=== PATIENT | female | born 1955 | race Caucasian/White ===

== ENCOUNTER 2019-11-09 20:22 | Inpatient (IN) ==
[2019-11-09] MEDS ORDERED: MoRPHine SULFATE 2 MG/ML CARP IV PRN (20:49)
[2019-11-09] MEDS ORDERED: ONDANSETRON INJ 2 MG/ML 2 ML VIAL IV STA (20:49)
[2019-11-09] MEDS ORDERED: ACETAMINOPHEN 1,000 MG/100 ML VIAL IV STA (20:49)
[2019-11-09] MEDS: SODIUM CHLORIDE 0.9% 500 ML IV SCH (21:05)
[2019-11-09] MEDS: MoRPHine SULFATE 4 MG/ML 1 ML CARP\\VIAL IV PRN ×3 (21:05→23:01)
[2019-11-09 21:23] LABS: Basophils # (auto) 0.04 K/uL (0-0.2); Basophils % (auto) 0.3 %; Eosinophils # (auto) 0.25 K/uL (0-0.5); Hematocrit (blood only) 38.5 % (37-47); Hemoglobin 12.4 g/dL (12.0-16.0); Immature Granulocytes # (auto) 0.04 K/uL (0.00-0.02); Immature Granulocytes % (auto) 0.3 %; Lymphocytes # (auto) 2.06 K/uL (1.2-3.4); Lymphocytes % (auto) 16.7 %; Mean Corpuscular Hemoglobin 30.8 pg (25-34); Mean Corpuscular Hgb Conc 32.2 g/dL (32-36); Mean Corpuscular Volume 95.8 fL (80-100); Mean Platelet Volume 10.2 fL (7.4-10.4); Monocytes # (auto) 0.88 K/uL (0.11-0.59); Monocytes % (auto) 7.1 %; Neutrophils # (auto) 9.09 K/uL (1.4-6.5); Neutrophils % (auto) 73.6 %; Platelet Count 205 K/uL (130-400); RDW Coefficient of Variation 13.2 % (11.5-14.5); RDW Standard Deviation 46.1 fL (36.4-46.3); Red Blood Count 4.02 M/uL (4.2-5.4); White Blood Count 12.36 K/uL (4.8-10.8)
[2019-11-09 21:37] LABS: Alanine Aminotransferase 49 U/L (12-78); Albumin Level 3.5 gm/dl (3.4-5.0); Aspartate Aminotransferase 55 U/L (15-37); BUN Creatinine Ratio 28.3 (10-20); Blood Urea Nitrogen 14 mg/dl (7-18); Calcium 9.1 mg/dl (8.5-10.1); Carbon Dioxide 24 mmol/L (21-32); Chloride 105 mmol/L (98-107); Creatinine Clr Calc Pharmacy 131.9 ml/min; Est GFR (African American) 118.5; Est GFR (Non-African American) 102.3; Glucose 87 mg/dl (70-99); Lipase 119 U/L (73-393); Magnesium 1.6 mg/dl (1.8-2.4); Potassium 3.6 mmol/L (3.5-5.1); Sodium 139 mmol/L (136-145)
[2019-11-09 21:41] LABS: Albumin Globulin Ratio 1.2 (0.9-2); Alkaline Phosphatase 73 U/L (45-117); Bilirubin,Total 0.4 mg/dl (0.2-1); Globulin 2.9 gm/dl (2.5-4.0); Phosphorus 3.6 mg/dl (2.5-4.9); Total Protein 6.4 gm/dl (6.4-8.2); Troponin I < 0.015 ng/ml (0-0.045)
--- NOTE | 2019-11-09 21:56 | XRay Report ---
XR chest 1V portable CLINICAL HISTORY: 64 years-old Female presenting with Chest Pain. TECHNIQUE: Portable upright AP view of the chest was obtained. COMPARISON: 10/22/2019. FINDINGS: Cardiomediastinal silhouette normal. No focal opacity. No large effusion or pneumothorax. Osseous str uctures normal. Cholecystectomy clips noted. IMPRESSION: 1. No acute cardiopulmonary disease. Electronically signed by: Delio Mesa M.D. 11/09/2019 9:55 PM
--- NOTE | 2019-11-09 21:58 | XRay Report ---
XR shoulder LT min 2V routine CLINICAL HISTORY: 64 years-old Female presenting with pain fall. TECHNIQUE: Frontal and transscapular Y views of the left shoulder were obtained. COMPARISON: None. FINDINGS: Mildly comminuted fracture of the proximal humeral metadiaphysis with one shaft width lateral displac ement of the distal fracture fragment and one shaft width posterior displacement. Prominent butterfly fracture fragment anteromedially. No convincing evidence of an underlying lesion. The glenohumeral joint remains congruent with the proximal humeral fracture fragment. Acromioclavicul ar joint congruent. Scapular grossly intact. Mild regional soft tissue swelling. No soft tissue gas. IMPRESSION: Significantly displaced and mildly comminuted proximal metadiaphyseal fracture of the left humerus. Electronically signed by: Delio Mesa M.D. 11/09/2019 9:56 PM
--- NOTE | 2019-11-09 21:59 | XRay Report ---
XR humerus LT 2V CLINICAL HISTORY: 64 years-old Female presenting with pain fall. TECHNIQUE: Frontal and lateral views of the left humerus were obtained. COMPARISON: None. FINDINGS: Mildly comminuted fracture of the proximal metadiaphysis of the left humerus with one shaft width lat eral displacement. The presence of posterior displacement better visualized on shoulder radiographs. Anteromedial butterfly fracture fragment noted. No convincing evidence of an underlying lesion to sug gest a pathologic fracture. The elbow joint remains congruent. No additional humeral fracture. IMPRESSION: Mildly comminuted and significantly displaced proximal metadiaphyseal left humerus fracture. Electronically signed by: Delio Mesa M.D. 11/09/2019 9:57 PM
--- NOTE | 2019-11-09 22:01 | XRay Report ---
XR forearm LT 2V CLINICAL HISTORY: 64 years-old Female presenting with pain fall. TECHNIQUE: Frontal and lateral views of the left forearm were obtained. COMPARISON: None. FINDINGS: Comminuted intra-articular distal radial metaphyseal fracture with at least one half shaft width dors al displacement of the articular surface of the radius as well as the carpus. There is impaction sravan g the volar aspect of the fracture plane. There is also dorsal angulation of the articular surface of the distal radius. IMPRESSION: Significantly displaced, impacted, angulated distal radial metaphyseal fracture, which is likely intr a-articular (Colles' fracture). Electronically signed by: Delio Mesa M.D. 11/09/2019 9:59 PM
--- NOTE | 2019-11-09 22:03 | XRay Report ---
XR wrist LT 2V CLINICAL HISTORY: 64 years-old Female presenting with pain fall. TECHNIQUE: Oblique and lateral views of the left wrist were obtained. COMPARISON: None. FINDINGS: Fracture of the distal radial metaphysis, which is intra-articular along the dorsal aspect of the art icular surface. There is nearly 3 mm of articular surface step-off. There is moderate apex volar angu lation of the articular surface (139 degrees). Significant impaction of the dorsal aspect of the prox imal fracture fragment and volar aspect of the distal fracture fragment. There is mild comminution of the distal radial fracture fragment. There may also be an ulnar styloid fracture. Suboptimal evaluat ion of the carpus given limited views. Regional soft tissue swelling, which is exuberant. IMPRESSION: Significantly displaced, angulated, and impacted intra-articular distal radial metaphyseal fracture ( Colles' fracture). Electronically signed by: Delio Mesa M.D. 11/09/2019 10:02 PM
[2019-11-09] MEDS ORDERED: MAGNESIUM SULFATE / D5W 1 GM/100 ML BAG IV STA (22:17)
[2019-11-09] MEDS ORDERED: XYLOCAINE 1%/SOD BICARB 20 ML VIAL INFIL ONE (22:50)
[2019-11-09] MEDS ORDERED: MoRPHine SULFATE 4 MG/ML 1 ML CARP\\VIAL IV STA (23:47)
[2019-11-10] MEDS ORDERED: HYDROmorphone INJ 1 MG/ML SYRINGE IV STA (00:51)
--- NOTE | 2019-11-10 01:11 | Consultation Report ---
DATE OF CONSULTATION: 11/09/2019 CHIEF COMPLAINT: Left shoulder and wrist pain. HISTORY OF PRESENT ILLNESS: Ms. Hale is a 64-year-old right hand dominant female who around 7:30 this evening tripped while at home and fell down to the stairs sustaining mostly impact through her left upper extremity. She was brought from her home to the Emergency Room. X-rays were obtained that demonstrated a proximal humerus fracture as well as a displaced intra-articular distal radius fracture. She has a total hip replacement scheduled on the right side with Dr. Vineet Vieira at the end of this month. She is not using assistive devices, however. She does use medical marijuana to treat her chronic hip pain. She has never had any previous problems with her left shoulder or her left wrist. PAST MEDICAL HISTORY: Obstructive sleep apnea with CPAP at 4 liters per minute of oxygen. Type 2 diabetes, well controlled. She reports her last hemoglobin A1c was 5.5. Gastroparesis, vocal cord paralysis, neuropathy, hip osteoarthritis, GERD, hyperlipidemia, hypertension, and neuropathy. PAST SURGICAL HISTORY: Reviewed in the chart. FAMILY HISTORY AND SOCIAL HISTORY: Also reviewed in the chart. She lives with her significant other in [place]. She does not use tobacco. She does use medical marijuana. MEDICATIONS: Reviewed in the chart as well. PHYSICAL EXAMINATION: GENERAL: She is a pleasant female, alert and oriented x3, in no apparent distress. Pain appears well controlled at present. Mood and affect are appropriate. SKIN: Shows some bruising just anterior to the axilla on the left arm. There are no skin breaks, abrasions or cuts. She does have some swelling noted in the proximal humerus as well as in the left wrist. MUSCULOSKELETAL: The patient is tender to palpation over the proximal humerus. Range of motion exam is deferred in the left upper extremity secondary to the fractures. She has no tenderness over the clavicle or the scapula. No tenderness around the elbow including the radial head, olecranon, medial and lateral epicondyles. She has tenderness over the distal radius with a deformity consistent with a Colles fracture, dorsal displacement of the carpus relative to the forearm. She is neurovascularly intact including sensation to median, ulnar, radial and axillary nerve distributions to light touch, although she does report some paresthesias in her hand diffusely. Fingers are warm and well perfused. She fires EPL, FPL and interossei. LABORATORY DATA: Results reviewed, H and H done today on admission shows her to be 12 and 38.5. White count is elevated at 12.3. Platelets are normal 205. Her BMP is largely unremarkable. X-rays that were done earlier this evening are reviewed. These demonstrate a 100% displaced fracture of the humeral shaft just below the surgical neck with a small area of comminution. Her wrist films show a displaced and dorsally angulated Colles fracture. IMPRESSION: A 64-year-old female with a left displaced intra-articular distal radius fracture and left displaced proximal humerus shaft fracture. PLAN: I reviewed the diagnosis with the patient. Treatment options were discussed. These include surgical and nonsurgical treatment. My recommendations for surgical management is I think she is going to have a hard time rehabbing with nonsurgical treatment of these ipsilateral upper extremity fractures. Furthermore, she is at risk for nonunion or malunion of both fractures with nonsurgical treatment. Risks and benefits of surgery were discussed in detail. The patient elects to proceed. I spoke to the operating room and they have opening to do this first thing tomorrow morning. Since she is neurovascularly intact, I recommend that she does not undergo any closed reduction at present as the potential risks outweigh the potential benefits. She will be seen and admitted by internal medicine for management of her multiple medical comorbidities. She will be n.p.o. after midnight tonight. She will be readmitted to the hospital after surgery. She does have reported medical history of a PE and we will therefore need to use Lovenox for DVT prophylaxis after surgery.
[2019-11-10] MEDS ORDERED: FLUTICASONE PROPIONATE NA SPR 16 GM BTL PRN (01:37)
[2019-11-10] MEDS ORDERED: LORazepam 1 MG/2 ML VIAL IV PRN (01:37)
[2019-11-10] MEDS ORDERED: ACETAMINOPHEN 325 MG TAB PO PRN ×2 (01:37→13:40)
[2019-11-10] MEDS ORDERED: HydrALAZINE HCL 20 MG/ML VIAL IV PRN (01:37)
[2019-11-10] MEDS ORDERED: THIAMINE HCL 100 MG in SYRINGE 9 ML IV STA (01:37)
[2019-11-10] MEDS ORDERED: NITROGLYCERIN SL 0.4 MG/TAB TAB SL PRN (01:37)
[2019-11-10] MEDS ORDERED: ONDANSETRON INJ 2 MG/ML 2 ML VIAL IV PRN ×2 (01:37→08:15)
[2019-11-10] MEDS ORDERED: diazePAM 2 MG TABLET PO PRN (01:37)
[2019-11-10] MEDS ORDERED: CLOBETASOL PROPIONATE 0.05% OINT 15 GM TUBE EXT PRN (01:47)
[2019-11-10] MEDS ORDERED: GLUCOSE 40% GEL 15 GM TUBE PO PRN (02:00)
[2019-11-10] MEDS ORDERED: GLUCAGON FOR INJ 1 MG VIAL SQ PRN (02:00)
[2019-11-10] MEDS ORDERED: DEXTROSE 50% 50 ML SYRINGE IV PRN (02:00)
[2019-11-10] MEDS ORDERED: CARBOHYDRATES FOR HYPOGLYCEMIA PO PRN (02:00)
[2019-11-10] MEDS ORDERED: GLUCOSE 10 TABS/TUBE PO PRN (02:00)
[2019-11-10] MEDS: SODIUM CHLORIDE 0.9% 1000ML 1,000 ML IV SCH (02:15)
[2019-11-10] MEDS: MAGNESIUM SULFATE / D5W 1 GM/100 ML BAG IV SCH ×2 (02:20→03:25)
--- NOTE | 2019-11-10 02:43 | History and Physical Report ---
DATE OF ADMISSION: 11/10/2019 CHIEF COMPLAINT: Status post fall. HISTORY OF PRESENT ILLNESS: This is a 64-year-old female with past medical history significant for type 2 diabetes, MTHFR mutation, history of pulmonary embolism in 2002, hyperlipidemia, sleep apnea on BiPAP with 4 liters oxygen, hypertension, gastroparesis, displacement of lumbar intervertebral disc without myelopathy, history of actinic keratosis, migraine, depression. The patient presents with mechanical fall. The patient says she took her trash can and she put on the lift at the basement stair, thinking about to dispose in the garbage can tomorrow, but the trash started to roll down the stairs and she tried to catch it and in the process she fell down the stairs of the basement and she laid down and she had significant pain in the left shoulder and left upper extremity. No loss of consciousness. Did not hit her head. EMS was called and she was brought in here. Imaging studies show mildly comminuted and significantly displaced proximal metadiaphyseal left humerus fracture and also significantly displaced, impacted angulated distal radial metaphyseal fracture, likely Colles fracture. Ortho was consulted by the ER and they tried to reduce the fracture in the ER, but apparently decided to go to OR in the morning and we are called for admission. The patient has complains of significant pain in the injury site and requesting pain medications. Otherwise, hemodynamics are stable. Denies any chest pain, no shortness of breath, no cough, no nausea, no vomiting, no fever or chills, no headache, no dizziness, no blurred visions, no earache, no runny nose, no sore throat. Appetite is okay. Sleeps okay. No recent weight gain or weight loss. She says she always sweats in the night. No abdominal pain. Normal bowel and bladder movements. No blood in the stools, no black stools, no hematuria, no burning micturition, no swelling in the legs, no rash. She lives with her partner. She has right rotator cuff problem and also right hip problem, and because of that she ambulates with a cane, but she says she ambulates fine with cane and she can climb steps without any problem. She was supposed to get surgery of her right hip at the end of this month. Sys she drinks four glasses of wine every day and takes medical marijuana for her pains but not every day. Denies any withdrawal symptoms if does not take wine. ALLERGIES: ERYTHROMYCIN, MORPHINE, PENICILLIN, PERCOCET, AND VICODIN. PAST MEDICAL HISTORY: As mentioned above. PAST SURGICAL HISTORY: Excision of breast lesion, colonoscopy, and laparoscopic cholecystectomy. MEDICATIONS: The patient is on Valium 2 mg every 6 hours p.r.n., metformin 750 mg p.o. daily, Voltaren 75 mg p.o. b.i.d., Lasix 20 mg p.o. daily, labetalol 100 mg p.o. b.i.d., lisinopril 20 mg b.i.d., Cymbalta 90 mg p.o. daily, atorvastatin 20 mg p.o. daily, gabapentin 200 mg p.o. t.i.d., clobetasol 0.05% cream apply to affected area b.i.d. p.r.n., Flonase 2 sprays into each nostril daily, aspirin 81 mg p.o. daily, oxygen 4 liters through BiPAP during all periods of sleep, vitamin B complex 1 tablet daily, vitamin D 1000 units p.o. daily, Prilosec 20 mg p.o. daily. FAMILY HISTORY: Significant for: Mother had a pacemaker. Father had pulmonary embolism. SOCIAL HISTORY: No smoking history. Alcohol, she drinks 4 glasses of wine every day. No smoking. Drugs, she takes medical marijuana for her heart pains. REVIEW OF SYSTEMS: As per HPI. Rest of review of systems is negative. PHYSICAL EXAMINATION: GENERAL: The patient is alert and awake, not in acute distress. VITAL SIGNS: Temperature 37, pulse 85, respirations 16, blood pressure 148/79, oxygen 95% on 6 liters. HEENT: No pallor, no icterus. Pupils equal, round, reactive to light. Extraocular muscles intact. NECK: No JVD, no neck masses, no carotid bruits. CARDIOVASCULAR: S1, S2 heard, regular rate and rhythm. No murmur, no gallop. RESPIRATORY SYSTEM: Normal AP diameter. No accessory muscle use. No wheezing, no crackles. ABDOMEN: Soft, bowel sounds present, nontender. No distention. CENTRAL NERVOUS SYSTEM: Alert and oriented. Nonfocal. EXTREMITIES: Left upper extremity with ice packs, can able to move other extremities. No edema, no erythema seen. LABORATORIES DATA: WBC 12.3, hemoglobin 12.4, hematocrit 38.5, platelets 205. Sodium 139, potassium 3.6, chloride 105, bicarbonate 24, BUN 14, creatinine 0.5, serum glucose 87, calcium 9.1, phosphorus 3.6, magnesium 1.6, total bilirubin 0.4, AST 55, ALT 49, alkaline phosphatase 73. Troponin I less than 0.015. Lipase 119. IMAGING: Chest x-ray: No acute cardiopulmonary disease. Forearm x-ray significantly displaced, impacted, angulated distal radial metaphyseal fracture which is likely intra-articular Colles fracture. Humerus x-ray, mildly comminuted and significantly displaced proximal metadiaphyseal left humerus fracture. Left shoulder x-ray, significantly displaced, mildly comminuted, proximal metadiaphyseal fracture of the left humerus. Wrist x-ray, left wrist x-ray significantly displaced, angulated impacted intraarticular distal radial metaphyseal fracture. EKG: Normal sinus rhythm, rate of 86, decreased amplitude in anterolateral leads. ASSESSMENT AND PLAN: This is a 64-year-old female who presents with mechanical fall and left humerus fracture and left distal radius fracture. 1. Fall, mechanical fall, left humerus fracture, mildly comminuted, displaced proximal left humerus fracture and also significantly displaced, impacted angulated distal radial fracture. Ortho was notified by the ER and there is plan for take her to the OR in the morning. The patient's labs are okay except for low magnesium, which we will replace. Chest x-ray: No acute findings. Initial troponin negative. EKGs, decreased amplitude in the anterolateral leads, otherwise unremarkable. The patient says she walks with a cane because of the right hip pain, but she can ambulate fine and climb steps okay. Because of some minor EKG changes, we will monitor in med/surg tele with serial cardiac enzymes. If cardiac enzymes are negative, the patient should be at acceptable risk to proceed with surgery. We will keep her n.p.o. and consult ortho. Pain control with IV Dilaudid p.r.n. We will place on IV normal saline 125 mL per hour. 2. Hypomagnesemia. We will replace. 3. Diabetes. We will hold metformin, place her on insulin sliding scale. Follow HbA1c levels, currently n.p.o. 4. History of pulmonary embolism, history of MTHFR mutation. The patient had bilateral pulmonary emboli in 2002. She was on Coumadin until 2009 and 2010. She was advised to stop after 1 year, pulmonary embolism thought to be from MTHFR mutation, and at that time she was also on Hormone pills, but finally she stopped Coumadin in 2009 and 2010 and she did not have any issues since then. 5. Sleep apnea, on BiPAP with 4 liters which we will continue. 6. Hypertension. Continue her labetalol, diuretics. Hold her lisinopril for procedure. Restart after the procedure. We will place on IV hydralazine p.r.n. for now. 7. Depression. Continue Cymbalta. 8. Anxiety. Valium p.r.n. We will hold aspirin until the procedure. 9. History of chronic pain, hip and shoulders. Pain control. Getting pain medication as above. We will hold her diclofenac sodium and continue gabapentin. 10. Alcoholism. drinks 4 glasses of wine every day. Will give Thiamine and multivitamins. Monitor for any withdrawal. IV Ativan prn. 10. Deep venous thrombosis prophylaxis, sequential compression devices for now. 11. Disposition: Closely monitor in the med/surg tele. Level 1 full code. MTDD
--- NOTE | 2019-11-10 03:05 | Emergency Department Note ---
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 The patient states that she took the kitchen trash bag out of the garbage today and set it on a stair lift. She noticed that the stair lift began to move so she reached for the bag and suddenly fell. She states that she did not hit her head and did not pass out. The patient currently complains of left shoulder and left arm pain. Of note she states that she did not feel short of breath today but was placed on O2 by EMS due to her stats. Additionally she is not on blood thinners. The patient is also scheduled for a bilateral hip replacement on November 23, 2019. She also reports that her diagnosis of paralyzed vocal cords was 1 day ago and she was told that it may be due to a virus. She was placed on steroids with no relief and is scheduled for a CT next week. She denies neck pain and offers no additional concerns at this time. Home Medications Home Medications Medication Instructions Recorded Confirmed Type Prilosec OTC 20 mg PO QPM 08/21/18 11/09/19 History aspirin [Aspir-81] 81 mg PO QPM 08/21/18 11/09/19 History atorvastatin 20 mg PO HS 08/21/18 11/09/19 History diazepam [Valium] 2 mg PO Q6 PRN 08/21/18 11/09/19 History furosemide [Lasix] 40 mg PO QAM 08/21/18 11/09/19 History gabapentin [Neurontin] 1,200 mg PO TID 08/21/18 11/09/19 History lisinopril 40 mg PO QAM 08/21/18 11/09/19 History clobetasol 1 applic TOPICAL DAILY PRN 10/17/19 11/09/19 History duloxetine 90 mg PO HS 10/17/19 11/09/19 History fluticasone propionate [Flonase 2 spray INTRANASAL DAILY PRN 10/17/19 11/09/19 History Allergy Relief] tobramycin-dexamethasone 1 drp OPHTHALMIC (EYE) Q6H PRN 10/17/19 11/09/19 Hist ory cholecalciferol (vitamin D3) 1,000 unit PO DAILY 11/09/19 11/09/19 History [Vitamin D3] diclofenac sodium 75 mg PO BID 11/09/19 11/09/19 History labetalol 100 mg PO BID 11/09/19 11/09/19 History metformin [Glucophage XR] 750 mg PO DAILY 11/09/19 11/09/19 History vitamin B complex 1 tab PO DAILY 11/09/19 11/09/19 History Allergies Allergy/AdvReac Type Severity Reaction Status Date / Time hydrocodone Allergy Intermediate ITCHING Verified 11/09/19 21:26 AND VOMITING nickel Allergy Intermediate SWELLING Verified 11/09/19 21:26 AND ITCHING adhesive Allergy Unknown WELTS WITH Verified 11/09/19 21:26 TAPE-PAPER TAPE OKAY codeine Allergy Unknown ITCHING Verified 11/09/19 21:26 AND VOMITING erythromycin base Allergy Unknown METAL Verified 11/09/19 21:26 TASTE IN MOUTH, VOMITING tramadol Allergy Unknown ITCHING Verified 11/09/19 21:26 oxycodone AdvReac Mild ITCH, N&V Verified 11/09/19 21:26 morphine AdvReac Unknown ITCHING, Verified 11/09/19 21:26 VOMITING Penicillins AdvReac Unknown HEART Verified 11/09/19 21:26 RACING Past Med/Surg History Medical History Anemia Anxiety Aspiration pneumonia (Resolved 01/03/12) Barretts esophagus Chronic back pain Depression Diabetes mellitus type 2, controlled Gastroparesis GERD (gastroesophageal reflux disease) controlled Hyperlipidemia Hypertension Migraine MTHFR gene mutation Nocturnal hypoxia Osteoarthritis Peripheral neuropathy Polyp of colon (01/03/12) Pulmonary embolism B/L (2002)- suspected due to OCPs but also diagnosed with MTHFR mutation/previously on anticoagulation (since discontinued) Refractory migraine with aura (01/03/12) Sleep apnea BIPAP with 4L HS Surgical History History of ankle surgery LEFT LIGAMENT REPAIR History of breast biopsy History of cholecystectomy History of colonoscopy History of dilatation and curettage ABLATION History of esophagogastroduodenoscopy (EGD) EGD: 08/23/18: MAC sedation History of tooth extraction Family History Mother Family hx colonic polyps Aunt Family history of diabetes mellitus Social History Preferred Language: Spanish Communication Ability: Effective 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 and A total of 10 systems reviewed and were otherwise negative Physical Exam Vital Signs Vital Signs - 24 hr 11/09/19 20:28 11/09/19 20:30 11/09/19 20:44 Temperature 37 C Temperature Source Oral Pulse Rate 82 77 87 Pulse Rate [Right Finger] Pulse Rate from SpO2 Sensor 82 85 Respiratory Rate 19 19 22 Respiratory Effort / Characteristics Respiratory Depth Blood Pressure 102/72 102/72 Blood Pressure [Right Arm] Blood Pressure Mean 74 82 Blood Pressure Mean [Right Arm] Blood Pressure Position [Right Arm] Pulse Oximetry 99 87 L 99 Oxygen Delivery Method Room Air Oxygen Flow Rate Sepsis Recent Fever Within 48 Hours No Sepsis New/Unexplained Change in Mental Status No Sepsis Action Taken by Nursing No Action Required 11/09/19 20:50 11/09/19 21:00 11/09/19 21:10 Temperature Temperature Source Pulse Rate 81 87 88 Pulse Rate [Right Finger] Pulse Rate from SpO2 Sensor 81 86 Respiratory Rate 16 23 15 Respiratory Effort / Characteristics Respiratory Depth Blood Pressure Blood Pressure [Right Arm] Blood Pressure Mean Blood Pressure Mean [Right Arm] Blood Pressure Position [Right Arm] Pulse Oximetry 97 97 Oxygen Delivery Method Oxygen Flow Rate Sepsis Recent Fever Within 48 Hours Sepsis New/Unexplained Change in Mental Status Sepsis Action Taken by Nursing 11/09/19 21:20 11/09/19 22:04 11/09/19 22:05 Temperature Temperature Source Pulse Rate 80 68 72 Pulse Rate [Right Finger] Pulse Rate from SpO2 Sensor 81 68 72 Respiratory Rate 18 17 14 Respiratory Effort / Characteristics Respiratory Depth Blood Pressure 100/48 L Blood Pressure [Right Arm] Blood Pressure Mean 61 Blood Pressure Mean [Right Arm] Blood Pressure Position [Right Arm] Pulse Oximetry 97 96 94 Oxygen Delivery Method Oxygen Flow Rate Sepsis Recent Fever Within 48 Hours Sepsis New/Unexplained Change in Mental Status Sepsis Action Taken by Nursing 11/09/19 22:06 11/09/19 22:10 11/09/19 22:20 Temperature Temperature Source Pulse Rate 74 77 Pulse Rate [Right Finger] 72 Pulse Rate from SpO2 Sensor 74 78 Respiratory Rate 16 21 20 Respiratory Effort / Characteristics Respiratory Depth Blood Pressure Blood Pressure [Right Arm] 100/48 L Blood Pressure Mean Blood Pressure Mean [Right Arm] 65 Blood Pressure Position [Right Arm] Sitting Pulse Oximetry 94 98 97 Oxygen Delivery Method Nasal Cannula Oxygen Flow Rate 4 Sepsis Recent Fever Within 48 Hours Sepsis New/Unexplained Change in Mental Status Sepsis Action Taken by Nursing 11/09/19 22:30 11/09/19 22:40 11/09/19 22:50 Temperature Temperature Source Pulse Rate 75 78 79 Pulse Rate [Right Finger] Pulse Rate from SpO2 Sensor 75 77 79 Respiratory Rate 13 17 16 Respiratory Effort / Characteristics Respiratory Depth Blood Pressure Blood Pressure [Right Arm] Blood Pressure Mean Blood Pressure Mean [Right Arm] Blood Pressure Position [Right Arm] Pulse Oximetry 97 97 95 Oxygen Delivery Method Oxygen Flow Rate Sepsis Recent Fever Within 48 Hours Sepsis New/Unexplained Change in Mental Status Sepsis Action Taken by Nursing 11/09/19 22:57 11/09/19 22:58 11/09/19 23:00 Temperature Temperature Source Pulse Rate 77 Pulse Rate [Right Finger] Pulse Rate from SpO2 Sensor 79 Respiratory Rate 15 Respiratory Effort / Characteristics Respiratory Depth Blood Pressure Blood Pressure [Right Arm] Blood Pressure Mean Blood Pressure Mean [Right Arm] Blood Pressure Position [Right Arm] Pulse Oximetry 97 96 Oxygen Delivery Method Nasal Cannula Nasal Cannula Oxygen Flow Rate 4 4 Sepsis Recent Fever Within 48 Hours Sepsis New/Unexplained Change in Mental Status Sepsis Action Taken by Nursing 11/09/19 23:15 11/09/19 23:20 11/09/19 23:30 Temperature Temperature Source Pulse Rate 76 83 84 Pulse Rate [Right Finger] Pulse Rate from SpO2 Sensor 76 83 84 Respiratory Rate 18 15 9 L Respiratory Effort / Characteristics Respiratory Depth Blood Pressure Blood Pressure [Right Arm] Blood Pressure Mean Blood Pressure Mean [Right Arm] Blood Pressure Position [Right Arm] Pulse Oximetry 98 97 99 Oxygen Delivery Method Oxygen Flow Rate Sepsis Recent Fever Within 48 Hours Sepsis New/Unexplained Change in Mental Status Sepsis Action Taken by Nursing 11/09/19 23:38 11/09/19 23:40 11/09/19 23:51 Temperature Temperature Source Pulse Rate 82 83 83 Pulse Rate [Right Finger] 80 Pulse Rate from SpO2 Sensor 81 83 83 Respiratory Rate 15 20 18 Respiratory Effort / Characteristics Non-Labored Spontaneous Respiratory Depth Normal Blood Pressure 148/79 H 101/50 L Blood Pressure [Right Arm] 148/79 H Blood Pressure Mean 91 71 Blood Pressure Mean [Right Arm] 102 Blood Pressure Position [Right Arm] Pulse Oximetry 96 95 97 Oxygen Delivery Method Nasal Cannula Oxygen Flow Rate 6 Sepsis Recent Fever Within 48 Hours Sepsis New/Unexplained Change in Mental Status Sepsis Action Taken by Nursing 11/09/19 23:54 11/10/19 00:00 11/10/19 00:01 Temperature Temperature Source Pulse Rate 80 82 Pulse Rate [Right Finger] 85 Pulse Rate from SpO2 Sensor 81 82 Respiratory Rate 16 19 18 Respiratory Effort / Characteristics Non-Labored Spontaneous Respiratory Depth Normal Blood Pressure 108/57 L Blood Pressure [Right Arm] 101/50 L Blood Pressure Mean 73 Blood Pressure Mean [Right Arm] 67 Blood Pressure Position [Right Arm] Pulse Oximetry 95 97 98 Oxygen Delivery Method Nasal Cannula Oxygen Flow Rate 6 Sepsis Recent Fever Within 48 Hours Sepsis New/Unexplained Change in Mental Status Sepsis Action Taken by Nursing 11/10/19 00:10 11/10/19 00:21 11/10/19 00:30 Temperature Temperature Source Pulse Rate 80 78 84 Pulse Rate [Right Finger] Pulse Rate from SpO2 Sensor 80 79 84 Respiratory Rate 19 29 H 22 Respiratory Effort / Characteristics Respiratory Depth Blood Pressure 117/67 Blood Pressure [Right Arm] Blood Pressure Mean 77 Blood Pressure Mean [Right Arm] Blood Pressure Position [Right Arm] Pulse Oximetry 98 99 96 Oxygen Delivery Method Oxygen Flow Rate Sepsis Recent Fever Within 48 Hours Sepsis New/Unexplained Change in Mental Status Sepsis Action Taken by Nursing 11/10/19 00:40 Temperature Temperature Source Pulse Rate 86 Pulse Rate [Right Finger] Pulse Rate from SpO2 Sensor 86 Respiratory Rate 14 Respiratory Effort / Characteristics Respiratory Depth Blood Pressure Blood Pressure [Right Arm] Blood Pressure Mean Blood Pressure Mean [Right Arm] Blood Pressure Position [Right Arm] Pulse Oximetry 100 Oxygen Delivery Method Oxygen Flow Rate Sepsis Recent Fever Within 48 Hours Sepsis New/Unexplained Change in Mental Status Sepsis Action Taken by Nursing GENERAL: Awake, alert, uncomfortable-appearing, in no distress HENT: Normocephalic, atraumatic. Oropharynx with dry mucous membranes and oth erwise unremarkable. EYES: Normal conjunctiva. Sclera non-icteric. NECK: Supple. No nuchal rigidity. FROM. No JVD. RESPIRATORY: CTAB. CARDIAC: Regular rate, normal rhythm. Extremities warm and well perfused. Pulses equal. ABDOMEN: Soft, non-distended. No tenderness to palpation. No rebound or guarding. No masses. RECTAL: Deferred. MUSCULOSKELETAL: Chest examination reveals no tenderness. The back is symmetrical on inspection without obvious abnormality. There is no CVA tende rness to palpation. No joint edema. Deformity to left shoulder and left wrist with distal PMS intact. LOWER EXTREMITIES: Calves are equal size bilaterally and non-tender. No edema. No discoloration. NEURO: Normal sensorium. No sensory or motor deficits noted. SKIN: No rash or jaundice noted. Course Course 2039: Past medical records reviewed. The patient was evaluated in room A02. A complete history and physical exam was performed. 0667: Spoke to Dr. Galicia, Orthopaedic Surgery who will take the patient to the OR in the morning. Dr. Cabrera, [facility] will admit the patient. The patient verbally expressed understanding and agreement of the treatment plan. The patient will be evaluated for further treatment. Administered Medications Acetaminophen (Tylenol) 1,000 mg PO Q6H PRN PRN Reason: Moderate Pain Stop: 12/10/19 16:19 Last Admin: 11/11/19 00:57 Dose: 1,000 mg Documented by: [id number] Atorvastatin Calcium (Lipitor) 20 mg PO HS PADMAJA Stop: 12/10/19 20:59 Last Admin: 11/10/19 20:13 Dose: 20 mg Documented by: [id number] Diphenhydramine HCl (Benadryl Capsule) 25 mg PO Q6H PRN PRN Reason: Itching Stop: 12/10/19 16:29 Last Admin: 11/11/19 03:06 Dose: 25 mg Documented by: [id number] Duloxetine HCl (Cymbalta) 90 mg PO HS [facility] Stop: 12/10/19 20:59 Last Admin: 11/10/19 20:14 Dose: 90 mg Documented by: [id number] Furosemide (Lasix) 40 mg PO QAM [facility] Stop: 12/10/19 08:59 Last Admin: 11/10/19 15:33 Dose: Not Given Documented by: [id number] Gabapentin (Neurontin) 1,200 mg PO TID [facility] Stop: 12/10/19 08:59 Last Admin: 11/10/19 20:13 Dose: 1,200 mg Documented by: [id number] Admin: 11/10/19 15:37 Dose: 1,200 mg Documented by: [id number] Admin: 11/10/19 15:03 Dose: Not Given Documented by: [id number] Hydromorphone HCl (Dilaudid) 1 mg IV Q2H PRN PRN Reason: very severe (9 - 10 / 10) pain Stop: 11/24/19 16:19 Last Admin: 11/11/19 00:58 Dose: 1 mg Documented by: [id number] Admin: 11/10/19 20:31 Dose: 1 mg Documented by: [id number] Labetalol HCl (Normodyne) 100 mg PO BID [facility] Stop: 12/10/19 08:59 Last Admin: 11/10/19 20:12 Dose: 100 mg Documented by: [id number] Admin: 11/10/19 15:34 Dose: 100 mg Documented by: [id number] Polyethylene Glycol (Miralax Powder Packet) 17 gm PO DAILY PRN PRN Reason: Constipation Stop: 12/10/19 01:36 Last Admin: 11/10/19 18:05 Dose: 17 gm Documented by: [id number] Thiamine HCl (Vitamin B-1) 50 mg PO QAM [facility] Stop: 12/10/19 08:59 Last Admin: 11/10/19 15:35 Dose: 50 mg Documented by: [id number] Vitamin B Complex (Vitamin B Complex) 1 tab PO DAILY [facility] Stop: 12/10/19 08:59 Last Admin: 11/10/19 15:35 Dose: 1 tab Documented by: [id number] Vitamin D (Vitamin D3) 1,000 units PO DAILY [facility] Stop: 12/10/19 08:59 Last Admin: 11/10/19 15:36 Dose: 1,000 units Documented by: [id number] Discontinued Medications Cefazolin Sodium (Ancef 2000mg) Confirm Administered Dose 2,000 mg IV .STK-MED ONE Stop: 11/10/19 09:31 Last Admin: 11/10/19 09:32 Dose: 2,000 mg Documented by: [id number] Hydromorphone HCl (Dilaudid) 1 mg IV NOW STA Stop: 11/10/19 00:52 Last Admin: 11/10/19 01:09 Dose: 1 mg Documented by: [id number] Hydromorphone HCl (Dilaudid) 1 mg IV Q3H PRN PRN Reason: Pain Stop: 11/24/19 01:36 Last Admin: 11/10/19 09:05 Dose: 1 mg Documented by: [id number] Admin: 11/10/19 03:23 Dose: 1 mg Documented by: [id number] Hydromorphone HCl (Dilaudid) 0.5 mg IV NOW STA Stop: 11/10/19 05:40 Last Admin: 11/10/19 05:44 Dose: 0.5 mg Documented by: [id number] Hydromorphone HCl (Dilaudid) Confirm Administered Dose 0.5 mg .ROUTE .STK-MED ONE Stop: 11/10/19 05:44 Last Admin: 11/10/19 05:46 Dose: Not Given Documented by: [id number] Sodium Chloride (Nss) 500 mls @ 125 mls/hr IV .Q4H [facility] Stop: 12/09/19 20:59 Last Infusion: 11/09/19 22:05 Dose: 0 mls/hr Documented by: [id number] Admin: 11/09/19 21:05 Dose: 125 mls/hr Documented by: [id number] Acetaminophen (Ofirmev) 1,000 mg in 100 mls @ 400 mls/hr IV NOW STA Stop: 11/09/19 21:03 Last Infusion: 11/09/19 21:30 Dose: 0 mls/hr Documented by: [id number] Admin: 11/09/19 21:05 Dose: 400 mls/hr Documented by: [id number] Magnesium Sulfate/Dextrose (Magnesium Sulfate / D5w) 1 gm in 100 mls @ 100 mls/hr IV Q1H STA Stop: 11/09/19 23:16 Last Infusion: 11/09/19 23:00 Dose: 0 mls/hr Documented by: [id number] Admin: 11/09/19 22:26 Dose: 100 mls/hr Documented by: [id number] Sodium Chloride (Nss 1000ml) 1,000 mls @ 125 mls/hr IV .Q8H [facility] Stop: 12/10/19 01:36 Last Infusion: 11/10/19 10:15 Dose: 0 mls/hr Documented by: [id number] Admin: 11/10/19 02:15 Dose: 125 mls/hr Documented by: [id number] Magnesium Sulfate/Dextrose (Magnesium Sulfate / D5w) 1 gm in 100 mls @ 100 mls/hr IV Q1H [facility] Stop: 11/10/19 03:36 Last Infusion: 11/10/19 04:51 Dose: 0 mls/hr Documented by: [id number] Admin: 11/10/19 03:25 Dose: 100 mls/hr Documented by: [id number] Infusion: 11/10/19 03:21 Dose: 0 mls/hr Documented by: [id number] Admin: 11/10/19 02:20 Dose: 100 mls/hr Documented by: [id number] Thiamine HCl 100 mg/ Syringe 10 mls @ 2 mls/min IV NOW STA Stop: 11/10/19 01:41 Last Admin: 11/10/19 02:17 Dose: 2 mls/min Documented by: [id number] Cefazolin Sodium (Ancef 2000mg) 2,000 mg in 15 mls @ 3.75 mls/min IV PREOP ONE Stop: 11/10/19 11:52 Last Admin: 11/10/19 11:45 Dose: 3.75 mls/min Documented by: [id number] Insulin Aspart (Novolog Flexpen) 0 units SC ACHS [facility] Stop: 12/10/19 07:29 Last Admin: 11/10/19 07:56 Dose: Not Given Documented by: [id number] Cosigned by: [id number] Lidocaine HCl (Buffered Lidocaine 1%) 20 ml INFIL NOW ONE Stop: 11/09/19 22:51 Last Admin: 11/09/19 23:00 Dose: 20 ml Documented by: [id number] Morphine Sulfate (Morphine Sulfate) 4 mg IV Q1H PRN PRN Reason: Severe Pain (Rating 7,8,9,10) Stop: 11/23/19 20:48 Last Admin: 11/09/19 23:01 Dose: 4 mg Documented by: [id number] Admin: 11/09/19 22:04 Dose: 4 mg Documented by: [id number] Admin: 11/09/19 21:05 Dose: 4 mg Documented by: [id number] Morphine Sulfate (Morphine Sulfate) 4 mg IV NOW STA Stop: 11/09/19 23:48 Last Admin: 11/09/19 23:51 Dose: 4 mg Documented by: [id number] Multivitamins/Minerals (Multivitamin W/ Minerals Tab) 1 tab PO QAM PADMAJA Stop: 12/10/19 08:59 Last Admin: 11/10/19 19:33 Dose: Not Given Documented by: [id number] Ondansetron HCl (Zofran) 4 mg IV NOW STA Stop: 11/09/19 20:50 Last Admin: 11/09/19 21:05 Dose: 4 mg Documented by: [id number] Oxycodone HCl (Roxicodone Immediate Rel) 5 mg PO Q4 PRN PRN Reason: Pain Stop: 11/24/19 13:39 Last Admin: 11/10/19 16:07 Dose: 5 mg Documented by: [id number] Medical Decision Making Differential Diagnosis Differential diagnosis includes but is not limited to etiologies such as fracture, dislocation, contusion, strain, ligamentous injury, tendon rupture, and septic joint. Medical Records Attestation: I reviewed the patient's medical records. Home Medications Current Medication List: was personally reviewed by me Laboratory Data Attestation: I reviewed the patient's lab results. Result diagrams: 11/10/19 07:29 11/10/19 07:29 Lab Results 11/09/19 11/09/19 Range/Units 21:06 21:06 WBC 12.36 H (4.8-10.8) K/uL RBC 4.02 L (4.2-5.4) M/uL Hgb 12.4 (12.0-16.0) g/dL Hct 38.5 (37-47) % MCV 95.8 (80-100) fL MCH 30.8 (25-34) pg MCHC 32.2 (32-36) g/dL RDW Std Deviation 46.1 (36.4-46.3) fL RDW Coeff of Shanna 13.2 (11.5-14.5) % Plt Count 205 (130-400) K/uL MPV 10.2 (7.4-10.4) fL Immature Gran % (Auto) 0.3 % Neut % (Auto) 73.6 % Lymph % (Auto) 16.7 % [place] % (Auto) 7.1 % Eos % (Auto) 2.0 % Baso % (Auto) 0.3 % Immature Gran # (Auto) 0.04 H (0.00-0.02) K/uL Neut # (Auto) 9.09 H (1.4-6.5) K/uL Lymph # (Auto) 2.06 (1.2-3.4) K/uL [place] # (Auto) 0.88 H (0.11-0.59) K/uL Eos # (Auto) 0.25 (0-0.5) K/uL Baso # (Auto) 0.04 (0-0.2) K/uL Sodium 139 (136-145) mmol/L Potassium 3.6 (3.5-5.1) mmol/L Chloride 105 (98-107) mmol/L Carbon Dioxide 24 (21-32) mmol/L Anion Gap 10.0 (3-11) BUN 14 (7-18) mg/dl Creatinine 0.50 L (0.6-1.2) mg/dl Est Cr Clr Drug Dosing 131.9 ml/min Est GFR ( Amer) 118.5 Est GFR (Non-Af Amer) 102.3 BUN/Creatinine Ratio 28.3 H (10-20) Glucose 87 (70-99) mg/dl Calcium 9.1 (8.5-10.1) mg/dl Phosphorus 3.6 (2.5-4.9) mg/dl Magnesium 1.6 L (1.8-2.4) mg/dl Total Bilirubin 0.4 (0.2-1) mg/dl AST 55 H (15-37) U/L ALT 49 (12-78) U/L Alkaline Phosphatase 73 (45-117) U/L Troponin I < 0.015 (0-0.045) ng/ml Total Protein 6.4 (6.4-8.2) gm/dl Albumin 3.5 (3.4-5.0) gm/dl Globulin 2.9 (2.5-4.0) gm/dl Albumin/Globulin Ratio 1.2 (0.9-2) Lipase 119 (73-393) U/L Imaging Data Radiologist's Impression: Radiology results as stated below per my review and the radiologist's interpretation: XR chest 1V portable CLINICAL HISTORY: 64 years-old Female presenting with Chest Pain. TECHNIQUE: Portable upright AP view of the chest was obtained. COMPARISON: 10/22/2019. FINDINGS: Cardiomediastinal silhouette normal. No focal opacity. No large effusion or pneumothorax. Osseous structures normal. Cholecystectomy clips noted. IMPRESSION: 1. No acute cardiopulmonary disease. Electronically signed by: Delio Mesa M.D. 11/09/2019 9:55 PM XR forearm LT 2V CLINICAL HISTORY: 64 years-old Female presenting with pain fall. TECHNIQUE: Frontal and lateral views of the left forearm were obtained. COMPARISON: None. FINDINGS: Comminuted intra-articular distal radial metaphyseal fracture with at least one half shaft width dorsal displacement of the articular surface of the radius as well as the carpus. There is impaction along the volar aspect of the fracture plane. There is also dorsal angulation of the articular surface of the distal r adius. IMPRESSION: Significantly displaced, impacted, angulated distal radial metaphyseal fracture, which is likely intra-articular (Colles' fracture). Electronically signed by: Delio Mesa M.D. 11/09/2019 9:59 PM XR humerus LT 2V CLINICAL HISTORY: 64 years-old Female presenting with pain fall. TECHNIQUE: Frontal and lateral views of the left humerus were obtained. COMPARISON: None. FINDINGS: Mildly comminuted fracture of the proximal metadiaphysis of the left humerus with one shaft width lateral displacement. The presence of posterior displacement better visualized on shoulder radiographs. Anteromedial butterfly fracture fragment noted. No convincing evidence of an underlying lesion to suggest a pathologic fracture. The elbow joint remains congruent. No additional humeral fracture. IMPRESSION: Mildly comminuted and significantly displaced proximal metadiaphyseal left humerus fracture. Electronically signed by: Delio Mesa M.D. 11/09/2019 9:57 PM XR shoulder LT min 2V routine CLINICAL HISTORY: 64 years-old Female presenting with pain fall. TECHNIQUE: Frontal and transscapular Y views of the left shoulder were obtained. COMPARISON: None. FINDINGS: Mildly comminuted fracture of the proximal humeral metadiaphysis with one shaft width lateral displacement of the distal fracture fragment and one shaft width posterior displacement. Prominent butterfly fracture fragment anteromedially. No convincing evidence of an underlying lesion. The glenohumeral joint remains congruent with the proximal humeral fracture fragment. Acromioclavicular joint congruent. Scapular grossly intact. Mild regional soft tissue swelling. No soft tissue gas. IMPRESSION: Significantly displaced and mildly comminuted proximal metadiaphyseal fracture of the left humerus. Electronically signed by: Delio Mesa M.D. 11/09/2019 9:56 PM XR wrist LT 2V CLINICAL HISTORY: 64 years-old Female presenting with pain fall. TECHNIQUE: Oblique and lateral views of the left wrist were obtained. COMPARISON: None. FINDINGS: Fracture of the distal radial metaphysis, which is intra-articular along the dorsal aspect of the articular surface. There is nearly 3 mm of articular surface step-off. There is moderate apex volar angulation of the articular surface (139 degrees). Significant impaction of the dorsal aspect of the proximal fracture fragment and volar aspect of the distal fracture fragment. There is mild comminution of the distal radial fracture fragment. There may also be an ulnar styloid fracture. Suboptimal evaluation of the carpus given limited views. Regional soft tissue swelling, which is exuberant. IMPRESSION: Significantly displaced, angulated, and impacted intra-articular distal radial metaphyseal fracture (Colles' fracture). Electronically signed by: Delio Mesa M.D. 11/09/2019 10:02 PM ECG Data Attestation: I personally reviewed and interpreted this ECG as follows: Indication: + other (fall) Rate (beats per minute): 86 Rhythm: + normal sinus ECG Findings: + LVH and + Other (no acute ischemia, QTc is 457); no PACs and no PVCs Blood Pressure Blood Pressure Findings: Low blood pressure Blood Pressure Disposition: further management by hospitalist SHAY Narrative The patient is a pleasant 64-year-old woman with a past medical history of sleep apnea on nocturnal oxygen at home who presents emergency department after having a mechanical fall when reaching for a falling trash can per HPI. On arrival the patient complains of left shoulder and wrist pain. On exam the patient has deformity of the left upper arm and wrist. Distal PMS intact. EKG without overt acute ischemia. Chest x-ray negative for acute cardiopulmonary process. WBC 12.3, nonspecific. H/H and platelets within normal limits. Chemistry without acidosis. Magnesium 1.6 with repletion provided. AST slightly elevated at 55, nonspecific. Otherwise, electrolytes and LFTs unremarkable. Opponent negative/undetectable. Pain films of the left upper extremity demonstrate comminuted and displaced proximal humerus fracture as well as difficulty displaced angulated and impacted intra-articular distal radius fracture. Findings reviewed with the patient and she did confirm that it would be difficult for her to action at home with these injuries given her chronic right rotator cuff injury and hip arthritis for which she had a an upcoming hip replacement scheduled this month. Case was discussed with Dr. Galicia, orthopedics on-call, who evaluated the patient at the bedside and given the patient's radius and humerus fracture and patient is with reasonable pain control, reduction in the emergency department was deferred as they will be able to take the patient to the operating room in the morning. Case was discussed with Dr. Cabrera, [facility] hospitalist, who admit the patient for medical management, prior/post surgery. Impression & Plan Left humeral fracture, Distal radius fracture, left, History of sleep apnea, Osteoarthritis of right hip Discharge Plan Visit Data *Final* Discharge Date/Time: 11/10/19 01:14 Chief Complaint: Fall Stated Complaint: WRIST/ SHOULDER PAIN ED Provider: Peter Gomez Discharge Problem: Left humeral fracture, Distal radius fracture, left, History of sleep apnea, Osteoarthritis of right hip Patient Disposition: Admitted As Inpatient Discharge Instructions Interventions: ED Discharge Assessment Last Done: 11/10/19 01:14 Discharge Problem: Left humeral fracture Qualifiers: Encounter type: initial encounter Humerus Location: proximal Fracture type: closed Fracture morphology: other fracture Fracture alignment: displaced Qualified Code(s): S42.292A - Other displaced fracture of upper end of left humerus, initial encounter for closed fracture Distal radius fracture, left Qualifiers: Encounter type: initial encounter Fracture type: closed Fracture morphology: Colles' Qualified Code(s): S52.532A - Colles' fracture of left radius, initial encounter for closed fracture The scribe's documentation has been prepared under my direction and personally reviewed by me in its entirety. I confirm that the note above accurately reflects all work, treatment, procedures, and medical decision making performed by me.
[2019-11-10] MEDS: HYDROmorphone INJ 1 MG/ML SYRINGE IV PRN ×3 (03:23→20:31)
[2019-11-10] MEDS ORDERED: HYDROmorphone INJ 0.5 MG/0.5 ML SYR IV STA (05:39)
[2019-11-10] MEDS ORDERED: HYDROmorphone INJ 0.5 MG/0.5 ML SYR ONE (05:43)
[2019-11-10 07:56] LABS: Basophils # (auto) 0.01 K/uL (0-0.2); Basophils % (auto) 0.1 %; Eosinophils # (auto) 0.17 K/uL (0-0.5); Eosinophils % (auto) 2.3 %; Hematocrit (blood only) 36.8 % (37-47); Hemoglobin 11.6 g/dL (12.0-16.0); Immature Granulocytes # (auto) 0.02 K/uL (0.00-0.02); Immature Granulocytes % (auto) 0.3 %; Lymphocytes # (auto) 1.28 K/uL (1.2-3.4); Lymphocytes % (auto) 17.3 %; Mean Corpuscular Hemoglobin 31.4 pg (25-34); Mean Corpuscular Hgb Conc 31.5 g/dL (32-36); Mean Corpuscular Volume 99.5 fL (80-100); Monocytes # (auto) 0.62 K/uL (0.11-0.59); Monocytes % (auto) 8.4 %; Neutrophils # (auto) 5.29 K/uL (1.4-6.5); Neutrophils % (auto) 71.6 %; Platelet Count 185 K/uL (130-400); RDW Coefficient of Variation 13.6 % (11.5-14.5); RDW Standard Deviation 49.2 fL (36.4-46.3); White Blood Count 7.39 K/uL (4.8-10.8)
[2019-11-10] MEDS: INSULIN ASPART 100 UNITS/ML 3 ML PEN SC SCH (07:56)
--- NOTE | 2019-11-10 08:03 | Orthopedic Progress Note ---
Date of Service November 10, 2019 Assessment & Plan (1) Left humeral fracture: To operating room this morning for ORIF L proximal humerus fracture and L distal radius fracture. Re-admit to floor post-op. Start Lovenox for DVT prophylaxis Tuesday AM. Present on Admission?: Yes (2) Distal radius fracture, left: Present on Admission?: Yes Subjective Pain reasonably controlled overnight. No fevers/chills, cp, sob Physical Exam Physical Exam: L arm: unchanged from yesterday. Fingers w/wp. Results & Data Vital Signs (Past 12 Hours) Vital Signs Temp Pulse Pulse Resp BP BP Pulse Ox 11/10/19 07:27 37.1 C 91 H 18 130/76 98 11/10/19 04:11 72 11/10/19 01:49 36.7 C 65 20 120/75 97 11/10/19 01:02 87 26 H 99 11/10/19 01:00 82 19 116/64 98 11/10/19 00:51 84 24 95 11/10/19 00:40 86 14 100 11/10/19 00:30 84 22 117/67 96 11/10/19 00:21 78 29 H 99 11/10/19 00:10 80 19 98 11/10/19 00:01 82 18 108/57 L 98 11/10/19 00:00 80 19 97 11/09/19 23:54 85 16 101/50 L 95 11/09/19 23:51 83 18 101/50 L 97 11/09/19 23:40 83 20 95 11/09/19 23:38 82 80 15 148/79 H 148/79 H 96 11/09/19 23:30 84 9 L 99 11/09/19 23:20 83 15 97 11/09/19 23:15 76 18 98 11/09/19 23:00 77 15 96 11/09/19 22:58 97 11/09/19 22:50 79 16 95 11/09/19 22:40 78 17 97 11/09/19 22:30 75 13 97 11/09/19 22:20 77 20 97 11/09/19 22:10 74 21 98 11/09/19 22:06 72 16 100/48 L 94 11/09/19 22:05 72 14 94 11/09/19 22:04 68 17 100/48 L 96 11/09/19 21:20 80 18 97 11/09/19 21:10 88 15 97 11/09/19 21:00 87 23 11/09/19 20:50 81 16 97 11/09/19 20:44 87 22 99 11/09/19 20:30 37 C 77 19 102/72 87 L 11/09/19 20:28 82 19 102/72 99 (1) Left humeral fracture Encounter type: initial encounter Fracture alignment: displaced Fracture type: closed Humerus Location: proximal (2) Distal radius fracture, left Encounter type: initial encounter Fracture morphology: Colles' Fracture type: closed Qualified Code(s): S52.532A - Colles' fracture of left radius, initial encounter for closed fracture
[2019-11-10] MEDS ORDERED: ROPIVACAINE 0.5% 5 MG/ML 30 ML VIAL ONE (08:09)
[2019-11-10] MEDS ORDERED: fentaNYL citrate 100 MCG/2 ML VIAL IV PRN (08:15)
[2019-11-10] MEDS ORDERED: ePHEDrine sulfate 50 MG/ML AMP IV PRN (08:15)
[2019-11-10] MEDS ORDERED: ATROPINE SULFATE 0.1 MG/ML 10ML SYR IV PRN (08:15)
--- NOTE | 2019-11-10 08:18 | Anesthesiology Consultation ---
Date of Service November 10, 2019 Assessment & Plan (1) Encounter for pre-operative examination: Chart Review Chart Review: Acceptable Risk for Surgery Consults Requested none ASA ASA3 Proposed Anesthesia Anesthesia Type: General Regional Regional Laterality: Left Site: Interscalene Risk / Benefits Reviewed With: PT / POA / Parent / Guardian, Accepts Plan and Informed Consent Obtained History Surgery Operation Date: 11/10/19 07:30 Proposed Procedures p Open Reduction Internal Fixation Gordon - Delio Galicia MD Height/Weight Height: 5 ft 7 in Weight: 90 kg Allergies Allergy/AdvReac Type Severity Reaction Status Date / Time hydrocodone Allergy Intermediate ITCHING Verified 11/09/19 21:26 AND VOMITING nickel Allergy Intermediate SWELLING Verified 11/09/19 21:26 AND ITCHING adhesive Allergy Unknown WELTS WITH Verified 11/09/19 21:26 TAPE-PAPER TAPE OKAY codeine Allergy Unknown ITCHING Verified 11/09/19 21:26 AND VOMITING erythromycin base Allergy Unknown METAL Verified 11/09/19 21:26 TASTE IN MOUTH, VOMITING tramadol Allergy Unknown ITCHING Verified 11/09/19 21:26 oxycodone AdvReac Mild ITCH, N&V Verified 11/09/19 21:26 morphine AdvReac Unknown ITCHING, Verified 11/09/19 21:26 VOMITING Penicillins AdvReac Unknown HEART Verified 11/09/19 21:26 RACING Medications Home Medications Medication Instructions Recorded Confirmed Last Taken Prilosec OTC 20 mg PO QPM 08/21/18 11/09/19 08/22/18 18:00 aspirin [Aspir-81] 81 mg PO QPM 08/21/18 11/09/19 08/21/18 21:00 atorvastatin 20 mg PO HS 08/21/18 11/09/19 08/22/18 21:00 diazepam [Valium] 2 mg PO Q6 PRN 08/21/18 11/09/19 08/22/18 21:00 furosemide [Lasix] 40 mg PO QAM 08/21/18 11/09/19 Unknown gabapentin [Neurontin] 1,200 mg PO TID 08/21/18 11/09/19 08/23/18 07:30 lisinopril 40 mg PO QAM 08/21/18 11/09/19 08/22/18 08:00 clobetasol 1 applic TOPICAL DAILY PRN 10/17/19 11/09/19 Unknown duloxetine 90 mg PO HS 10/17/19 11/09/19 Unknown fluticasone propionate [Flonase 2 spray INTRANASAL DAILY PRN 10/17/19 11/09/19 Unknown Allergy Relief] tobramycin-dexamethasone 1 drp OPHTHALMIC (EYE) Q6H PRN 10/17/19 11/09/19 Unknown cholecalciferol (vitamin D3) 1,000 unit PO DAILY 11/09/19 11/09/19 Unknown [Vitamin D3] diclofenac sodium 75 mg PO BID 11/09/19 11/09/19 Unknown labetalol 100 mg PO BID 11/09/19 11/09/19 Unknown metformin [Glucophage XR] 750 mg PO DAILY 11/09/19 11/09/19 Unknown vitamin B complex 1 tab PO DAILY 11/09/19 11/09/19 Unknown Active Medications Generic Name Dose Route Start Last Admin Trade Name Freq PRN Reason Stop Dose Admin Hydromorphone HCl 1 mg 11/10/19 01:37 11/10/19 09:05 Dilaudid IV 11/24/19 01:36 1 mg Q3H PRN Administration Pain Sodium Chloride 1,000 mls @ 125 mls/hr 11/10/19 01:37 11/10/19 02:15 Nss 1000ml IV 12/10/19 01:36 125 mls/hr .Q8H PADMAJA Administration Insulin Aspart 0 units 11/10/19 07:30 11/10/19 07:56 Novolog Flexpen SC 12/10/19 07:29 Not Given ACHS PADMAJA NPO Date Last Intake of Fluids: 11/09/19 Time Last Intake of Fluids: 23:30 Last Intake of Fluids Comment: water Date Last Intake of Solids: 11/09/19 Time Last Intake of Solids: 19:00 Past Medical History Medical History Anemia Anxiety Barretts esophagus Chronic back pain Depression Diabetes mellitus, type 2 NIDDM Gastroparesis GERD (gastroesophageal reflux disease) controlled Hyperlipidemia Hypertension Migraine MTHFR gene mutation Osteoarthritis Peripheral neuropathy Pulmonary embolism B/L (2002)- suspected due to OCPs but also diagnosed with MTHFR mutation/previously on anticoagulation (since discontinued) Sleep apnea BIPAP with 4L HS Exercise / Class Metabolic Activity II 4-5 Yardwork/Stairs/Walk up hill Past Family History Family History Mother Family hx colonic polyps Aunt Family history of diabetes mellitus Past Surgical History Surgical History History of ankle surgery LEFT LIGAMENT REPAIR History of breast biopsy History of cholecystectomy History of colonoscopy History of dilatation and curettage ABLATION History of esophagogastroduodenoscopy (EGD) EGD: 08/23/18: MAC sedation History of tooth extraction Past Anesthesia History No Hx of Anesthesia Complications and No Family Hx of Anesthesia Complications History of PONV No Hx of PONV and No Hx of Motion Sickness Social History Smoking Status: Never smoker Hx Alcohol Use: Yes Alcohol type: wine alcohol intake frequency: 0-2 drinks per day Alcohol Intake Frequency Comment: wine daily Hx Substance Use: Yes substance use type: marijuana Substance Use Type Other:: MARIJUANA (MONTHLY)- ADVISED Physical Exam Vital Signs Last Vital Signs Temp 98.8 F 11/10/19 07:27 Pulse 91 H 11/10/19 07:27 Resp 18 11/10/19 07:27 BP 130/76 11/10/19 07:27 Pulse Ox 98 11/10/19 07:27 ENMT Mouth: no dentition abnormality Thyromental Distance: > or= 3.5 Finger Breadths Mallampati Class: II Neck normal visual inspection Respiratory normal respiratory effort Auscultation: lungs clear to auscultation bilaterally Cardiovascular Rate/Rhythm: regular rate and regular rhythm Testing Laboratory Results 11/10/19 07:29 11/10/19 07:29 Hemoglobin A1c 5.2 % (4.5-5.6) 11/10/19 07:29 Electrocardiogram Date: 11/09/19 Normal sinus rhythm, rate 86 bpm Moderate voltage criteria for LVH, may be normal variant Possible Lateral infarct , age undetermined Abnormal ECG When compared with ECG of 22-OCT-2019 11:55, Borderline criteria for Lateral infarct are now Present T wave amplitude has decreased in Anterolateral leads Chest X-Ray Date: 11/09/19 Findings: + NAD
[2019-11-10 08:27] LABS: BUN Creatinine Ratio 21.1 (10-20); Calcium 8.4 mg/dl (8.5-10.1); Creatinine Clr Calc Pharmacy 123.5 ml/min; Est GFR (African American) 116.3; Est GFR (Non-African American) 100.3; Magnesium 2.2 mg/dl (1.8-2.4); Potassium 4.2 mmol/L (3.5-5.1)
[2019-11-10 08:31] LABS: Estimated Average Glucose 103 mg/dl; Hemoglobin A1C 5.2 % (4.5-5.6)
[2019-11-10] MEDS ORDERED: CEROVITE ADV FORMULA TAB PO SCH (09:00)
[2019-11-10] MEDS ORDERED: NEOSTIGMINE METHYLSULFATE 5 MG/5 ML SYR ONE (09:04)
[2019-11-10] MEDS ORDERED: DEXAMETHASONE SOD INJ 4 MG/ML VIAL ONE (09:04)
[2019-11-10] MEDS ORDERED: fentaNYL citrate 100 MCG/2 ML VIAL ONE ×2 (09:04→12:26)
[2019-11-10] MEDS ORDERED: PROPOFOL IV EMULSION 10 MG/ML 20 ML VIAL IV ONE (09:04)
[2019-11-10] MEDS ORDERED: LIDOCAINE HCL 2% 2 ML VIAL/AMP(20MG/ML) INFIL ONE (09:04)
[2019-11-10] MEDS ORDERED: GLYCOPYRROLATE 0.2 MG/ML VIAL ONE (09:04)
[2019-11-10] MEDS ORDERED: MIDAZOLAM HCL 1 MG/ML 2ML VIAL ONE (09:04)
[2019-11-10] MEDS ORDERED: ONDANSETRON INJ 2 MG/ML 2 ML VIAL ONE ×2 (09:04→10:18)
[2019-11-10] MEDS ORDERED: CEFAZOLIN 2,000 MG/15 ML IV PUSH IV ONE (09:30)
[2019-11-10] MEDS ORDERED: PHENYLEPHRINE 100MCG/ML 5ML SYR ONE (10:23)
[2019-11-10] MEDS ORDERED: PHENYLEPHRINE HCL 10 MG/ML VIAL ONE (10:23)
[2019-11-10] MEDS ORDERED: LARYING-O-JET KIT (LTA) ONE (11:24)
[2019-11-10] MEDS ORDERED: ROCURONIUM BROMIDE 10 MG/ML 5 ML VIAL ONE (11:24)
[2019-11-10] MEDS ORDERED: CEFAZOLIN 250 MG/ML 1 GM VIAL ONE (11:40)
[2019-11-10] MEDS ORDERED: CEFAZOLIN 2000MG 2,000 MG/15 ML SYR IV ONE (11:49)
--- NOTE | 2019-11-10 13:29 | Post Operative Brief Note ---
Immediate Post Op Note v1 Date of Surgery November 10, 2019 Pre & Post Diagnosis Operation Date: 11/10/19 07:30 Pre-Op Diagnosis: Left comminuted intra-articular distal radius and left humeral shaft fracture Post-Op Diagnosis: Left comminuted intra-articular distal radius and left humeral shaft fracture I identified the patient and participated in the time-out.: Yes Procedure Operation Date: 11/10/19 07:30 Actual Procedures p Open Reduction Internal Fixation Radius and Humerus Fracture(Left) - Delio Galicia MD Surgeon Delio Galicia MD Accounts Receivable Assistant Jesse Mendenhall MD Estimated Blood Loss 200 Findings Consistent with Post-Op Diagnosis Fluids 1300 cc Anesthesia Type General Regional Complications none Disposition Accompanied Patient To Recovery: No Disposition: Recovery Room
[2019-11-10] MEDS ORDERED: OXYCODONE HCL IR 5 MG TAB (IMMEDIATE RELEASE) PO PRN (13:40)
--- NOTE | 2019-11-10 13:52 | Operative Report ---
Post Operative Report Pre & Post Diagnosis Operation Date: 11/10/19 07:30 Pre-Op Diagnosis: radius and humeral fracture Post-Op Diagnosis: radius and humeral fracture I identified the patient and participated in the time-out.: Yes Procedure Operation Date: 11/10/19 07:30 Actual Procedures p Open Reduction Internal Fixation Radius and Humerus Fracture(Left) - Delio Galicia MD Surgeon Delio Galicia MD Steelscope Operator Jesse Mendenhall MD Estimated Blood Loss 200 Findings Consistent with Post-Op Diagnosis Specimens None Complications none Disposition Accompanied Patient To Recovery: Yes Disposition: Recovery Room Description of Procedure Supine, hand table, standard prep and drape, time out Open Reduction Internal Fixation Radius and Humerus Fracture(Left) Please see Dr Galicia's notes for procedure details I was present throughout the case, assisted for wound closure and transferred to PACU ins table condition I attest to the content of the Intraoperative Record and any orders documented t herein. Any exceptions are noted below.
--- NOTE | 2019-11-10 14:16 | Anesthesiology Progress Note ---
Date of Service November 10, 2019 Anesthesia Post Procedure Vital Signs Vital Signs: Temp Pulse Pulse Pulse Resp BP BP 11/10/19 14:15 100 H 18 158/86 H 11/10/19 14:05 102 H 18 148/104 H 11/10/19 13:58 98.4 F 100 H 14 148/101 H 11/10/19 08:00 88 11/10/19 07:27 98.8 F 91 H 18 130/76 11/10/19 04:11 72 11/10/19 01:49 98.1 F 65 20 120/75 11/10/19 01:02 87 26 H 11/10/19 01:00 82 19 116/64 11/10/19 00:51 84 24 11/10/19 00:40 86 14 11/10/19 00:30 84 22 117/67 11/10/19 00:21 78 29 H 11/10/19 00:10 80 19 11/10/19 00:01 82 18 108/57 L 11/10/19 00:00 80 19 11/09/19 23:54 85 16 101/50 L 11/09/19 23:51 83 18 101/50 L 11/09/19 23:40 83 20 11/09/19 23:38 82 80 15 148/79 H 148/79 H 11/09/19 23:30 84 9 L 11/09/19 23:20 83 15 11/09/19 23:15 76 18 11/09/19 23:00 77 15 11/09/19 22:58 11/09/19 22:50 79 16 11/09/19 22:40 78 17 11/09/19 22:30 75 13 11/09/19 22:20 77 20 11/09/19 22:10 74 21 11/09/19 22:06 72 16 100/48 L 11/09/19 22:05 72 14 11/09/19 22:04 68 17 100/48 L 11/09/19 21:20 80 18 11/09/19 21:10 88 15 11/09/19 21:00 87 23 11/09/19 20:50 81 16 11/09/19 20:44 87 22 11/09/19 20:30 98.6 F 77 19 102/72 11/09/19 20:28 82 19 102/72 Pulse Ox 11/10/19 14:15 95 11/10/19 14:05 94 11/10/19 13:58 95 11/10/19 08:00 11/10/19 07:27 98 11/10/19 04:11 11/10/19 01:49 97 11/10/19 01:02 99 11/10/19 01:00 98 11/10/19 00:51 95 11/10/19 00:40 100 11/10/19 00:30 96 11/10/19 00:21 99 11/10/19 00:10 98 11/10/19 00:01 98 11/10/19 00:00 97 11/09/19 23:54 95 11/09/19 23:51 97 11/09/19 23:40 95 11/09/19 23:38 96 11/09/19 23:30 99 11/09/19 23:20 97 11/09/19 23:15 98 11/09/19 23:00 96 11/09/19 22:58 97 11/09/19 22:50 95 11/09/19 22:40 97 11/09/19 22:30 97 11/09/19 22:20 97 11/09/19 22:10 98 11/09/19 22:06 94 11/09/19 22:05 94 11/09/19 22:04 96 11/09/19 21:20 97 11/09/19 21:10 97 11/09/19 21:00 11/09/19 20:50 97 11/09/19 20:44 99 11/09/19 20:30 87 L 11/09/19 20:28 99 Pain Intensity Left Arm: Pain Intensity: 9 Transfer of Care Handoff Completed per policy Notes Mental Status: alert / awake / arousable and participated in evaluation Patient Amnestic to Procedure: Yes Nausea / Vomiting: adequately controlled Pain: adequately controlled Airway Patency, RR, SpO2: stable & adequate BP & HR: stable & adequate Hydration State: stable & adequate Anesthetic Complications: no major complications apparent and Pt Satisfied with anesthetic care
[2019-11-10] MEDS ORDERED: LABETALOL HCL IV 5 MG/ML 20ML IV ONE (14:18)
--- NOTE | 2019-11-10 14:42 | Fluoroscopy Report ---
FL shoulder LT min 2V CLINICAL HISTORY: ORIF LT PROXIMAL HUMERUS COMPARISON STUDY: Left humerus radiograph November 09, 2019. FLUOROSCOPY TIME: 22 seconds. FLUOROSCOPIC IMAGES: 2 FINDINGS: These images demonstrate plate and screw fixation of the proximal humeral fracture. Fractur e alignment appears anatomic. The hardware is intact. IMPRESSION: Expected findings following internal fixation of the left humeral fracture. Electronically signed by: Meng Burkett M.D. 11/10/2019 2:41 PM
--- NOTE | 2019-11-10 14:44 | Fluoroscopy Report ---
FL wrist LT 2V CLINICAL HISTORY: ORIF LT WRIST COMPARISON STUDY: Left wrist radiographs November 09, 2019. FLUOROSCOPY TIME: 20.1 seconds. FLUOROSCOPIC IMAGES: 2 FINDINGS: These images demonstrate plate and screw fixation of the distal left radial fracture. Fract ure alignment has markedly improved and is near anatomic. The hardware is intact. There are no unexpe cted radiopaque foreign bodies. IMPRESSION: Expected findings following internal fixation of the distal left radial fracture. Electronically signed by: Meng Burkett M.D. 11/10/2019 2:42 PM
[2019-11-10] MEDS: GABAPENTIN 400 MG CAP PO SCH ×3 (15:03→20:13)
--- NOTE | 2019-11-10 15:03 | XRay Report ---
XR humerus LT 2V CLINICAL HISTORY: s/p ORIF L humeral shaft fracture COMPARISON: Left humerus radiographs November 09, 2019. FINDINGS: These images demonstrate plate and screw fixation of the proximal diaphyseal fracture of t he left humerus. Fracture alignment has markedly improved and appears anatomic. The hardware is intac t and there are no unexpected radiopaque foreign bodies. IMPRESSION: Expected findings following internal fixation of the proximal diaphyseal fracture of the left humerus. Electronically signed by: Meng Burkett M.D. 11/10/2019 3:02 PM
--- NOTE | 2019-11-10 15:05 | XRay Report ---
XR wrist LT min 3V routine CLINICAL HISTORY: s/p ORIF distal radius fx COMPARISON: Left wrist radiographs November 09, 2019. FINDINGS: These images demonstrate plate and screw fixation of the distal left radial fracture. Frac ture alignment has markedly improved and appears near anatomic. The hardware is intact. There are no unexpected radiopaque foreign bodies. A nondisplaced fracture through the base of the ulnar styloid i s noted. Overlying cast is noted. IMPRESSION: 1. Expected findings following internal fixation of the distal left radial fracture. 2. Nondisplaced fracture of the base of the ulnar styloid. Electronically signed by: Meng Burkett M.D. 11/10/2019 3:03 PM
[2019-11-10] MEDS: FUROSEMIDE 40 MG TAB PO SCH (15:33)
[2019-11-10] MEDS: LABETALOL HCL 100 MG TAB PO SCH ×2 (15:34→20:12)
[2019-11-10] MEDS: THIAMINE HCL 50 MG TABLET PO SCH (15:35)
[2019-11-10] MEDS: VITAMIN B COMPLEX TAB PO SCH (15:35)
[2019-11-10] MEDS: CHOLECALCIFEROL 1,000 UNITS TAB PO SCH (15:36)
[2019-11-10] MEDS: POLYETHYLENE (MIRALAX) 17 GM PACK PO PRN (18:05)
--- NOTE | 2019-11-10 19:12 | Hospitalist Progress Note ---
Date of Service November 10, 2019 Assessment & Plan (1) Left humeral fracture: S/P ORIF. Check vitamin D level. (2) Distal radius fracture, left: S/P ORIF. (3) Hypertension: Continue labetalol and lisinopril. Follow and titrate Rx. (4) Sleep apnea: Continue BiPAP. (5) Nocturnal hypoxia: Continue O2 with BiPAP. (6) Casey esophagus: Continue PPI. (7) Diabetes mellitus type 2, controlled: Managed with metformin. Hgb A1C 5.2. FBS 124. Insulin coverage as needed. (8) DVT prophylaxis: SCD's. Add anticoagulant when OK from surgical perspective. (9) Discharge planning issues: Probable discharge to home with services. PT / OT evals. Family Medicine follow-up with Dr. Facundo Dorantes. Subjective Admitted early this morning with fractures of left humerus and radius after mechanical fall. ORIF left humeral shaft fracture + ORIF left distal radius fracture performed this afternoon by Dr. Galicia. Doing well postoperatively. No chest pain, cough, SOB, nausea, vomiting. Pain well-controlled, but experienced itching after receiving oxycodone. Physical Exam Constitutional: no acute distress Respiratory: no respiratory distress Auscultation: lungs clear to auscultation bilaterally Cardiovascular: Rate/Rhythm: regular rate and regular rhythm Vessels: no JVD Extremities: no calf tenderness and no edema Gastrointestinal (Abdomen): normal bowel sounds, soft, nontender, no hepatosplenomegaly Musculoskeletal: Extremities: extremities normal to inspection (SCD's applied; LUE immobilized; good cap refill fingers) Skin: no rashes, warm and dry Psychiatric: Orientation: alert and oriented x 3 Results & Data Vital Signs (Past 12 Hours) Vital Signs Temp Pulse Pulse Pulse Resp BP Pulse Ox 11/10/19 18:00 36.9 C 87 14 124/80 97 11/10/19 16:56 36.8 C 88 20 127/80 95 11/10/19 16:34 88 11/10/19 16:30 36.7 C 84 14 122/79 95 11/10/19 16:04 36.7 C 86 14 125/80 97 11/10/19 15:28 36.4 C L 95 H 18 123/79 90 11/10/19 15:08 36.5 C 97 H 20 117/74 93 11/10/19 14:45 98 H 18 131/82 94 11/10/19 14:35 36.4 C L 94 H 18 141/88 H 94 11/10/19 14:25 99 H 18 151/81 H 91 11/10/19 14:15 100 H 18 158/86 H 95 11/10/19 14:05 102 H 18 148/104 H 94 11/10/19 13:58 36.9 C 100 H 14 148/101 H 95 11/10/19 08:00 88 11/10/19 07:27 37.1 C 91 H 18 130/76 98 (1) Left humeral fracture Encounter type: initial encounter Fracture alignment: displaced Fracture type: closed Humerus Location: proximal (2) Distal radius fracture, left Encounter type: initial encounter Fracture morphology: Colles' Fracture type: closed Qualified Code(s): S52.532A - Colles' fracture of left radius, initial encounter for closed fracture
[2019-11-10] MEDS: ATORVASTATIN 20 MG TAB PO SCH (20:13)
[2019-11-10] MEDS: DULOXETINE HCL 30 MG CAP PO SCH (20:14)
[2019-11-10] MEDS ORDERED: PANTOprazole 40 MG TAB PO SCH (21:00)
--- NOTE | 2019-11-10 21:11 | Operative Report ---
DATE OF OPERATION: 11/10/2019 PREOPERATIVE DIAGNOSES: Left humeral shaft fracture, comminuted and displaced, and displaced intraarticular left distal radius fracture. POSTOPERATIVE DIAGNOSES: Same OPERATIONS PERFORMED: 1. Open reduction internal fixation comminuted and displaced left humeral shaft fracture. 2. Open reduction internal fixation comminuted displaced intra-articular left distal radius fracture. A 22 modifier should be added to this case due to the increased complexity from the comminuted nature of these fractures, as well as increased difficulty due to her body habitus (obesity), poor bone quality, and medical comorbidities. SURGEON: Delio Galicia MD DIE MOUNTER: Dr. Clarke Mendenhall. ESTIMATED BLOOD LOSS: 200 mL. INTRAVENOUS FLUIDS: 1300 mL crystalloid. SPECIMENS: None. COMPLICATIONS: None. IMPLANTS: 1. For the humeral shaft fracture, we used a 10-hole Synthes 3.5 mm LCDC titanium plate with six 3.5 mm cortical screws and one 4.0 cancellous screw through the plate. Outside of the plate, we placed a total of four titanium lag screws, three of which were 2.7 mm screws and one which was a 2.0 mm screw. 2. For the distal radius fracture, we used a BiomStyleCaster DVR short narrow left titanium plate with three 3.5 mm cortical screws in the shaft and multiple fully threaded 2.0 mm locking screws juxta-articularly. INDICATIONS: Ms. Hale is a 64-year-old female who fell yesterday evening while at home sustaining a comminuted, displaced left humeral shaft fracture, as well as a comminuted intraarticular left distal radius fracture with displacement. She uses a cane at baseline. She has medical comorbidities of diabetes, gastroparesis and neuropathy as well as bilateral hip arthritis. She actually has a hip replacement scheduled for later this month. I had a long discussion with her about her fractures, the risks and benefits of surgical treatment, alternatives to surgery and expected outcomes. After reviewing all these, she elected to proceed with surgery. She was admitted to the hospital overnight to the internal medicine service, n.p.o. after midnight. All questions were answered. Informed consent was signed. OPERATIVE FINDINGS: The humeral shaft fracture was broken into total 4 pieces with 2 small comminuted pieces, which we were able to be lagged back to the distal fragment. We then reduced the 2 main fracture fragments to one another and placed a lag screw to hold the reduction. A 10-hole titanium plate was then used with 6 good cortices of fixation proximal and distal to the fracture. Her most proximal cancellous screw did not have a good bite secondary to her poor bone quality in the humeral head. The distal radius fracture was reduced and stabilized through a volar Luis approach using a titanium locking plate. Titanium was used for all of her implants that she has A N[employer]EL [employer]ERGY. DESCRIPTION OF THE OPERATION: The patient was identified in the preoperative holding area where her surgical sites were marked. She was given a block by anesthesia then brought back to main operating room where she was carefully moved on to the operating room table and general anesthesia was administered. All bony prominences were padded. Perioperative antibiotics were administered. She was prepped and draped in the normal sterile fashion. Prior to incision, a multidisciplinary timeout was called. All in the room were in agreement. We began with the left humeral shaft open reduction internal fixation. A 12 cm long incision was made for an anterolateral approach to the proximal humerus. We dissected down through subcutaneous tissues to the level of deltoid fascia. Small flaps were raised above the fascia. We identified the raphae between the anterior and middle one thirds of the deltoid. This was developed proximally and distally. The axillary nerve was identified along the deep deltoid fascia and was tagged with a vessel loop and protected throughout the case. We then identified the fracture site below the deltoid. Dissection was extended subperiosteally distally to elevate some of the deltoid insertion to facilitate our plate placement distally. Proximally a portion of the deltoid bursa was excised. The fracture fragments were then curetted while preserving the soft tissue attachments. There were 2 pieces of comminuted bone at the fracture site, one which was larger, approximately 1.5 x 4 cm and the second one was smaller, about 1 x 2 cm. We were able to durant the larger of these comminuted fragments into the distal fragment. After we anatomically reduced this fragment, it was clamped and then 2 lag screws were placed using 2.7 mm titanium screws. We then were able to durant in the smaller comminuted fragment and clamp it in an anatomically reduced position. Because of its size, it was only amenable to a single 2.0 mm titanium lag screw which was placed without difficulty. We now had two main proximal and distal fragments which were reduced to one another and clamped. Fluoroscopy was brought in to confirm our reduction, which we were very satisfied with. We then placed a single 2.7 mm titanium lag screw to maintain the reduction. This was done without difficulty. The clamp was removed. We then brought the 10-hole titanium plate up into the surgical field. Our goal was to bridge the areas of comminution which we were able to achieve with 3 holes distal to the fracture and 4 holes proximal to the fracture. The plate was contoured using plate benders. The position of the plate was carefully adjusted using fluoroscopy so that we had the 4 holes proximal to the area of comminution and 3 holes distal. We then placed 2 screws both proximal and 2 screws distal to the fracture. Fluoroscopy was brought in, which confirmed good placement of the screws, although we did not have a good bite in our most proximal screw. We then placed another 3.5 mm cortical screw distally and 2 more 3.5 mm cortical screws proximally so we had 6 good cortices of fixation on both sides of the fracture. I then changed out the cancellous screw into the most proximal hole in the plate to see if we can get a better bite. We redirected our drill guide, which could be pushed through the bone towards the center of the humeral head to maximize her length. We did place a 40 mm long 4.0 cancellous screw which also did not have a great bite, but we kept it because it added rotational stability. This was a nonlocking plate so a locking screw was not an option. We did not have a titanium locking plate availabe, and I wanted to use all titanium because she has A N[employer]EL ALLERGY. At this point, fluoroscopy was again used to confirm our screw lengths and our reduction. We completely stabilize the fracture, which we were happy with. We then irrigated out the fracture site with normal saline. The vessel loop around the axillary nerve was removed and we confirmed that there had been no damage to the axillary nerve. We then closed the superficial deltoid fascia using interrupted 0 Vicryl sutures in [id number] fashion. The deep dermis was run with 3-0 Vicryl. Zipline was used for the skin. A sterile dressing was placed of 4 x 4s and Tegaderm. We then moved on to the distal radius fracture fixation. A volar Luis approach was marked out for a total length of approximately 8 cm starting at the distal wrist crease and moving proximally. We dissected down through subcutaneous tissues to the level of the FCR tendon sheath. This was incised and the FCR tendon was retracted ulnarly. The floor of the FCR sheath was incised and the FDS and FDP muscles and tendons were retracted ulnarly to expose the underlying pronator quadratus. The pronator quadratus was then subperiosteally elevated from radial to ulnar to expose the metaphysis of the distal radius. Fracture was then reduced and inspected visually. We had an excellent reduction. It was a fairly stable and therefore we brought up the 3-hole narrow Biomet DVR plate for the left wrist and fixated this using 2 K-wires, 1 proximally and 1 distally. We checked the position of our plate under fluoroscopy. The plate was a little bit distal and we therefore placed a single 3.5 mm screw through the oblong hole of the plate, which was well centered on the radius and then removed the K-wires so we could translate the plate proximally a few millimeters and then repinned the plate in position. Fluoroscopy was brought back in and we were now very happy with the position of our plate as well as our reduction. We therefore placed all of our distal locking screws which were fully threaded. These were drilled in a bicortical fashion, measured and screws were placed that were 2 mm less than the measured length, so as to not have any prominent screw heads that could irritate her extensor tendons. Once all of our distal screws were placed, we checked under fluoroscopy, which we are again very happy with in terms of our reduction and screw lengths. We then placed 2 more 3.5 mm cortical screws proximally in bicortical fashion. Final fluoroscopic images were obtained. The wound was irrigated with copious amounts of normal saline. The deep dermis was closed using a running 3-0 Vicryl. A ZipLine was used for the skin as well as Steri-Strips. She was then placed into a volar plaster slab splint with the wrist held in neutral. She was awoken from anesthesia and transferred to recovery room in stable condition. POSTOPERATIVE COURSE: The patient will be readmitted to the hospital after surgery. She will be nonweightbearing on her left upper extremity. She will be allowed to do a finger and hand range of motion but no wrist range of motion because of the splint. The splint will remain in place for 2 weeks. She will follow up in my clinic in 2 weeks for splint and suture removal as well as x-rays out of the splint. She will need to delay her total hip replacement for at least 3 months before it is safe for her to weightbear through this arm using a walker, as her diabetes puts her at risk for delayed healing. Postoperative x-rays are pending in the PACU. I attest to the content of the Intraoperative Record and any orders documented therein. Any exceptions are noted below. JOLEEN
[2019-11-11] MEDS: ACETAMINOPHEN 500 MG TAB PO PRN ×4 (00:57→19:29)
[2019-11-11] MEDS: HYDROmorphone INJ 1 MG/ML SYRINGE IV PRN ×2 (00:58→04:57)
[2019-11-11] MEDS: SODIUM CHLORIDE 0.9% 1000ML 1,000 ML IV SCH (07:37)
[2019-11-11] MEDS: SODIUM CHLORIDE 0.9% 500 ML IV SCH (07:37)
[2019-11-11] MEDS: INSULIN ASPART 100 UNITS/ML 3 ML PEN SC SCH (07:38)
[2019-11-11] MEDS: FUROSEMIDE 40 MG TAB PO SCH (07:52)
[2019-11-11] MEDS: GABAPENTIN 400 MG CAP PO SCH ×3 (07:52→20:35)
[2019-11-11] MEDS: THIAMINE HCL 50 MG TABLET PO SCH (07:53)
[2019-11-11] MEDS: CHOLECALCIFEROL 1,000 UNITS TAB PO SCH (07:53)
[2019-11-11] MEDS: LABETALOL HCL 100 MG TAB PO SCH ×2 (07:53→20:35)
[2019-11-11] MEDS: VITAMIN B COMPLEX TAB PO SCH (07:53)
--- NOTE | 2019-11-11 07:56 | Anesthesiology Progress Note ---
Date of Service November 11, 2019 Anesthesia Post Procedure Vital Signs Vital Signs: Temp Pulse Pulse Resp BP Pulse Ox 11/11/19 07:22 76 11/11/19 04:55 36.8 C 75 18 110/69 95 11/11/19 00:22 80 11/10/19 22:34 36.8 C 78 18 122/80 97 11/10/19 18:00 36.9 C 87 14 124/80 97 11/10/19 16:56 36.8 C 88 20 127/80 95 11/10/19 16:34 88 11/10/19 16:30 36.7 C 84 14 122/79 95 11/10/19 16:04 36.7 C 86 14 125/80 97 11/10/19 15:28 36.4 C L 95 H 18 123/79 90 11/10/19 15:08 36.5 C 97 H 20 117/74 93 11/10/19 14:45 98 H 18 131/82 94 11/10/19 14:35 36.4 C L 94 H 18 141/88 H 94 11/10/19 14:25 99 H 18 151/81 H 91 11/10/19 14:15 100 H 18 158/86 H 95 11/10/19 14:05 102 H 18 148/104 H 94 11/10/19 13:58 36.9 C 100 H 14 148/101 H 95 11/10/19 08:00 88 Pain Intensity Left Arm: Pain Intensity: 8 Notes Mental Status: alert / awake / arousable Patient Amnestic to Procedure: Yes Nausea / Vomiting: adequately controlled Pain: improving with treatment Airway Patency, RR, SpO2: stable & adequate BP & HR: stable & adequate Hydration State: stable & adequate Anesthetic Complications: no major complications apparent and Pt Satisfied with anesthetic care Notes: pt states she still is having some areas of numbness from block;
[2019-11-11 08:18] LABS: Hematocrit (blood only) 32.9 % (37-47); Hemoglobin 10.3 g/dL (12.0-16.0); Mean Corpuscular Hemoglobin 31.3 pg (25-34); Mean Corpuscular Hgb Conc 31.3 g/dL (32-36); Mean Platelet Volume 10.3 fL (7.4-10.4); Platelet Count 171 K/uL (130-400); RDW Coefficient of Variation 13.6 % (11.5-14.5); RDW Standard Deviation 49.5 fL (36.4-46.3); Red Blood Count 3.29 M/uL (4.2-5.4); White Blood Count 8.15 K/uL (4.8-10.8)
[2019-11-11 08:47] LABS: BUN Creatinine Ratio 23.7 (10-20); Creatinine Clr Calc Pharmacy 129.3 ml/min; Potassium 4.3 mmol/L (3.5-5.1)
[2019-11-11] MEDS: HYDROmorphone HCL 2 MG TAB PO PRN ×3 (09:27→23:10)
[2019-11-11] MEDS: ENOXAPARIN INJ 40 MG/0.4 ML SYR SQ SCH (09:45)
--- NOTE | 2019-11-11 10:00 | Orthopedic Progress Note ---
Date of Service November 11, 2019 Assessment & Plan (1) Left humeral fracture: Lovenox 40 mg s/c once a day for DVT prophylaxis from today. Elevation Active fingers, elbow and shoulder ROM as demonstrated Splint to continue for 2 weeks Case management for planning discharge (2) Distal radius fracture, left: Subjective S/P ORIF left humerus and left distal radius fractures by plating Day 1 post op Pain under control Nerve block is waning off except for residual numbness along thumb nad index fingers Intact circulation Has active finger, elbow and shoulder movt No fevers/chills/nausea/chest pain/SOB Results & Data Vital Signs (Past 12 Hours) Vital Signs Temp Pulse Pulse Resp BP Pulse Ox 11/11/19 09:40 95/59 L 11/11/19 08:44 36.7 C 76 18 99/61 L 91 11/11/19 07:22 76 11/11/19 04:55 36.8 C 75 18 110/69 95 11/11/19 00:22 80 11/10/19 22:34 36.8 C 78 18 122/80 97 (1) Left humeral fracture Encounter type: initial encounter Fracture alignment: displaced Fracture morphology: other fracture Fracture type: closed Humerus Location: proximal Qualified Code(s): S42.292A - Other displaced fracture of upper end of left humerus, initial encounter for closed fracture (2) Distal radius fracture, left Encounter type: initial encounter Fracture morphology: Colles' Fracture type: closed Qualified Code(s): S52.532A - Colles' fracture of left radius, initial encounter for closed fracture
--- NOTE | 2019-11-11 14:02 | Hospitalist Progress Note ---
Date of Service November 11, 2019 Assessment & Plan (1) Left humeral fracture: S/P ORIF. Ortho recommendations: elevation active fingers, elbow and shoulder ROM splint to be continued for 2 wks Supplemental calcium. Vitamin D level = 15- increase replacement to 2000 units daily. Outpatient bone density determination when possible. (2) Distal radius fracture, left: S/P ORIF. (3) Hypertension: Continue labetalol and lisinopril. Follow and titrate Rx. (4) Sleep apnea: Continue BiPAP. (5) Nocturnal hypoxia: Continue O2 with BiPAP. Pt will use home equipment. (6) Casey esophagus: Continue PPI. (7) Diabetes mellitus type 2, controlled: Managed with metformin. Hgb A1C 5.2. FBS 100. Insulin coverage as needed. (8) DVT prophylaxis: SCD's. OK to start enoxaparin per Ortho. (9) Discharge planning issues: To be determined- may need rehab or skilled care. PT / OT evals. Family Medicine follow-up with Dr. Facundo Dorantes. Subjective Recheck for LUE fractures and other problems. Patient seen in their room around 1110. Niece visiting. Having some postop pain- hydromorphone helps. Experiencing itching from analgesics- problem with multiple agents. Review of Systems: Constitutional- no fever. Cardiac- no chest pain. Pulmonary- no cough or SOB. GI- passing flatus, but no stool; no nausea, vomiting - no urinary symptoms. Otherwise, as noted above. Physical Exam Constitutional: no acute distress Respiratory: no respiratory distress Auscultation: lungs clear to auscultation bilaterally Cardiovascular: Rate/Rhythm: regular rate and regular rhythm Vessels: no JVD Extremities: no calf tenderness and no edema Gastrointestinal (Abdomen): normal bowel sounds, soft, nontender, no hepatosplenomegaly Musculoskeletal: Extremities: extremities normal to inspection (SCD's applied; LUE immobilized; good cap refill fingers) Skin: no rashes, warm and dry Psychiatric: Orientation: alert and oriented x 3 Results & Data Vital Signs (Past 12 Hours) Vital Signs Temp Pulse Pulse Resp BP Pulse Ox 11/11/19 12:39 106/66 11/11/19 11:24 36.8 C 75 18 86/54 L 92 11/11/19 09:40 95/59 L 11/11/19 08:44 36.7 C 76 18 99/61 L 91 11/11/19 07:22 76 11/11/19 04:55 36.8 C 75 18 110/69 95 Laboratory Results 11/11/19 08:05 11/11/19 08:05 (1) Left humeral fracture Encounter type: initial encounter Fracture alignment: displaced Fracture morphology: other fracture Fracture type: closed Humerus Location: proximal Qualified Code(s): S42.292A - Other displaced fracture of upper end of left humerus, initial encounter for closed fracture (2) Distal radius fracture, left Encounter type: initial encounter Fracture morphology: Colles' Fracture type: closed Qualified Code(s): S52.532A - Colles' fracture of left radius, initial encounter for closed fracture
[2019-11-11] MEDS: POLYETHYLENE (MIRALAX) 17 GM PACK PO PRN (19:31)
[2019-11-11] MEDS: DULOXETINE HCL 30 MG CAP PO SCH (20:36)
[2019-11-11] MEDS: ATORVASTATIN 20 MG TAB PO SCH (20:37)
[2019-11-12] MEDS: HYDROmorphone INJ 1 MG/ML SYRINGE IV PRN (03:24)
[2019-11-12] MEDS: HYDROmorphone HCL 2 MG TAB PO PRN ×2 (08:20→16:22)
[2019-11-12] MEDS: LABETALOL HCL 100 MG TAB PO SCH ×2 (08:26→20:32)
[2019-11-12] MEDS: GABAPENTIN 400 MG CAP PO SCH ×3 (08:26→20:31)
[2019-11-12] MEDS: ENOXAPARIN INJ 40 MG/0.4 ML SYR SQ SCH (08:26)
[2019-11-12] MEDS: THIAMINE HCL 50 MG TABLET PO SCH (08:26)
[2019-11-12] MEDS: VITAMIN B COMPLEX TAB PO SCH (08:26)
[2019-11-12] MEDS: FUROSEMIDE 40 MG TAB PO SCH (08:26)
[2019-11-12] MEDS: CHOLECALCIFEROL 1,000 UNITS TAB PO SCH (08:27)
[2019-11-12] MEDS: lisinopriL 5 MG TAB PO SCH (11:41)
[2019-11-12] MEDS: ACETAMINOPHEN 500 MG TAB PO PRN ×2 (11:42→18:07)
--- NOTE | 2019-11-12 11:46 | Orthopedic Progress Note ---
Date of Service November 12, 2019 Assessment & Plan (1) Left humeral fracture: Lovenox 40 mg s/c once a day for DVT prophylaxis for 3 weeks. Elevate L hand and wrist on pillows NWB LUE Active fingers ROM as demonstrated Splint to continue for 2 weeks Case management for planning discharge OK to discharge from orthopaedic standpoint when appropriate medically and facility available (2) Distal radius fracture, left: Supervising Physician Co-Signing Physician Notes I saw and examined the patient. Agree with above note. Subjective Day 2 post op Post op pain - well controlled Seen walking in the corridor No chest pain/ SOB/ Fever/ Chills Physical Exam Physical Exam: Left Upper extremity: Dressing over left arm - intact; no soakage Left below elbow volar splint in-situ Intact circulation Active fingers movt - present Minimal numbness- dorsal aspect of left thumb Motor: Radial/ Ulnar/Medial - Intact Results & Data Vital Signs (Past 12 Hours) Vital Signs Temp Pulse Pulse Resp BP Pulse Ox 11/12/19 11:34 36.7 C 77 18 123/79 93 11/12/19 08:00 73 11/12/19 07:15 36.2 C L 74 18 159/96 H 96 11/12/19 03:43 36.8 C 68 18 120/73 100 11/11/19 23:59 78 (1) Left humeral fracture Encounter type: initial encounter Fracture alignment: displaced Fracture morphology: other fracture Fracture type: closed Humerus Location: proximal Qualified Code(s): S42.292A - Other displaced fracture of upper end of left humerus, initial encounter for closed fracture (2) Distal radius fracture, left Encounter type: initial encounter Fracture morphology: Colles' Fracture type: closed Qualified Code(s): S52.532A - Colles' fracture of left radius, initial encounter for closed fracture
[2019-11-12] MEDS: CELECOXIB 100 MG CAP PO SCH (16:22)
--- NOTE | 2019-11-12 17:11 | Hospitalist Progress Note ---
Date of Service November 12, 2019 Assessment & Plan (1) Left humeral fracture: S/P ORIF. POD # 2. Ortho recommendations: elevation active fingers, elbow and shoulder ROM splint to be continued for 2 wks (2) Distal radius fracture, left: S/P ORIF. (3) Osteoporosis: Supplemental calcium once constipation resolved. Vitamin D level = 15. Vitamin D 50,000 units weekly x 8 weeks, then 2000 units daily. Outpatient bone density determination when possible. (4) Hypertension: Continue labetalol and lisinopril. Follow and titrate Rx. (5) Sleep apnea: Continue BiPAP. (6) Nocturnal hypoxia: Continue O2 with BiPAP. Pt will use home equipment. (7) Casey esophagus: Continue PPI. (8) Diabetes mellitus type 2, controlled: Managed with metformin. Hgb A1C 5.2. Hold metformin during hospital stay. FBS 100 on 11/11. Insulin coverage as needed. (9) DVT prophylaxis: SCD's. OK to start enoxaparin per Ortho. (10) Discharge planning issues: To be determined- may need rehab or skilled care. PT / OT evals. Family Medicine follow-up with Dr. Facundo Dorantes. Subjective Recheck for LUE fractures and other problems. Patient seen in their room around 1050. Lest postop pain- hydromorphone helps. Constipated. Review of Systems: Constitutional- no fever. Cardiac- no chest pain. Pulmonary- no cough or SOB. GI- passing flatus, but no stool; no nausea, vomiting - no urinary symptoms. Otherwise, as noted above. Physical Exam Constitutional: no acute distress Respiratory: no respiratory distress Auscultation: lungs clear to auscultation bilaterally Cardiovascular: Rate/Rhythm: regular rate and regular rhythm Vessels: no JVD Extremities: no calf tenderness and no edema Gastrointestinal (Abdomen): normal bowel sounds, soft, nontender, no hepatosplenomegaly Musculoskeletal: Extremities: extremities normal to inspection (SCD's applied; LUE immobilized; good cap refill fingers) Skin: no rashes, warm and dry Psychiatric: Orientation: alert and oriented x 3 Results & Data Vital Signs (Past 12 Hours) Vital Signs Temp Pulse Pulse Resp BP Pulse Ox 11/12/19 15:01 36.9 C 76 20 130/83 95 11/12/19 11:34 36.7 C 77 18 123/79 93 11/12/19 08:00 73 11/12/19 07:15 36.2 C L 74 18 159/96 H 96 (1) Left humeral fracture Encounter type: initial encounter Fracture alignment: displaced Fracture morphology: other fracture Fracture type: closed Humerus Location: proximal Qualified Code(s): S42.292A - Other displaced fracture of upper end of left humerus, initial encounter for closed fracture (2) Distal radius fracture, left Encounter type: initial encounter Fracture morphology: Colles' Fracture type: closed Qualified Code(s): S52.532A - Colles' fracture of left radius, initial encounter for closed fracture
[2019-11-12] MEDS: POLYETHYLENE (MIRALAX) 17 GM PACK PO SCH (20:30)
[2019-11-12] MEDS: ATORVASTATIN 20 MG TAB PO SCH (20:31)
[2019-11-12] MEDS: DULOXETINE HCL 30 MG CAP PO SCH (20:31)
[2019-11-12] MEDS: PANTOprazole 40 MG TAB PO SCH (20:33)
[2019-11-13] MEDS: HYDROmorphone HCL 2 MG TAB PO PRN ×4 (00:20→21:05)
[2019-11-13] MEDS: FUROSEMIDE 40 MG TAB PO SCH (08:05)
[2019-11-13] MEDS: CELECOXIB 100 MG CAP PO SCH ×2 (08:05→17:14)
[2019-11-13] MEDS: ENOXAPARIN INJ 40 MG/0.4 ML SYR SQ SCH (08:06)
[2019-11-13] MEDS: POLYETHYLENE (MIRALAX) 17 GM PACK PO SCH ×2 (08:06→21:05)
[2019-11-13] MEDS: LABETALOL HCL 100 MG TAB PO SCH ×2 (08:06→21:05)
[2019-11-13] MEDS: GABAPENTIN 400 MG CAP PO SCH ×3 (08:06→21:06)
[2019-11-13] MEDS: VITAMIN B COMPLEX TAB PO SCH (08:07)
[2019-11-13] MEDS: THIAMINE HCL 50 MG TABLET PO SCH (08:07)
[2019-11-13] MEDS: lisinopriL 5 MG TAB PO SCH (08:07)
--- NOTE | 2019-11-13 08:56 | Orthopedic Progress Note ---
Date of Service November 13, 2019 Assessment & Plan (1) Left humeral fracture: Lovenox 40 mg s/c once a day for DVT prophylaxis for 3 weeks. Elevate L hand and wrist on pillows NWB LUE Active fingers ROM as demonstrated Splint to continue for 2 weeks Case management, PT and OT all recommend rehab or SNF due to functional limitations OK to discharge from orthopaedic standpoint when appropriate medically and facility available (2) Distal radius fracture, left: Subjective This 64 yo F is day 3 s/p ORIF of Left distal radius and proximal humerus fractures after falling down stairs. At present patient is resting comfortably in bed with left arm in splint/sling. Pain controlled with PO meds. Patient denies CP, SOB, nausea, vomiting, fever, chills, sweats, lethargy or numbness. She states that her finger swelling is much better than yesterday. Review of Systems Review of Systems: All systems reviewed & are unremarkable except as noted in HPI & below Physical Exam Physical Exam: Left Upper Extremity: dressing and splint intact, clean and dry. Appropriate dexterity of digits. Able to actively flex/extend at elbow. Cap refill < 2 seconds. NV intact. TTP over proximal humerus. Ecchymosis and edema to anterior and posterior shoulder region. Results & Data Vital Signs (Past 12 Hours) Vital Signs Temp Pulse Pulse Resp BP Pulse Ox 11/13/19 07:24 36.9 C 73 18 137/89 100 11/12/19 23:30 36.6 C 74 18 130/77 97 Laboratory Results 11/13/19 Range/Units 06:31 Vitamin B12 337 (211-911) pg/ml (1) Left humeral fracture Encounter type: initial encounter Fracture alignment: displaced Fracture morphology: other fracture Fracture type: closed Humerus Location: proximal Qualified Code(s): S42.292A - Other displaced fracture of upper end of left humerus, initial encounter for closed fracture (2) Distal radius fracture, left Encounter type: initial encounter Fracture morphology: Colles' Fracture type: closed Qualified Code(s): S52.532A - Colles' fracture of left radius, initial encounter for closed fracture
[2019-11-13] MEDS ORDERED: CHOLECALCIFEROL 1,000 UNITS TAB PO SCH (09:00)
[2019-11-13] MEDS ORDERED: ERGOCALCIFEROL 50,000 UNITS CAP PO SCH (09:00)
[2019-11-13] MEDS: ACETAMINOPHEN 500 MG TAB PO PRN (17:15)
--- NOTE | 2019-11-13 19:43 | Hospitalist Progress Note ---
Date of Service November 13, 2019 Assessment & Plan (1) Left humeral fracture: S/P ORIF. POD # 3. Ortho recommendations: elevation active fingers, elbow and shoulder ROM splint to be continued for 2 wks (2) Distal radius fracture, left: S/P ORIF. (3) Osteoporosis: Supplemental calcium once constipation resolved. Vitamin D level = 15. Vitamin D 50,000 units weekly x 8 weeks, then 2000 units daily. Outpatient bone density determination when possible. (4) Hypertension: Continue labetalol and lisinopril. Follow and titrate Rx. (5) Sleep apnea: Continue BiPAP. (6) Nocturnal hypoxia: Continue O2 with BiPAP. Pt will use home equipment. (7) Casey esophagus: Continue PPI. (8) Diabetes mellitus type 2, controlled: Managed with metformin. Hgb A1C 5.2. Hold metformin during hospital stay. FBS 100 on 11/11. Insulin coverage as needed. (9) DVT prophylaxis: SQ enoxaparin. Ambulate. (10) Discharge planning issues: PT recommended inpatient rehab. OT recommends inpatient rehab. Case Management consulted. Family Medicine follow-up with Dr. Facundo Dorantes. Subjective Recheck for LUE fractures and other problems. Patient seen in their room around 1900. Postop pain improved. Still constipated. No new problems. Review of Systems: Constitutional- no fever. Cardiac- no chest pain. Pulmonary- no cough or SOB. GI- passing flatus, but no stool; no nausea, vomiting - no urinary symptoms. Otherwise, as noted above. Physical Exam Constitutional: no acute distress Respiratory: no respiratory distress Auscultation: lungs clear to auscultation bilaterally Cardiovascular: Rate/Rhythm: regular rate and regular rhythm Vessels: no JVD Extremities: no calf tenderness and no edema Gastrointestinal (Abdomen): normal bowel sounds, soft, nontender, no hepatosplenomegaly Musculoskeletal: Extremities: extremities normal to inspection (LUE immobilized; good cap refill fingers) Skin: no rashes, warm and dry Psychiatric: Orientation: alert and oriented x 3 Results & Data Vital Signs (Past 12 Hours) Vital Signs Temp Pulse Resp BP Pulse Ox 11/13/19 15:04 36.5 C 71 18 114/73 93 (1) Left humeral fracture Encounter type: initial encounter Fracture alignment: displaced Fracture morphology: other fracture Fracture type: closed Humerus Location: proximal Qualified Code(s): S42.292A - Other displaced fracture of upper end of left humerus, initial encounter for closed fracture (2) Distal radius fracture, left Encounter type: initial encounter Fracture morphology: Colles' Fracture type: closed Qualified Code(s): S52.532A - Colles' fracture of left radius, initial encounter for closed fracture
[2019-11-13] MEDS: PANTOprazole 40 MG TAB PO SCH (21:06)
[2019-11-13] MEDS: DULOXETINE HCL 30 MG CAP PO SCH (21:06)
[2019-11-13] MEDS: ATORVASTATIN 20 MG TAB PO SCH (21:06)
[2019-11-14] MEDS: ACETAMINOPHEN 500 MG TAB PO PRN (00:01)
[2019-11-14] MEDS: HYDROmorphone HCL 2 MG TAB PO PRN ×2 (04:49→14:12)
[2019-11-14 06:28] LABS: Est GFR (African American) 120.1; Est GFR (Non-African American) 103.7
[2019-11-14] MEDS: CELECOXIB 100 MG CAP PO SCH (08:21)
[2019-11-14] MEDS: ENOXAPARIN INJ 40 MG/0.4 ML SYR SQ SCH (08:21)
[2019-11-14] MEDS: GABAPENTIN 400 MG CAP PO SCH ×2 (08:22→14:12)
[2019-11-14] MEDS: POLYETHYLENE (MIRALAX) 17 GM PACK PO SCH (08:22)
[2019-11-14] MEDS: LABETALOL HCL 100 MG TAB PO SCH (08:22)
[2019-11-14] MEDS: THIAMINE HCL 50 MG TABLET PO SCH (08:22)
[2019-11-14] MEDS: VITAMIN B COMPLEX TAB PO SCH (08:22)
[2019-11-14] MEDS: lisinopriL 5 MG TAB PO SCH (08:22)
[2019-11-14] MEDS ORDERED: FUROSEMIDE 20 MG TAB PO SCH (09:00)
--- NOTE | 2019-11-14 14:28 | Hospitalist Progress Note ---
Date of Service November 14, 2019 Assessment & Plan (1) Left humeral fracture: S/P ORIF. POD # 4. Ortho recommendations: elevation active fingers, elbow and shoulder ROM splint to be continued for 2 wks (2) Distal radius fracture, left: S/P ORIF. (3) Osteoporosis: Supplemental calcium once constipation resolved. Vitamin D level = 15. Vitamin D 50,000 units weekly x 8 weeks, then 2000 units daily. Outpatient bone density determination when possible. (4) Hypertension: Continue labetalol and lisinopril. Follow and titrate Rx. (5) Sleep apnea: Continue BiPAP. (6) Nocturnal hypoxia: Continue O2 with BiPAP. Pt will use home equipment. (7) Casey esophagus: Continue PPI. (8) Diabetes mellitus type 2, controlled: Managed with metformin. Hgb A1C 5.2. Hold metformin during hospital stay. FBS 100 on 11/11. Insulin coverage as needed. (9) DVT prophylaxis: SQ enoxaparin. Ambulate. (10) Discharge planning issues: PT initially recommended inpatient rehab, but now home PT/OT. OT initially recommended inpatient rehab, but now home PT/OT. Family Medicine follow-up with Dr. Facundo Dorantes. Ortho follow-up with Dr. Galicia. Subjective Recheck for LUE fractures and other problems. Patient seen in their room around 1200. Postop pain improved, but still requiring analgesics. 3 bowel movements today. No new problems. Review of Systems: Constitutional- no fever. Cardiac- no chest pain. Pulmonary- no cough or SOB. GI- passing flatus and stool; no nausea, vomiting - no urinary symptoms. Otherwise, as noted above. Physical Exam Constitutional: no acute distress Respiratory: no respiratory distress Auscultation: lungs clear to auscultation bilaterally Cardiovascular: Rate/Rhythm: regular rate and regular rhythm Vessels: no JVD Extremities: no calf tenderness and no edema Gastrointestinal (Abdomen): normal bowel sounds, soft, nontender, no hepatosplenomegaly Musculoskeletal: Extremities: extremities normal to inspection (LUE immobilized; good cap refill fingers) Skin: no rashes, warm and dry Psychiatric: Orientation: alert and oriented x 3 Results & Data Vital Signs (Past 12 Hours) Vital Signs Temp Pulse Resp BP Pulse Ox 11/14/19 08:00 36.6 C 68 20 148/72 H 96 (1) Left humeral fracture Encounter type: initial encounter Fracture alignment: displaced Fracture mo rphology: other fracture Fracture type: closed Humerus Location: proximal Qualified Code(s): S42.292A - Other displaced fracture of upper end of left humerus, initial encounter for closed fracture (2) Distal radius fracture, left Encounter type: initial encounter Fracture morphology: Colles' Fracture type: closed Qualified Code(s): S52.532A - Colles' fracture of left radius, initial encounter for closed fracture
--- NOTE | 2019-11-14 14:35 | Hospitalist Progress Note ---
Date of Service November 14, 2019 Results & Data Vital Signs (Past 12 Hours) Vital Signs Temp Pulse Resp BP Pulse Ox 11/14/19 08:00 36.6 C 68 20 148/72 H 96
--- NOTE | 2019-11-14 15:16 | Discharge Summary ---
Date of Service Date of Admission: 11/10/19 Date of Discharge: 11/14/19 Admission HPI Per Admitting Provider This is a 64-year-old female with past medical history significant for type 2 diabetes, MTHFR mutation, history of pulmonary embolism in 2002, hyperlipidemia, sleep apnea on BiPAP with 4 liters oxygen, hypertension, gastroparesis, displacement of lumbar intervertebral disc without myelopathy, history of actinic keratosis, migraine, depression. The patient presents with mechanical fall. The patient says she took her trash can and she put on the lift at the basement stair, thinking about to dispose in the garbage can tomorrow, but the trash started to roll down the stairs and she tried to catch it and in the process she fell down the stairs of the basement and she laid down and she had significant pain in the left shoulder and left upper extremity. No loss of consciousness. Did not hit her head. EMS was called and she was brought in here. Imaging studies show mildly comminuted and significantly displaced proximal metadiaphyseal left humerus fracture and also significantly displaced, impacted angulated distal radial metaphyseal fracture, likely Colles fracture. Ortho was consulted by the ER and they tried to reduce the fracture in the ER, but apparently decided to go to OR in the morning and we are called for admission. The patient has complains of significant pain in the injury site and requesting pain medications. Otherwise, hemodynamics are stable. Denies any chest pain, no shortness of breath, no cough, no nausea, no vomiting, no fever or chills, no headache, no dizziness, no blurred visions, no earache, no runny nose, no sore throat. Appetite is okay. Sleeps okay. No recent weight gain or weight loss. She says she always sweats in the night. No abdominal pain. Normal bowel and bladder movements. No blood in the stools, no black stools, no hematuria, no burning micturition, no swelling in the legs, no rash. She lives with her partner. She has right rotator cuff problem and also right hip problem, and because of that she ambulates with a cane, but she says she ambulates fine with cane and she can climb steps without any problem. She was supposed to get surgery of her right hip at the end of this month. Sys she drinks four glasses of wine every day and takes medical marijuana for her pains but not every day. Denies any withdrawal symptoms if does not take wine. Principal Diagnosis fracture left proximal humerus fracture left distal radius osteoporosis Discharge Data Allergies Allergy/AdvReac Type Severity Reaction Status Date / Time hydrocodone Allergy Intermediate ITCHING Verified 11/09/19 21:26 AND VOMITING nickel Allergy Intermediate SWELLING Verified 11/09/19 21:26 AND ITCHING adhesive Allergy Unknown WELTS WITH Verified 11/09/19 21:26 TAPE-PAPER TAPE OKAY codeine Allergy Unknown ITCHING Verified 11/09/19 21:26 AND VOMITING erythromycin base Allergy Unknown METAL Verified 11/09/19 21:26 TASTE IN MOUTH, VOMITING tramadol Allergy Unknown ITCHING Verified 11/09/19 21:26 oxycodone AdvReac Mild ITCH, N&V Verified 11/09/19 21:26 morphine AdvReac Unknown ITCHING, Verified 11/09/19 21:26 VOMITING Penicillins AdvReac Unknown HEART Verified 11/09/19 21:26 RACING Consultations 11/10/19 00:15 ED Decision to Admit Stat 11/10/19 01:37 Consult Case Management - Discharge Planning Routine 11/10/19 07:00 Consult Orthopedic Surgery Routine Procedures Performed Operation Date: 11/10/19 07:30 Actual Procedures p Open Reduction Internal Fixation Radius and Humerus Fracture(Left) - Delio Galicia MD Ordered Studies 11/10/19 07:00 FL fluoroscopy <1hr Routine FL shoulder LT min 2V Routine FL wrist LT 2V Routine 11/10/19 07:50 US - OR guided needle placemen Routine Hospital Course (1) Left humeral fracture: Mechanical fall at home with left arm pain. X-rays showed fractures of left proximal humerus and left distal radius. ORIF of both fractures performed by Dr. Galicia on 11/10/19. Did well postop. Ortho recommendations: elevation active fingers, elbow and shoulder ROM splint to be continued for 2 wks Management of osteoporosis as discussed below. (2) Distal radius fracture, left: S/P ORIF. (3) Osteoporosis: Supplemental calcium once constipation resolved. Vitamin D level = 15. Vitamin D 50,000 units weekly x 8 weeks, then 2000 units daily. Outpatient bone density determination when possible. (4) Hypertension: Continue labetalol and lisinopril. Follow and titrate Rx. (5) Sleep apnea: Continue BiPAP. (6) Nocturnal hypoxia: Continue O2 with BiPAP. (7) Casey esophagus: Continue PPI. (8) Diabetes mellitus type 2, controlled: Managed with metformin. Hgb A1C 5.2. Held metformin during hospital stay. FBS 100 on 11/11. (9) DVT prophylaxis: SQ enoxaparin for total of 3 weeks. Ambulate. (10) Discharge planning issues: PT initially recommended inpatient rehab, but now home PT/OT. OT initially recommended inpatient rehab, but now home PT/OT. Family Medicine follow-up with Dr. Facundo Dorantes. Ortho follow-up with Dr. Galicia. Total Time Total Time Spent Total Time Spent (In Minutes): 45 Discharge Plan Discharge Items Patient Disposition: Home - Home Health Services Reason For Visit: fractures of left upper arm and left wrist Discharge Diagnosis: fractures of left upper arm and left wrist Condition on Discharge: Good Activity: As commented below Activity Comment: As instructed by Orthopedics, PT, and OT. Lifting: None Lifting Comment: no lifting with left arm Non-emergency contact: Primary Care Provider, Hospitalist and Surgeon Call non-emergency contact if: you have any medication questions, your symptoms worsen and your temperature is above 101 Follow-up/Referrals: Facundo Dorantes DO [Primary Care Provider] - (11/19/2019 11:10 AM Facundo Dorantes DO ) Delio Galicia MD [Physician] - (as scheduled) Diet: Carb Consistent or DM2 and Heart Healthy Addtl Attending Provider Instructions: MEDICATION CHANGES: Continue diclofenac (Voltaren) twice a day with food as needed for pain. Take acetaminophen (Extra Strength Tylenol) 2 pills (1000 mg) 3 times a day. As needed for moderate pain. Take hydromorphone (Dilaudid) 2 mg twice a day. As needed for severe pain. Reduce furosemide (Lasix) to 20 mg daily. Take cholecalciferol (Vitamin D) 50,000 units weekly for 7 more weeks. then 2000 mg daily. Get plenty of calcium in your diet. Take calcium carbonate supplements like Oscal 600 mg twice a day. (wait until constipation is better). Things to try for constipation: lots of fiber in diet Miralax up to twice a day magnesium citrate (occasionally) Milk of Magnesia Senokot-S once or twice a day SUMMARY OF TEST RESULTS: X-rays of left arm should fractures of the humerus and radius. Vitamin D level was 15 (too low). RECOMMENDATIONS FOR FOLLOW-UP: Please discuss bone health with Dr. Dorantes. Consider getting bone density measurement. OTHER INSTRUCTIONS: Seek medical attention if you have: * temperature above 101 * chest pain or trouble breathing * abdominal pain, nausea, vomiting * diarrhea, dark stools or bloody stools * any unanswered questions or concerns Call 911 if symptoms are severe. Please take good care of yourself. Call if you have any questions or problems. You can reach a [facility] hospitalist on duty at [facility] 24 hours a day by calling [phone]. My cell # is [phone]. Pending Studies at Discharge: No Stand-Alone Forms: My [facility], Smoking Cessation Medications and DC Order Prescriptions: New cholecalciferol (vitamin D3) 50,000 unit capsule 50,000 units PO WK Qty: 7 RF: 0 acetaminophen 500 mg tablet 1,000 mg PO Q8H PRN (Reason: fever or pain) Qty: 60 RF: 0 hydromorphone 2 mg tablet 2 mg PO BID PRN (Reason: pain, severe) Qty: 14 RF: 0 enoxaparin 40 mg/0.4 mL syringe 40 mg SQ DAILY Qty: 16 RF: 0 Continued atorvastatin 20 mg Tablet 20 mg PO HS RF: 0 aspirin [Aspir-81] 81 mg Tablet,Delayed Release (Dr/Ec) 81 mg PO QPM RF: 0 diazepam [Valium] 2 mg Tablet 2 mg PO Q6 PRN (Reason: Anxiety) RF: 0 gabapentin [Neurontin] 300 mg Capsule 1,200 mg PO TID RF: 0 lisinopril 40 mg Tablet 40 mg PO QAM RF: 0 Prilosec OTC 20 mg Tablet,Delayed Release (Dr/Ec) 20 mg PO QPM RF: 0 duloxetine 30 mg Capsule,Delayed Release(Dr/Ec) 90 mg PO HS RF: 0 clobetasol 0.05 % Cream 1 applic TOPICAL DAILY PRN (Reason: Rash) RF: 0 fluticasone propionate [Flonase Allergy Relief] 50 mcg/actuation [place],Suspension 2 spray INTRANASAL DAILY PRN (Reason: Congestion) RF: 0 tobramycin-dexamethasone 0.3-0.05 % Drops,Suspension 1 drp OPHTHALMIC (EYE) Q6H PRN (Reason: Eye Irritation) RF: 0 diclofenac sodium 75 mg tablet,delayed release (DR/EC) 75 mg PO BID RF: 0 vitamin B complex Tablet 1 tab PO DAILY RF: 0 labetalol 100 mg tablet 100 mg PO BID RF: 0 metformin [Glucophage XR] 750 mg tablet extended release 24 hr 750 mg PO DAILY RF: 0 Changed furosemide [Lasix] 20 mg Tablet 20 mg PO QAM Qty: 0 RF: 0 Discontinued cholecalciferol (vitamin D3) [Vitamin D3] 1,000 unit Tablet,Chewable 1,000 unit PO DAILY RF: 0 Discharge Orders: Discharge Order (Routine); Ordered 11/14/19 Ordered By: Jonathan Mcbride Admission Data Admit Date/Time: 11/10/19 00:50 Attending Provider: Jonathan Mcbride Admit Provider: Michael Cabrera Primary Care Provider: Facundo Dorantes Other Providers: Michael Cabrera ; Delio Galicia ; [facility],Home Healthcare Other Interventions: Discharge Summary Assessment (RN) Last Done: 11/14/19 14:42
== END 2019-11-14 18:02 | disposition home health service (06) | DRG 493 ==
LOC: ED 20:22 → 2W 11-10 00:50

== ENCOUNTER 2020-05-23 08:11 | Inpatient (IN) ==
--- NOTE | 2020-04-22 15:22 | PAT Medication Instructions ---
Medication Instructions Date of Service April 22, 2020 Home Medications Medication Instructions Recorded acetaminophen 1,000 mg PO Q8H PRN #60 tab 11/14/19 furosemide [Lasix] 20 mg PO QAM #0 tab 11/14/19 aspirin [Aspir-81] 81 mg PO QPM atorvastatin 20 mg PO HS diazepam [Valium] 2 mg PO Q6 PRN gabapentin [Neurontin] 1,200 mg PO TID lisinopril 40 mg PO QAM omeprazole magnesium [Prilosec OTC] 20 mg PO QPM clobetasol 1 applic TOPICAL DAILY PRN duloxetine 90 mg PO HS fluticasone propionate [Flonase Allergy Relief] 2 spray INTRANASAL DAILY PRN tobramycin-dexamethasone 1 drp OPHTHALMIC (EYE) Q6H PRN diclofenac sodium 75 mg PO BID labetalol 100 mg PO BID metformin [Glucophage XR] 750 mg PO QAM vitamin B complex 1 tab PO QPM acetaminophen 1,000 mg PO Q8H PRN furosemide [Lasix] 20 mg PO QAM Vitamin D3 1 dose PO DAILY ASK your surgeon for instructions diclofenac sodium 75 mg PO BID STOP taking 24 hours before surgery clobetasol 1 applic TOPICAL DAILY PRN DO NOT take the morning of surgery lisinopril 40 mg PO QAM metformin [Glucophage XR] 750 mg PO QAM furosemide [Lasix] 20 mg PO QAM Vitamin D3 1 dose PO DAILY Take morning of surgery With a small sip of water, OTHERWISE NOTHING TO EAT OR DRINK AFTER MIDNIGHT: diazepam [Valium] 2 mg PO Q6 PRN (if needed) gabapentin [Neurontin] 1,200 mg PO TID fluticasone propionate [Flonase Allergy Relief] 2 spray INTRANASAL DAILY PRN (if needed) tobramycin-dexamethasone 1 drp OPHTHALMIC (EYE) Q6H PRN (if needed) labetalol 100 mg PO BID acetaminophen 1,000 mg PO Q8H PRN (okay to take up to 4 hours prior to surgery if needed) Take evening before surgery aspirin [Aspir-81] 81 mg PO QPM atorvastatin 20 mg PO HS diazepam [Valium] 2 mg PO Q6 PRN (if needed) gabapentin [Neurontin] 1,200 mg PO TID omeprazole magnesium [Prilosec OTC] 20 mg PO QPM duloxetine 90 mg PO HS fluticasone propionate [Flonase Allergy Relief] 2 spray INTRANASAL DAILY PRN (if needed) tobramycin-dexamethasone 1 drp OPHTHALMIC (EYE) Q6H PRN (if needed) labetalol 100 mg PO BID vitamin B complex 1 tab PO QPM acetaminophen 1,000 mg PO Q8H PRN (if needed) Other Notes If you have any questions please call us at [phone] or [phone] or [phone] or [phone]
--- NOTE | 2020-04-29 11:16 | Anesthesiology Consultation ---
Date of Service April 29, 2020 Assessment & Plan (1) Encounter for pre-operative examination: Per PAT assessment on 04/29: Travel screen- Lives in [facility]. Traveled to [place] for doctor appt. No known COVID-19 positive contacts. No history of COVID-19 testing. No current COVID-19 related symptoms. Per patient, scheduled for COVID-19 test (per surgeon preop protocol) the week of surgery* - Right vocal cord fold injection: 01/08/20: First view with glidescope was grade 1 view. Difficult to pass ETT into trachea due to length of EFF and glide stylet not reaching end of ETT, kept bending prior to entry into trachea, changed to MAC3 with DL, easily passed ETT with grade 1 view. - Check BSG AM DOS - *ETOH use: patient reports 4 glasses of wine/day typically starting after 17:30. Does not typically do AM drinking.* Chart Review Chart Review: Acceptable Risk for Surgery and Patient seen in Pre Admission Testing Teaching & Discussion Pre-Anesthesia Teaching/Discussion Notes: Instructed NPO after midnight before surgery,except medications with 15 cc of water. Medication instructions provided according to the PAT guidelines. History Surgery Operation Date: 05/23/20 07:00 Proposed Procedures p Right Anterior Total Hip Arthroplasty - Vineet Vieira, Height/Weight Height: 5 ft 7 in Weight: 87.5 kg Allergies Allergy/AdvReac Type Severity Reaction Status Date / Time hydrocodone Allergy Intermediate ITCHING Verified 04/29/20 10:02 AND VOMITING nickel Allergy Intermediate SWELLING Verified 04/29/20 10:02 AND ITCHING adhesive Allergy Unknown WELTS WITH Verified 04/29/20 10:02 TAPE-PAPER TAPE OKAY codeine Allergy Unknown ITCHING Verified 04/29/20 10:02 AND VOMITING erythromycin base Allergy Unknown METAL Verified 04/29/20 10:02 TASTE IN MOUTH, VOMITING tramadol Allergy Unknown ITCHING Verified 04/29/20 10:02 SOMETIMES oxycodone AdvReac Mild ITCH, N&V Verified 04/29/20 10:02 morphine AdvReac Unknown ITCHING, Verified 04/29/20 10:02 VOMITING Penicillins AdvReac Unknown HEART Verified 04/29/20 10:02 RACING Additional Notes: Surgeon office/OR aware of nickel allergy* Medications Home Medications Medication Instructions Recorded Confirmed Last Taken aspirin [Aspir-81] 81 mg PO QPM 08/21/18 04/29/20 01/07/20 atorvastatin 20 mg PO HS 08/21/18 04/29/20 01/07/20 21:00 diazepam [Valium] 2 mg PO Q6 PRN 08/21/18 04/29/20 08/22/18 21:00 gabapentin [Neurontin] 1,200 mg PO TID 08/21/18 04/29/20 01/08/20 04:50 lisinopril 40 mg PO QAM 08/21/18 04/29/20 01/07/20 07:30 omeprazole magnesium [Prilosec OTC] 20 mg PO QPM 08/21/18 04/29/20 01/07/20 17:00 clobetasol 1 applic TOPICAL DAILY PRN 10/17/19 04/29/20 Unknown duloxetine 90 mg PO HS 10/17/19 04/29/20 01/07/20 21:00 fluticasone propionate [Flonase 2 spray INTRANASAL DAILY PRN 10/17/19 04/29/20 Unknown Allergy Relief] tobramycin-dexamethasone 1 drp OPHTHALMIC (EYE) Q6H PRN 10/17/19 04/29/20 01/07/20 21:00 diclofenac sodium 75 mg PO BID 11/09/19 04/29/20 01/07/20 14:00 labetalol 100 mg PO BID 11/09/19 04/29/20 01/08/20 04:50 metformin [Glucophage XR] 750 mg PO QAM 11/09/19 04/29/20 01/07/20 07:30 vitamin B complex 1 tab PO QPM 11/09/19 04/29/20 01/07/20 21:00 acetaminophen 1,000 mg PO Q8H PRN #60 tab 11/14/19 04/29/20 01/07/20 16:30 furosemide [Lasix] 20 mg PO QAM #0 tab 11/14/19 04/29/20 01/07/20 07:30 Vitamin D3 1 dose PO DAILY 04/22/20 04/29/20 Unknown 3-in-1 Commode #1 ea 04/29/20 04/29/20 Unknown Wheeled Walker #1 ea 04/29/20 04/29/20 Unknown hydromorphone 2 mg tablet 2 mg PO Q6H PRN #15 tab 04/29/20 04/29/20 Unknown walker #1 ea 04/29/20 04/29/20 Unknown Past Medical History Medical History Anemia Anxiety Barretts esophagus Chronic back pain Depression Diabetes mellitus type 2, controlled NIDDM Gastroparesis GERD (gastroesophageal reflux disease) controlled Hyperlipidemia Hypertension Migraine HX MTHFR gene mutation Nocturnal hypoxia 4L O2 HS Osteoarthritis Osteoporosis Peripheral neuropathy Pulmonary embolism B/L (2002)- suspected due to OCPs but also diagnosed with MTHFR mutation/previously on anticoagulation (since discontinued) Sleep apnea BIPAP with O2 4L HS (nocturnal hypoxia) Torn rotator cuff right s/p fall (10/2019) Vocal cord paralysis Exercise / Class Metabolic Activity III < 4 Walking/Shop/Light housework (cane PRN) Past Family History Family History Mother Family hx colonic polyps Aunt Family history of diabetes mellitus Past Surgical History Surgical History History of ankle surgery LEFT LIGAMENT REPAIR History of breast biopsy History of cholecystectomy History of colonoscopy History of difficult intubation S/P Left humerus ORIF and distal radius fracture: 11/10/19: Elective glides cope secondary to decreased access to HOB/type of bed used. grade 1 view with glidescope #3 ETT #7 x1 attempt/atraumatic History of dilatation and curettage ABLATION History of esophagogastroduodenoscopy (EGD) EGD: 08/23/18: MAC sedation History of laryngoscopy w/ Rt vocal fold injections - 01/08/2020 [facility] History of open reduction and internal fixation (ORIF) procedure LEFT HUMERUS/WRIST History of tooth extraction Past Anesthesia History Difficult Airway (SEE BELOW) and No Family Hx of Anesthesia Complications S/P Left humerus ORIF and distal radius fracture: 11/10/19: Elective glidescope secondary to decreased access to HOB/type of bed used. grade 1 view with glidescope #3 ETT #7 x1 attempt/atraumatic Right vocal cord fold injection: 01/08/20: First view with glidescope was grade 1 view. Difficult to pass ETT into trachea due to length of EFF and glide stylet not reaching end of ETT, kept bending prior to entry into trachea, changed to MAC3 with DL, easily passed ETT with grade 1 view. History of PONV No Hx of PONV and No Hx of Motion Sickness Social History Smoking Status: Former smoker Do You Dip or Chew Tobacco: No Smoking End Date: QUIT/LIGHT USE WHILE IN COLLEGE Hx Alcohol Use: Yes Alcohol type: wine alcohol intake frequency: 3 or more drinks per day Alcohol Intake Frequency Comment: 4 GLASSES OF WINE PER DAY Hx Substance Use: No substance use type: marijuana Substance Use Type Other:: MEDICAL MARIJUANA-VAPES HS/TOPICAL PRN-WILL BRING CARD AM DOS Last Used Substance: Days (ago) Review of Systems Reflux controlled. Patient denies chest pain, fever, chills, shortness of breath, cough, wheezing, palpitations. Physical Exam Vital Signs VITALS BP 144/86 P 73 TEMP 98.9 SP02 94%RA RESP 18 PHYSICAL Mildly decreased cervical extension Full TMJ range of motion. TMD 3 finger breaths Mallampati Score 1 Dentition: chipped side teeth per patient, 2 crowns on sides Lungs: clear throughout to auscultation Cardiac: regular rate and rhythm, I/ systolic murmur Spine: normal Carotid arteries: negative bruit Extremities: no edema Testing Laboratory Results 04/29/20 11:49 04/29/20 11:49 PT 10.1 Seconds (9.0-12.0) 04/29/20 11:49 INR 1.0 (0.9-1.1) 04/29/20 11:49 APTT 25.1 Seconds (21.0-31.0) 04/29/20 11:49 Hemoglobin A1c 4.9 % (4.5-5.6) 04/29/20 11:49 Blood Type AB Positive 04/29/20 11:49 Antibody Screen NEGATIVE 04/29/20 11:49 11/10/19 HGBA1C 5.2% Electrocardiogram Date: 11/12/19 Normal sinus rhythm at 86 bpm. Minimal voltage criteria for LVH, may be normal variant. Cannot rule out anterior infarct, age undetermined. Chest X-Ray Date: 11/09/19 Findings: + NAD Nondisplaced cortical fractures anterior left eighth and ninth ribs. Pancreas are unremarkable. No evidence of pneumothorax. IMPRESSION: Nondisplaced cortical fractures anterior left eighth and ninth ribs. Echocardiogram Date: 05/18/17 LVEF 60-64%. No RWMA. Mildly increased cLV wall thickness. Trivial TR. Normal pulmonary pressures. Mitral valve anatomy is normal. Mitral stenosis and significant mitral regurgitation is absent.
[2020-04-29 13:07] LABS: Basophils # (auto) 0.03 K/uL (0-0.2); Basophils % (auto) 0.6 %; Eosinophils # (auto) 0.25 K/uL (0-0.5); Eosinophils % (auto) 5.2 %; Hematocrit (blood only) 38.7 % (37-47); Hemoglobin 12.3 g/dL (12.0-16.0); Immature Granulocytes # (auto) 0.01 K/uL (0.00-0.02); Immature Granulocytes % (auto) 0.2 %; Lymphocytes # (auto) 1.18 K/uL (1.2-3.4); Lymphocytes % (auto) 24.4 %; Mean Corpuscular Hemoglobin 31.3 pg (25-34); Mean Corpuscular Hgb Conc 31.8 g/dL (32-36); Mean Corpuscular Volume 98.5 fL (80-100); Mean Platelet Volume 10.4 fL (7.4-10.4); Monocytes # (auto) 0.39 K/uL (0.11-0.59); Monocytes % (auto) 8.1 %; Neutrophils # (auto) 2.98 K/uL (1.4-6.5); Neutrophils % (auto) 61.5 %; Platelet Count 203 K/uL (130-400); RDW Coefficient of Variation 14.3 % (11.5-14.5); RDW Standard Deviation 51.1 fL (36.4-46.3); Red Blood Count 3.93 M/uL (4.2-5.4); White Blood Count 4.84 K/uL (4.8-10.8)
[2020-04-29 13:23] LABS: Partial Thromboplastin Ratio 0.9; Partial Thromboplastin Time 25.1 Seconds (21.0-31.0); Prothrombin Time 10.1 Seconds (9.0-12.0)
[2020-04-29 13:43] LABS: Estimated Average Glucose 94 mg/dl; Hemoglobin A1C 4.9 % (4.5-5.6)
[2020-04-29 13:44] LABS: BUN Creatinine Ratio 40.2 (10-20); Calcium 8.9 mg/dl (8.5-10.1); Creatinine Clr Calc Pharmacy 179.3 ml/min; Est GFR (African American) 132.1; Potassium 4.3 mmol/L (3.5-5.1)
--- NOTE | 2020-05-22 11:45 | History & Physical Report ---
Date of Service May 22, 2020 Assessment & Plan (1) Osteoarthritis of right hip: We will proceed with a right lateral total hip arthroplasty. Postoperatively she will be started on Xarelto for DVT prophylaxis and kept overnight for postoperative medical management. She plans to use home health upon discharge. Marybeth is a low risk for joint replacement surgery without any major comorbidities. Present on Admission?: Yes History of Present Illness Chief Complaint: Primary osteoarthritis of the right hip Primary Care Provider: Facundo Dorantes DO Rueda is a pleasant 64-year-old female who is been dealing with chronic increasing right hip and groin pain. X-rays and clinical examination have been diagnostic for primary osteoarthritis of the right hip. After failing extensive conservative treatment, she has elected to proceed with a right anterior total hip arthroplasty. Allergies Allergy/AdvReac Type Severity Reaction Status Date / Time hydrocodone Allergy Intermediate ITCHING Verified 04/29/20 10:02 AND VOMITING nickel Allergy Intermediate SWELLING Verified 04/29/20 10:02 AND ITCHING adhesive Allergy Unknown WELTS WITH Verified 04/29/20 10:02 TAPE-PAPER TAPE OKAY codeine Allergy Unknown ITCHING Verified 04/29/20 10:02 AND VOMITING erythromycin base Allergy Unknown METAL Verified 04/29/20 10:02 TASTE IN MOUTH, VOMITING tramadol Allergy Unknown ITCHING Verified 04/29/20 10:02 SOMETIMES oxycodone AdvReac Mild ITCH, N&V Verified 04/29/20 10:02 morphine AdvReac Unknown ITCHING, Verified 04/29/20 10:02 VOMITING Penicillins AdvReac Unknown HEART Verified 04/29/20 10:02 RACING Home Medications Home Medications Medication Instructions Recorded Confirmed Type aspirin [Aspir-81] 81 mg PO QPM 08/21/18 04/29/20 History atorvastatin 20 mg PO HS 08/21/18 04/29/20 History diazepam [Valium] 2 mg PO Q6 PRN 08/21/18 04/29/20 History gabapentin [Neurontin] 1,200 mg PO TID 08/21/18 04/29/20 History lisinopril 40 mg PO QAM 08/21/18 04/29/20 History omeprazole magnesium [Prilosec OTC] 20 mg PO QPM 08/21/18 04/29/20 History clobetasol 1 applic TOPICAL DAILY PRN 10/17/19 04/29/20 History duloxetine 90 mg PO HS 10/17/19 04/29/20 History fluticasone propionate [Flonase 2 spray INTRANASAL DAILY PRN 10/17/19 04/29/20 History Allergy Relief] tobramycin-dexamethasone 1 drp OPHTHALMIC (EYE) Q6H PRN 10/17/19 04/29/20 History diclofenac sodium 75 mg PO BID 11/09/19 04/29/20 History labetalol 100 mg PO BID 11/09/19 04/29/20 History metformin [Glucophage XR] 750 mg PO QAM 11/09/19 04/29/20 History vitamin B complex 1 tab PO QPM 11/09/19 04/29/20 History acetaminophen 1,000 mg PO Q8H PRN #60 tab 11/14/19 04/29/20 Rx furosemide [Lasix] 20 mg PO QAM #0 tab 11/14/19 04/29/20 Rx Vitamin D3 1 dose PO DAILY 04/22/20 04/29/20 History 3-in-1 Commode #1 ea 04/29/20 04/29/20 Rx Wheeled Walker #1 ea 04/29/20 04/29/20 Rx hydromorphone 2 mg tablet 2 mg PO Q6H PRN #15 tab 04/29/20 04/29/20 Rx walker #1 ea 04/29/20 04/29/20 Rx oxycodone-acetaminophen 5 mg-325 1 tab PO Q6H PRN #30 tab 05/13/20 Rx mg tablet hydromorphone 2 mg tablet 2 mg PO Q6H PRN #30 tab 05/15/20 Rx Past Med/Surg History Medical History Anemia Anxiety Barretts esophagus Chronic back pain Depression Diabetes mellitus type 2, controlled NIDDM Gastroparesis GERD (gastroesophageal reflux disease) controlled Hyperlipidemia Hypertension Migraine HX MTHFR gene mutation Nocturnal hypoxia 4L O2 HS Osteoarthritis Osteoporosis Peripheral neuropathy Pulmonary embolism B/L (2002)- suspected due to OCPs but also diagnosed with MTHFR mutation/previously on anticoagulation (since discontinued) Sleep apnea BIPAP with O2 4L HS (nocturnal hypoxia) Torn rotator cuff right s/p fall (10/2019) Vocal cord paralysis Surgical History History of ankle surgery LEFT LIGAMENT REPAIR History of breast biopsy History of cholecystectomy History of colonoscopy History of difficult intubation S/P Left humerus ORIF and distal radius fracture: 11/10/19: Elective glidescope secondary to decreased access to HOB/type of bed used. 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: No Beliefs That Will Affect Care: None marital status: Single Current Living Situation: Significant Other Current Living Situation Comment: [facility] Feels Safe at Home: Yes Smoking Status: Former smoker Second Hand Exposure: No ; Hx Alcohol Use: Yes Alcohol type: wine Hx Substance Use: No Review of Systems Review of Systems: All systems reviewed & are unremarkable except as noted in HPI & below Physical Exam Constitutional: WD/WN, vitals as above Eyes: PERRL, conjunctivae normal, anicteric sclerae ENMT: external ear and nose normal, oropharynx normal Neck: trachea midline, no thyromegaly Respiratory: normal respiratory effort Cardiovascular: RRR, no murmur, no edema Gastrointestinal (Abdomen): normal bowel sounds, soft, nontender, no hepatosplenomegaly Musculoskeletal: Physical examination of the right hip reveals decreased range of motion with flexion, internal and external rotation. There is significant groin pain with forced internal rotation of the hip his leg lengths are essentially equal. Psychiatric: A+Ox3, euthymic affect Results & Data Results & Data ([facility]) Diagnostic Findings Radiographs of the right hip and pelvis demonstrate advanced osteoarthritis with joint space narrowing osteophyte formation and pdxf-ro-gvof articulation. PG Care Time/CCT Total # of Minutes Spent Total Time Spent with Patient: Total time spent is greater than 50% in coordination of care (as documented) at patient's floor/unit and/or counseling patient: Coding Level of Care Code 81228 Initial Inpt Care Lvl 3 Diagnoses Osteoarthritis of right hip M16.11
--- NOTE | 2020-05-23 08:03 | History & Physical Bridge Note ---
Date of Service May 23, 2020 History & Physical Bridge Note I have examined the patient, reviewed the History & Physical and in the interval since the performance of the History & Physical I have noted the following changes of clinical significance: no changes noted
[~2020-05-23 08:11] MED LIST: ACETAMINOPHEN 500 MG TAB PO SCH; ATROPINE SULFATE 0.1 MG/ML 10ML SYR IV PRN; BUPIVACAINE 0.5 % 5 MG/1 ML PF 10ML VIAL ONE; CEFAZOLIN 2000MG 2,000 MG/15 ML SYR IV SCH; FAMOTIDINE 20 MG TAB PO SCH; GABAPENTIN 600 MG DOSE PO SCH; LABETALOL HCL IV 5 MG/ML 20ML IV PRN; LIDOCAINE HCL 2% 2 ML VIAL/AMP(20MG/ML) INFIL ONE; LR 500ML BOLUS, THEN 15ML/HR IV SCH; LR 60ML/HR IV SCH; MEPERIDINE HCL 25 MG/ML CARP/VIAL IV PRN; MIDAZOLAM HCL 1 MG/ML 2ML VIAL ONE; ONDANSETRON INJ 2 MG/ML 2 ML VIAL IV PRN; ONDANSETRON INJ 2 MG/ML 2 ML VIAL ONE; PHENYLEPHRINE 100MCG/ML 5ML SYR IV PRN; PROPOFOL IV EMULSION 10 MG/ML 20 ML VIAL IV ONE; ROPIVACAINE 0.5% HCL/PF 150 MG, BUPIVACAINE 0.5% MPF 30 ML, EPINEPHrine 30MG/30ML (OR U... INSTIL SCH; TRANEXAMIC ACID / 0.7% NACL 1,000 MG/100 ML BAG IV SCH; TRANEXAMIC ACID 1,000 MG **IV Pre-op IV SCH; ePHEDrine sulfate 50 MG/ML AMP IV PRN; fentaNYL citrate 100 MCG/2 ML VIAL IV PRN; fentaNYL citrate 100 MCG/2 ML VIAL ONE
[2020-05-23] MEDS ORDERED: MIDAZOLAM HCL 1 MG/ML 2ML VIAL ONE (10:14)
[2020-05-23] MEDS ORDERED: PHENYLEPHRINE HCL 10 MG/ML VIAL ONE (10:37)
[2020-05-23] MEDS ORDERED: PROPOFOL IV EMULSION 10 MG/ML 20 ML VIAL IV ONE ×2 (10:45→11:27)
--- NOTE | 2020-05-23 11:32 | Operative Report ---
PG Post Operative Report Pre & Post Diagnosis Operation Date: 05/23/20 10:00 Pre-Op Diagnosis: RIGHT HIP DEGENERATIVE JOINT DISEASE Post-Op Diagnosis: RIGHT HIP DEGENERATIVE JOINT DISEASE I identified the patient and participated in the time-out.: Yes Procedure Operation Date: 05/23/20 10:00 Actual Procedures p Right Anterior Total Hip Arthroplasty(Right) - Vineet Vieira DO Surgeon Vineet Vieira DO Customer Experience Intern Vineet Flanagan PAC Estimated Blood Loss 300 Findings Consistent with Post-Op Diagnosis Specimens Right femoral head Complications none Disposition Disposition: Recovery Room Indications Marybeth is a pleasant 64-year-old female who presented my office with chronic increasing right hip and groin pain. X-rays and clinical examination were diagnostic for primary osteoarthritis of the right hip. After failing conservative treatment, she elected to proceed with a right total hip arthroplasty. Description of Procedure Implants used I used a Biomet Taperloc total hip arthroplasty system with a size 8 standard offset micro Taperloc stem, a 52 mm G7 cup with a 25mm screw, an E1 polyethylene liner, a 36 mm ceramic head with a -3 neck. Marybeth arrived at the hospital for the above procedure. She was seen in the preoperative holding area and the operative extremity was identified and signed. She was given a spinal anesthetic, a preoperative antibiotic, and TXA. She was then taken back to the operating room and laid on the table in the supine position. She was given basic sedation. The operative leg was secured to a Puristst leg positioner. The hip was then prepped and draped in sterile fashion. A timeout was done and the patient and the operative extremity was properly identified. An anterior approach was used. Dissection was taken down through the fascia and the tensor muscle belly was retracted laterally and the rectus was retracted medially. The circumflex vessels were identified and ligated. The capsule was then incised and tagged for later repair. The femoral neck was then cut and the femoral head was removed. The acetabulum was exposed. Time was spent doing a complete circumferential labral release. Sequential reaming of the acetabulum up to a size 51 reamer was done. Final reamings were done under fluoroscopy to ensure appropriate version. A Biomet 52 mm G7 cup was then impacted into place. A single 25 mm screw was placed. The E1 polyethylene liner was then snapped into place. Surrounding soft tissues were then injected with 100 cc of an orthopedic pain control cocktail. The proximal femur was then exposed. Sequential broaching up to a size 8 broach was done. Off that broach a size 36 head with a -3 neck was trialed. The hip was reduced and fluoroscopic images showed anatomic alignment of the implants in acceptable length. The broach was removed. The final size 8 standard offset micro Taperloc stem was then impacted into place. A ceramic 36 mm head with a - 3 neck was then impacted onto the stem and the hip was reduced. Final fluoroscopic images showed anatomic alignment of the hip. The capsule was then closed with #1 Vicryl suture. A dilute betadyne lavage was then done for 3 minutes. The joint was then irrigated with normal saline solution. The fascia was closed with #1 PDS suture. Skin was closed with 2-0 Vicryl, danny, and a Christina VAC dressing. She was then transferred to a hospital bed and taken to the post anesthesia care unit in stable condition. She tolerated the procedure well. Vineet Flanagan PA-C, was present for the entire procedure. He was critical for patient positioning, prepping, draping, retraction exposure, wound closure and application of sterile dressing. I attest to the content of the Intraoperative Record and any orders documented therein. Any exceptions are noted below.
--- NOTE | 2020-05-23 11:50 | Fluoroscopy Report ---
INTRAOPERATIVE RADIOGRAPHS CLINICAL HISTORY: Right hip arthroplasty. Fluoroscopy time: 23 seconds. FINDINGS: 2 spot fluoroscopic views of the right hip from an arthroplasty procedure are presented. Th e first image shows surgical absence of the femoral head with the acetabular cup in place. A single c ortical lag screw transfixes the acetabular cup. The second image shows the arthroplasty in near jane omic alignment. There is no evidence of acute fracture on these fluoroscopic views. IMPRESSION: Intraoperative images from a a right hip arthroplasty procedure as above. Electronically signed by: Dionisio David M.D. 05/23/2020 11:49 AM
--- NOTE | 2020-05-23 12:29 | XRay Report ---
XR hip 1V RT w pelvis CLINICAL HISTORY: Postop right hip arthroplasty COMPARISON: None. DISCUSSION: There are postsurgical changes of a total right hip arthroplasty. The acetabular and femo ral components appear well seated. There are overlying skin danny. There is gas present in the soft tissues consistent with recent surgery. There is no evidence of dislocation. IMPRESSION: Postsurgical changes of a total right hip arthroplasty. ACT 112: Negative or not required by law. Electronically signed by: Hector Talbot M.D. 05/23/2020 12:28 PM
--- NOTE | 2020-05-23 12:43 | Anesthesiology Progress Note ---
Date of Service May 23, 2020 Anesthesia Post Procedure Vital Signs Vital Signs: Temp Pulse Pulse Resp BP BP Pulse Ox 05/23/20 12:35 66 20 131/67 96 05/23/20 12:25 66 14 127/72 96 05/23/20 12:15 66 16 122/75 100 05/23/20 12:05 66 16 123/61 98 05/23/20 11:55 36.9 C 74 16 104/65 97 05/23/20 09:46 76 18 138/82 96 05/23/20 09:16 36.9 C 76 20 145/75 H 96 Pain Intensity Right Hip: Pain Intensity: 2 Transfer of Care Handoff Completed per policy Notes Mental Status: alert / awake / arousable Patient Amnestic to Procedure: Yes Nausea / Vomiting: adequately controlled Pain: adequately controlled Airway Patency, RR, SpO2: stable & adequate BP & HR: stable & adequate Hydration State: stable & adequate Neuraxial Anesthesia: was administered and sensory block is resolving Anesthetic Complications: no major complications apparent and Pt Satisfied with anesthetic care
[2020-05-23] MEDS ORDERED: TOBRAMYCIN/DEXAMETHASONE OPH SUSP 2.5 ML BTL OP PRN (13:30)
[2020-05-23] MEDS ORDERED: FLUTICASONE PROPIONATE NA SPR 16 GM BTL PRN (13:30)
[2020-05-23] MEDS ORDERED: HYDROmorphone INJ 0.5 MG/0.5 ML SYR IV PRN (13:30)
[2020-05-23] MEDS ORDERED: diazePAM 2 MG TABLET PO PRN (13:30)
[2020-05-23] MEDS ORDERED: PHARMACY GLYCEMIC MGMT CONSULT PRN (14:09)
--- NOTE | 2020-05-23 14:22 | Pharmacy Report ---
Glycemic Control Consultation - Date of Service May 23, 2020 - Scope Scope: Glycemic Pharmacist consulted for glycemic control and to write orders per [facility] inpatient glycemic control protocol. - Objective Weight: 84.5 kg Accuchecks BSG (last 24hrs): 05/23/20 05/23/20 08:45 12:01 POC Glucose 115 H 96 HbA1c: Hemoglobin A1c 4.9 % (4.5-5.6) 04/29/20 11:49 - Recent Pertinent Medications Outpatient Anti-diabetic Regimen: * Metformin XR 750 mg PO QAM * A1c = 4.9% on 04/29/20 Risk Factors for Insulin Resistance: * Recent Surgery: POD #0 s/p R LYNETTE * Diet: T2DM - Assessment & Plan Assessment & Plan: ASSESSMENT: * 64 yo F who is POD #0 s/p R LYNETTE. PMHx significant for pre-diabetes, Anxiety, GERD, Gastroparesis, HLD, HTN, MTHFR gene mutation, OA, h/o PE. Pharmacy consulted for glycemic management. * A1c is 4.9% demonstrating excellent outpatient control. Can likely d/c metformin upon discharge. * Pre-op BSG was 115 mg/dL. Post-op BSG was 96 mg/dL. Could not see where any steroids were given perioperatively. Do not carry Metformin XR 750 so will add Novolog with a loose CF/CR. PLAN FOR INPATIENT GLYCEMIC CONTROL: * Holding outpatient oral diabetes medications * Basal insulin * None * Bolus insulin * NovoLog per scale ACHS or Q6hrs while NPO * Goal Range: Low 110 mg/dL - High 140 mg/dL * Correction Factor: 35 mg/dL/unit * Nutritional / Prandial insulin per carb ratio of 1 unit per 12 grams CHO consumed * Please note that the plan above was derived based on current level of insulin resistance and hospital stress. These recommendations are appropriate for inpatient admission only. Plan of care upon discharge will need to be reassessed to avoid potential outpatient hypo/hyperglycemia. Thank you.
[2020-05-23] MEDS ORDERED: OXYCODONE HCL IR 5 MG TAB (IMMEDIATE RELEASE) PO PRN (14:25)
[2020-05-23] MEDS ORDERED: GLUCOSE 10 TABS/TUBE PO PRN (14:30)
[2020-05-23] MEDS ORDERED: GLUCAGON FOR INJ 1 MG VIAL IM PRN (14:30)
[2020-05-23] MEDS ORDERED: CARBOHYDRATES FOR HYPOGLYCEMIA PO PRN (14:30)
[2020-05-23] MEDS ORDERED: GLUCOSE 40% GEL 15 GM TUBE PO PRN (14:30)
[2020-05-23] MEDS ORDERED: DEXTROSE 50% 50 ML SYRINGE IV PRN (14:30)
[2020-05-23] MEDS: GABAPENTIN 400 MG CAP PO SCH ×2 (15:49→21:57)
[2020-05-23] MEDS: ACETAMINOPHEN 500 MG TAB PO SCH ×2 (15:49→21:58)
[2020-05-23] MEDS: KETOROLAC 30 MG/ML VIAL IV SCH ×2 (16:24→20:33)
[2020-05-23] MEDS ORDERED: HYDROmorphone HCL 2 MG TAB PO PRN (18:06)
[2020-05-23] MEDS: INSULIN ASPART 100 UNITS/ML 3 ML PEN SC SCH ×2 (18:35→22:02)
[2020-05-23] MEDS: POLYETHYLENE (MIRALAX) 17 GM PACK PO SCH (20:32)
[2020-05-23] MEDS ORDERED: OXYCODONE HCL 10 MG TABCR (OXYCONTIN) PO SCH (21:00)
[2020-05-23] MEDS: DULOXETINE HCL 30 MG CAP PO SCH (21:57)
[2020-05-23] MEDS: ATORVASTATIN 20 MG TAB PO SCH (21:57)
[2020-05-23] MEDS: LABETALOL HCL 100 MG TAB PO SCH (21:57)
[2020-05-23] MEDS: PANTOprazole 40 MG TAB PO SCH (21:58)
[2020-05-24] MEDS: KETOROLAC 30 MG/ML VIAL IV SCH ×4 (01:17→21:17)
[2020-05-24] MEDS: ACETAMINOPHEN 500 MG TAB PO SCH ×3 (06:46→21:20)
[2020-05-24 07:18] LABS: Basophils # (auto) 0.02 K/uL (0-0.2); Basophils % (auto) 0.3 %; Eosinophils # (auto) 0.07 K/uL (0-0.5); Hematocrit (blood only) 34.2 % (37-47); Hemoglobin 10.8 g/dL (12.0-16.0); Immature Granulocytes # (auto) 0.02 K/uL (0.00-0.02); Immature Granulocytes % (auto) 0.3 %; Lymphocytes # (auto) 0.65 K/uL (1.2-3.4); Lymphocytes % (auto) 9.6 %; Mean Corpuscular Hgb Conc 31.6 g/dL (32-36); Mean Corpuscular Volume 98.3 fL (80-100); Monocytes # (auto) 0.59 K/uL (0.11-0.59); Monocytes % (auto) 8.7 %; Neutrophils # (auto) 5.44 K/uL (1.4-6.5); Neutrophils % (auto) 80.1 %; Platelet Count 165 K/uL (130-400); RDW Coefficient of Variation 13.4 % (11.5-14.5); RDW Standard Deviation 47.6 fL (36.4-46.3); Red Blood Count 3.48 M/uL (4.2-5.4); White Blood Count 6.79 K/uL (4.8-10.8)
[2020-05-24 07:44] LABS: BUN Creatinine Ratio 33.7 (10-20); Calcium 8.6 mg/dl (8.5-10.1); Creatinine Clr Calc Pharmacy 181.4 ml/min; Est GFR (African American) 133.3; Potassium 4.2 mmol/L (3.5-5.1)
--- NOTE | 2020-05-24 08:08 | Orthopedic Progress Note ---
Date of Service May 24, 2020 Assessment & Plan (1) History of right hip replacement: Overall she is doing fairly well. She will be seen by physical therapy today for ambulation and range of motion exercises she is on Xarelto for DVT prophylaxis. She has a history of a pulmonary embolism in the past and she also has the MTHFR gene mutation. She lives alone and wants to talk to case management about a rehab stay versus home health. We will see how she does with physical therapy today and think about discharge either tomorrow or Tuesday. She is on Dilaudid for pain control. Present on Admission?: Yes Subjective Marybeth was seen and examined at bedside this morning. Overall she is doing very well. She has a little bit of soreness in the hip but is not too bad. She has been up to a bedside commode but has not ambulated to the bathroom yet. She was able to get some sleep last night. She has no other complaints. Physical Exam Musculoskeletal: On physical examination of the right hip, the Christina VAC dressing is to suction. Her leg lengths are equal. She has active dorsiflexion and plantarflexion of the right ankle. Results & Data ([facility]) Vital Signs (Past 12 Hours) Vital Signs Temp Pulse Resp BP Pulse Ox 05/24/20 07:46 36.5 C 84 16 134/76 94 05/24/20 03:44 36.5 C 67 15 130/72 98 05/23/20 23:35 37.0 C 68 16 147/77 H 100 Laboratory Results H & H 04/29/20 05/24/20 Range/Units 11:49 06:50 Hgb 12.3 10.8 L (12.0-16.0) g/dL Hct 38.7 34.2 L (37-47) % Coagulation 04/29/20 Range/Units 11:49 INR 1.0 (0.9-1.1) Diagnostic Findings Postoperative x-rays of the right hip show the prosthesis to be in anatomic alignment without any evidence of fracture, dislocation, or loosening. PG Care Time/CCT Total # of Minutes Spent Total Time Spent with Patient: Total time spent is greater than 50% in coordination of care (as documented) at patient's floor/unit and/or counseling patient: Coding Level of Care Code None Diagnoses History of right hip replacement Z96.641
[2020-05-24] MEDS ORDERED: FUROSEMIDE 20 MG TAB PO SCH (09:00)
[2020-05-24] MEDS: GABAPENTIN 400 MG CAP PO SCH ×3 (09:08→21:19)
[2020-05-24] MEDS: lisinopriL 40 MG TAB PO SCH (09:09)
[2020-05-24] MEDS: RIVAROXABAN 10 MG TABLET PO SCH (09:09)
[2020-05-24] MEDS: LABETALOL HCL 100 MG TAB PO SCH ×2 (09:09→21:19)
[2020-05-24] MEDS: DOCUSATE SODIUM 100 MG CAP PO SCH ×2 (09:09→21:18)
[2020-05-24] MEDS: INSULIN ASPART 100 UNITS/ML 3 ML PEN SC SCH ×4 (09:12→21:34)
[2020-05-24] MEDS: POLYETHYLENE (MIRALAX) 17 GM PACK PO SCH ×3 (13:25→21:17)
[2020-05-24] MEDS: ATORVASTATIN 20 MG TAB PO SCH (21:18)
[2020-05-24] MEDS: DULOXETINE HCL 30 MG CAP PO SCH (21:18)
[2020-05-24] MEDS: PANTOprazole 40 MG TAB PO SCH (21:18)
[2020-05-25] MEDS: KETOROLAC 30 MG/ML VIAL IV SCH ×2 (00:40→08:39)
[2020-05-25] MEDS: ACETAMINOPHEN 500 MG TAB PO SCH ×2 (05:16→13:11)
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
--- NOTE | 2020-05-25 07:25 | Discharge Summary ---
Date of Service May 25, 2020 Admission HPI Per Admitting Provider Marybeth is a pleasant 64-year-old female who is been dealing with chronic increasing right hip and groin pain. X-rays and clinical examination have been diagnostic for primary osteoarthritis of the right hip. After failing extensive conservative treatment, she has elected to proceed with a right anterior total hip arthroplasty. Principal Diagnosis Right total hip arthroplasty Discharge Data Allergies Allergy/AdvReac Type Severity Reaction Status Date / Time hydrocodone Allergy Intermediate ITCHING Verified 04/29/20 10:02 AND VOMITING nickel Allergy Intermediate SWELLING Verified 04/29/20 10:02 AND ITCHING adhesive Allergy Unknown WELTS WITH Verified 04/29/20 10:02 TAPE-PAPER TAPE OKAY codeine Allergy Unknown ITCHING Verified 04/29/20 10:02 AND VOMITING erythromycin base Allergy Unknown METAL Verified 04/29/20 10:02 TASTE IN MOUTH, VOMITING tramadol Allergy Unknown ITCHING Verified 04/29/20 10:02 SOMETIMES oxycodone AdvReac Mild ITCH, N&V Verified 04/29/20 10:02 morphine AdvReac Unknown ITCHING, Verified 04/29/20 10:02 VOMITING Penicillins AdvReac Unknown HEART Verified 04/29/20 10:02 RACING Consultations 05/24/20 08:00 Consult Case Management - Discharge Planning Routine Procedures Performed Operation Date: 05/23/20 10:00 Actual Procedures p Right Anterior Total Hip Arthroplasty(Right) - Vineet Vieira DO Ordered Studies 05/23/20 10:00 FL fluoroscopy <1hr Routine FL hip RT 1V Routine Hospital Course (1) History of right hip replacement: On May 23, 2020 Marybeth arrived at [facility] and underwent a right anterior total hip arthroplasty without complication. She had a spinal anesthetic. Postoperatively she was started on Xarelto for DVT prophylaxis and transferred to the general orthopedic floors. Her hospital course was uneventful. On postop day #1 her H&H was stable and her pain was well controlled. She was able to participate well with physical therapy doing ambulation and range of motion exercises. On postop day #2 she continued to do fairly well. She was a little concerned about some weakness in her leg. She was seen again by physical therapy. She was then discharged home. She will follow-up with orthopedics in 2 weeks. Total Time Total Time Spent Total Time Spent (In Minutes): 20 Discharge Plan Discharge Items Patient Disposition: Home - Home Health Services Reason For Visit: RIGHT HIP DEGENERATIVE JOINT DISEASE Discharge Diagnosis: Right total hip arthroplasty Activity: As commented below Non-emergency contact: Surgeon Call non-emergency contact if: your wound has increased redness and your wound has increased drainage Follow-up/Referrals: Facundo Dorantes DO [Primary Care Provider] - Diet: Carb Consistent or DM2 Addtl Attending Provider Instructions: Activity and Therapy Recommendations: * If you are using [facility] then therapy will be provided at your home until they feel you have accomplished all of your goals. * If you are using [facility] then Physical Therapy will be provided until they feel you are ready to start Outpatient Physical Therapy. * If you are not using home therapy then Outpatient Physical Therapy should start about 3-5 days from your day of surgery. Therapy will last about 6-10 weeks * You were shown a series of exercises in the hospital. Do these exercises three times each day including the exercises you were shown in physical therapy. * Get up and walk several times each day.~ For the first four weeks, try not to stand or walk for more than one hour at a time. If you do stand or walk for more than one hour, you will not hurt anything, but your leg will likely swell.~~ * As you feel comfortable, you may change from the walker or crutches to a cane and~then to independent walking. Medications: * Narcotic You will likely be sent home from the hospital with a prescription for the narcotic pain medication that worked best throughout your stay. * Aspirin Most patients will be required to take Aspirin 81mg twice a day for 6 weeks after surgery. This is obtained [id number] and a prescription is not necessary. * Other medications may be prescribed for specific circumstances. If you have any questions, please call the office at . * Resume previous home medications unless otherwise instructed TEDs/Elastic Stockings: The white elastic stockings help limit swelling and prevent blood clots from forming in your legs. The more you wear them, the more they work. Wear them for six weeks. Dressing Care: You will likely have a purple VAC dressing after surgery. This dressing will keep the incision dry and promote early healing. After about 7 days the batteries will wear out and the VAC will lose suction. Simply remove the dressing at that time and throw everything away, including the small suction machine. Then, you may leave the danny open to air or cover them with a dry dressing so they do not rub on your pants. The danny will be removed at your 2 week follow-up appointment. Showering: You may shower immediately with the purple VAC dressing. Let the shower spray hit your opposite side and slowly pat the plastic dry. Do not soak the dressing. After the dressing is removed you may shower normally with the danny exposed. Let soapy water run over the danny and pat them dry. Things To Watch For: * Drainage from the incision site that occurs more than one week after your surgery. * Increased redness at the incision site. * Fever above 102 degrees Fahrenheit. * Unusual chest pain or shortness of breath. * Call [facility] at with any of the above problems Follow-Up Visit: Follow-up with Dr. Vieira's PA (Vineet Flanagan) 2-3 weeks after your day of surgery. He will remove your danny and answer any questions. If you have any additional questions or concerns, Dr Vieira is usually in the office at the same time and will be available An appointment was probably scheduled when you signed-up for surgery in the office. If you have any questions call Office Instructions: More detailed instructions as well as Frequently Asked Questions were provided in a folder by our office when you signed-up for surgery. Please review these instructions when you get home. If you have any further questions or concerns, please feel free to call the office at [phone] Pending Studies at Discharge: No Stand-Alone Forms: My [facility], Smoking Cessation Medications and DC Order Prescriptions: New Xarelto 10 mg Tablet 10 mg PO DAILY 30 Days Qty: 30 RF: 0 Continued (DME) 3-in-1 Commode Misc See Rx Instructions .ROUTE .MEDSUPPLY Qty: 1 RF: 0 (DME) Wheeled Walker [facility] See Rx Instructions .ROUTE .MEDSUPPLY Qty: 1 RF: 0 (DME) walker [facility] [place] [facility] See Rx Instructions .ROUTE .MEDSUPPLY Qty: 1 RF: 0 atorvastatin 20 mg Tablet 20 mg PO HS RF: 0 diazepam [Valium] 2 mg Tablet 2 mg PO Q6 PRN (Reason: Anxiety) RF: 0 gabapentin [Neurontin] 300 mg Capsule 1,200 mg PO TID RF: 0 lisinopril 40 mg Tablet 40 mg PO QAM RF: 0 omeprazole magnesium [Prilosec OTC] 20 mg Tablet,Delayed Release (Dr/Ec) 20 mg PO QPM RF: 0 duloxetine 30 mg Capsule,Delayed Release(Dr/Ec) 30 mg PO HS RF: 0 clobetasol 0.05 % Cream 1 applic TOPICAL DAILY PRN (Reason: Rash) RF: 0 fluticasone propionate [Flonase Allergy Relief] 50 mcg/actuation [place],Suspension 2 spray INTRANASAL DAILY PRN (Reason: Congestion) RF: 0 tobramycin-dexamethasone 0.3-0.05 % Drops,Suspension 1 drp OPHTHALMIC (EYE) Q6H PRN (Reason: Eye Irritation) RF: 0 diclofenac sodium 75 mg tablet,delayed release (DR/EC) 75 mg PO BID RF: 0 vitamin B complex Tablet 1 tab PO QPM RF: 0 labetalol 100 mg tablet 100 mg PO BID RF: 0 metformin [Glucophage XR] 750 mg tablet extended release 24 hr 750 mg PO QAM RF: 0 furosemide [Lasix] 20 mg Tablet 20 mg PO QAM Qty: 0 RF: 0 acetaminophen 500 mg tablet 1,000 mg PO Q8H PRN (Reason: fever or pain) Qty: 60 RF: 0 Vitamin D3 1 dose PO DAILY RF: 0 hydromorphone [Dilaudid] 2 mg tablet 2 mg PO Q6H PRN (Reason: pain) Qty: 30 RF: 0 Discontinued aspirin [Aspir-81] 81 mg Tablet,Delayed Release (Dr/Ec) 81 mg PO QPM RF: 0 Discharge Orders: Discharge Order (Routine); Ordered 05/25/20 Ordered By: Vineet Vieira Admission Data Admit Date/Time: 05/23/20 12:00 Attending Provider: Vineet Vieira Admit Provider: Vineet Vieira Primary Care Provider: Facundo Dorantes Other Providers: [facility] Coding Level of Care Code D/C Day Management <30 mins Diagnoses History of right hip replacement Z96.641
[2020-05-25] MEDS: RIVAROXABAN 10 MG TABLET PO SCH (08:38)
[2020-05-25] MEDS: lisinopriL 40 MG TAB PO SCH (08:38)
[2020-05-25] MEDS: DOCUSATE SODIUM 100 MG CAP PO SCH (08:39)
[2020-05-25] MEDS: GABAPENTIN 400 MG CAP PO SCH ×2 (08:39→13:10)
[2020-05-25] MEDS: LABETALOL HCL 100 MG TAB PO SCH (08:39)
[2020-05-25] MEDS: INSULIN ASPART 100 UNITS/ML 3 ML PEN SC SCH (08:42)
== END 2020-05-25 13:58 | disposition home health service (06) | DRG 470 ==
LOC: ASU 08:11 → 3E 12:00

== ENCOUNTER 2020-09-26 11:10 | Inpatient (IN) ==
--- NOTE | 2020-09-16 08:43 | PAT Medication Instructions ---
Medication Instructions Date of Service September 16, 2020 Home Medications Medication Instructions Recorded acetaminophen 1,000 mg PO Q8H PRN #60 tab 11/14/19 furosemide [Lasix] 20 mg PO QAM #0 tab 11/14/19 3-in-1 Commode #1 ea 04/29/20 Wheeled Walker #1 ea 04/29/20 walker #1 ea 04/29/20 hydromorphone [Dilaudid] 2 mg PO Q6H PRN #30 tab 05/23/20 atorvastatin 20 mg PO HS diazepam [Valium] 2 mg PO Q6 PRN gabapentin [Neurontin] 1,200 mg PO TID lisinopril 40 mg PO QAM omeprazole magnesium [Prilosec OTC] 20 mg PO QPM clobetasol 1 applic TOPICAL DAILY PRN duloxetine 30 mg PO HS fluticasone propionate [Flonase Allergy Relief] 2 spray INTRANASAL DAILY PRN tobramycin-dexamethasone 1 drp OPHTHALMIC (EYE) Q6H PRN diclofenac sodium 75 mg PO BID labetalol 100 mg PO BID metformin [Glucophage XR] 750 mg PO QAM vitamin B complex 1 tab PO QPM acetaminophen 1,000 mg PO Q8H PRN furosemide [Lasix] 20 mg PO QAM hydromorphone [Dilaudid] 2 mg PO Q6H PRN venlafaxine 25 mg tablet 25 mg PO QAM bupropion HCl 150 mg PO QAM cholecalciferol (vitamin D3) 25 mcg PO QAM escitalopram oxalate 20 mg PO QAM ASK your surgeon for instructions diclofenac sodium 75 mg PO BID STOP taking 24 hours before surgery clobetasol 1 applic TOPICAL DAILY PRN DO NOT take the morning of surgery lisinopril 40 mg PO QAM metformin [Glucophage XR] 750 mg PO QAM acetaminophen 1,000 mg PO Q8H PRN furosemide [Lasix] 20 mg PO QAM hydromorphone [Dilaudid] 2 mg PO Q6H PRN cholecalciferol (vitamin D3) 25 mcg PO QAM Take morning of surgery With a small sip of water, OTHERWISE NOTHING TO EAT OR DRINK AFTER MIDNIGHT: diazepam [Valium] 2 mg PO Q6 PRN (if needed) gabapentin [Neurontin] 1,200 mg PO TID fluticasone propionate [Flonase Allergy Relief] 2 spray INTRANASAL DAILY PRN (if needed) tobramycin-dexamethasone 1 drp OPHTHALMIC (EYE) Q6H PRN (if needed) labetalol 100 mg PO BID venlafaxine 25 mg tablet 25 mg PO QAM bupropion HCl 150 mg PO QAM escitalopram oxalate 20 mg PO QAM Take evening before surgery diazepam [Valium] 2 mg PO Q6 PRN (if needed) gabapentin [Neurontin] 1,200 mg PO TID omeprazole magnesium [Prilosec OTC] 20 mg PO QPM duloxetine 30 mg PO HS fluticasone propionate [Flonase Allergy Relief] 2 spray INTRANASAL DAILY PRN (if needed) tobramycin-dexamethasone 1 drp OPHTHALMIC (EYE) Q6H PRN (if needed) labetalol 100 mg PO BID vitamin B complex 1 tab PO QPM acetaminophen 1,000 mg PO Q8H PRN (if needed) hydromorphone [Dilaudid] 2 mg PO Q6H PRN (if needed) Other Notes If you have any questions please call us at [phone] or [phone] or [phone] or [phone]
--- NOTE | 2020-09-16 09:30 | Anesthesiology Consultation ---
Date of Service September 16, 2020 Assessment & Plan (1) Encounter for pre-operative examination: COVID Status: As of 09/16 assessment, patient denies travel to endemic area, known exposure/sick contacts, or symptoms of COVID19. Patient instructed that they and their household members must follow strict social distancing guidelines, wear a mask in public and avoid travel for 14 days prior to surgery. Preoperative COVID19 testing to be completed prior to surgery per surgeon's ar rangements. Patient made aware to self-isolate as much as possible between COVID testing and surgery. Marked HTN on exam at [facility]. PCP office notified, and scheduled patient for acute visit 09/16. Pt started on Amlodipine 5mg, to RTO for recheck in 1 week. PCP aware of upcoming surgery. Chart Review Chart Review: Acceptable Risk for Surgery (pending BP check @ PCP) and Patient seen in Pre Admission Testing Teaching & Discussion Instructed NPO after midnight before surgery, except medications with 15 cc of water. Medication instructions provided according to the [facility] guidelines. History Surgery Operation Date: 09/26/20 13:00 Proposed Procedures p Right Reverse Total Shoulder Arthroplasty - Vineet Vieira, Height/Weight Height: 5 ft 7 in Weight: 85.5 kg Allergies Allergy/AdvReac Type Severity Reaction Status Date / Time adhesive Allergy Intermediate WELTS WITH Verified 09/15/20 09:17 TAPE-PAPER TAPE OKAY codeine Allergy Intermediate ITCHING Verified 09/15/20 09:17 AND VOMITING erythromycin base Allergy Intermediate METAL Verified 09/15/20 09:17 TASTE IN MOUTH, VOMITING hydrocodone Allergy Intermediate ITCHING Verified 09/15/20 09:17 AND VOMITING nickel Allergy Intermediate SWELLING Verified 09/15/20 09:17 AND ITCHING tramadol Allergy Mild ITCHING Verified 09/15/20 09:17 SOMETIMES morphine AdvReac Intermediate ITCHING, Verified 09/15/20 09:17 VOMITING Penicillins AdvReac Intermediate HEART Verified 09/15/20 09:17 RACING oxycodone AdvReac Mild ITCH, N&V Verified 09/15/20 09:17 Medications Home Medications Medication Instructions Recorded Confirmed Last Taken atorvastatin 20 mg PO HS 08/21/18 09/15/20 08/21/20 diazepam [Valium] 2 mg PO Q6 PRN 08/21/18 09/15/20 05/23/20 06:45 gabapentin [Neurontin] 1,200 mg PO TID 08/21/18 09/15/20 08/21/20 lisinopril 40 mg PO QAM 08/21/18 09/15/20 08/21/20 omeprazole magnesium [Prilosec OTC] 20 mg PO QPM 08/21/18 09/15/20 08/21/20 clobetasol 1 applic TOPICAL DAILY PRN 10/17/19 09/15/20 Unknown duloxetine 30 mg PO HS 10/17/19 09/15/20 08/21/20 fluticasone propionate [Flonase 2 spray INTRANASAL DAILY PRN 10/17/19 09/15/20 05/23/20 06:45 Allergy Relief] tobramycin-dexamethasone 1 drp OPHTHALMIC (EYE) Q6H PRN 10/17/19 09/15/20 05/16/20 diclofenac sodium 75 mg PO BID 11/09/19 09/15/20 08/21/20 labetalol 100 mg PO BID 11/09/19 09/15/20 08/21/20 metformin [Glucophage XR] 750 mg PO QAM 11/09/19 09/15/20 08/21/20 vitamin B complex 1 tab PO QPM 11/09/19 09/15/20 08/21/20 acetaminophen 1,000 mg PO Q8H PRN #60 tab 11/14/19 09/15/20 05/23/20 03:00 furosemide [Lasix] 20 mg PO QAM #0 tab 11/14/19 09/15/20 08/21/20 3-in-1 Commode #1 ea 04/29/20 09/08/20 Unknown Wheeled Walker #1 ea 04/29/20 09/08/20 Unknown walker #1 ea 04/29/20 09/08/20 Unknown hydromorphone [Dilaudid] 2 mg PO Q6H PRN #30 tab 05/23/20 09/15/20 Unknown venlafaxine 25 mg tablet 25 mg PO QAM 07/15/20 09/15/20 08/21/20 bupropion HCl 150 mg PO QAM 08/21/20 09/15/20 08/21/20 cholecalciferol (vitamin D3) 25 mcg PO QAM 08/21/20 09/15/20 08/21/20 [Vitamin D3] escitalopram oxalate 20 mg PO QAM 08/21/20 09/15/20 08/21/20 hydromorphone 2 mg tablet 2 mg PO Q6H PRN #30 tab 09/16/20 Unknown amlodipine 5 mg PO DAILY 09/17/20 09/17/20 Unknown Past Medical History Medical History (Updated 09/17/20 @ 10:21 by Tom Hernandez) Alcohol abuse Recently seen in ED for intoxication, 07/2020. Anemia Anxiety Barretts esophagus Chronic back pain Depression Diabetes mellitus type 2, controlled NIDDM Gastroparesis GERD (gastroesophageal reflux disease) controlled Hyperlipidemia Hypertension Markedly elevated at [facility] appt. Seen by PCP same-day for eval and Amlodipine added to regimen. Migraine HX MTHFR gene mutation Nocturnal hypoxia 4L O2 HS Osteoarthritis Osteoporosis Peripheral neuropathy Pulmonary embolism B/L (2002)- suspected due to OCPs but also diagnosed with MTHFR mutation/previously on anticoagulation (since discontinued) Sleep apnea BIPAP with O2 4L HS (nocturnal hypoxia) Torn rotator cuff right s/p fall (10/2019) Vocal cord paralysis planning surgery in september 2020 at [place] Exercise / Class Metabolic Activity III < 4 Walking/Shop/Light housework (Does not do steps very often, denies CP or SOB with ambulation) Past Family History Family History Mother Family hx colonic polyps Aunt Family history of diabetes mellitus Past Surgical History Surgical History History of ankle surgery LEFT LIGAMENT REPAIR History of breast biopsy History of cholecystectomy History of colonoscopy History of difficult intubation S/P Left humerus ORIF and distal radius fracture: 11/10/19: Elective glidescope secondary to decreased access to HOB/type of bed used. grade 1 view with glidescope #3 ETT #7 x1 attempt/atraumatic History of dilatation and curettage ABLATION History of esophagogastroduodenoscopy (EGD) EGD: 08/23/18: MAC sedation History of laryngoscopy w/ Rt vocal fold injections - 01/08/2020 [facility] History of open reduction and internal fixation (ORIF) procedure LEFT HUMERUS/WRIST History of right hip replacement (~04/2020) History of tooth extraction Hx of colonoscopy Hx of esophagogastroduodenoscopy Past Anesthesia History No Hx of Anesthesia Complications and No Family Hx of Anesthesia Complications History of PONV No Hx of PONV and No Hx of Motion Sickness Social History Smoking Status: Never smoker Do You Dip or Chew Tobacco: No Hx Alcohol Use: Yes Alcohol type: wine alcohol intake frequency: 3 or more drinks per day (Can be up to six drinks, evenings only, pt feels will be OK inpatient without ETOH) Hx Substance Use: Yes substance use type: marijuana Substance Use Type Other:: MEDICAL MARIJUANA-VAPES HS/TOPICAL PRN-WILL BRING CARD AM DOS Last Used Substance: Days (ago) Last Used Substance Other:: medical marijuanna -- will bring in card to copy Review of Systems Pt denies any recent chest pain, shortness of breath, cough, fever, URI, or uncontrolled acid reflux. +palpitations, occ with anxiety Physical Exam Vital Signs BP: 191/100. Rpt manual 5 mins later 180/100. Pt has a headache, denies visual changes. Patient's PCP office was notified of this, scheduled pt for acute visit 09/16. P: 63bpm SPO2: 97% RA T: 98.1 F R: 12 ENMT Mouth: + dental restorations (few crowns, one temp crown broke off) and + chipped teeth; no loose teeth Thyromental Distance: > or= 3.5 Finger Breadths Mallampati Class: II Neck normal visual inspection and + limited neck extension (mildly, some pain with extension) Respiratory normal respiratory effort Auscultation: lungs clear to auscultation bilaterally Cardiovascular Rate/Rhythm: regular rate and regular rhythm Heart Sounds: no murmur Vessels: no carotid bruit Extremities: no edema Testing Laboratory Results Blood Type AB Positive 09/16/20 10:27 Antibody Screen NEGATIVE 09/16/20 10:27 08/21/20 WBC: 5.55 H/H: 13.0/39.7 PLATELETS: 211 SODIUM: 141 POTASSIUM: 3.7 CHLORIDE: 107 CO2: 23 BUN: 14 CREATININE: 0.67 GLUCOSE: 99 PT: 10 PTT: 23.4 INR: 0.9 Electrocardiogram Date: 08/21/20 Findings: + NSR @ (77bpm) 1st degree A-V block. When compared with ECG of 12-NOV-2019 07:23, No significant change was found. Chest X-Ray Date: 08/21/20 Findings: + NAD
--- NOTE | 2020-09-25 07:07 | History & Physical Report ---
Date of Service September 25, 2020 Assessment & Plan (1) Rotator cuff tear, right: We will proceed with a right reverse shoulder arthroplasty. Postoperatively she will be placed in a sling and kept overnight in the hospital for postoperative medical management. She plans to use home health upon discharge. Present on Admission?: Yes History of Present Illness Chief Complaint: Rotator cuff arthropathy of the right shoulder Primary Care Provider: Facundo Dorantes DO Rueda is a pleasant 64-year-old female whose been dealing with chronic right shoulder pain. She has had constant pain in the shoulder but is been weaker recently. I do have an MRI which shows a chronic retracted rotator cuff tear. She recently underwent a hip replacement and has done well with that. After failing extensive conservative treatment with the right shoulder, she has elected to proceed with a right reverse shoulder arthroplasty. Allergies Allergy/AdvReac Type Severity Reaction Status Date / Time adhesive Allergy Intermediate WELTS WITH Verified 09/15/20 09:17 TAPE-PAPER TAPE OKAY codeine Allergy Intermediate ITCHING Verified 09/15/20 09:17 AND VOMITING erythromycin base Allergy Intermediate METAL Verified 09/15/20 09:17 TASTE IN MOUTH, VOMITING hydrocodone Allergy Intermediate ITCHING Verified 09/15/20 09:17 AND VOMITING nickel Allergy Intermediate SWELLING Verified 09/15/20 09:17 AND ITCHING tramadol Allergy Mild ITCHING Verified 09/15/20 09:17 SOMETIMES morphine AdvReac Intermediate ITCHING, Verified 09/15/20 09:17 VOMITING Penicillins AdvReac Intermediate HEART Verified 09/15/20 09:17 RACING oxycodone AdvReac Mild ITCH, N&V Verified 09/15/20 09:17 Home Medications Home Medications Medication Instructions Recorded Confirmed Type atorvastatin 20 mg PO HS 08/21/18 09/15/20 History diazepam [Valium] 2 mg PO Q6 PRN 08/21/18 09/15/20 History gabapentin [Neurontin] 1,200 mg PO TID 08/21/18 09/15/20 History lisinopril 40 mg PO QAM 08/21/18 09/15/20 History omeprazole magnesium [Prilosec OTC] 20 mg PO QPM 08/21/18 09/15/20 History clobetasol 1 applic TOPICAL DAILY PRN 10/17/19 09/15/20 History duloxetine 30 mg PO HS 10/17/19 09/15/20 History fluticasone propionate [Flonase 2 spray INTRANASAL DAILY PRN 10/17/19 09/15/20 History Allergy Relief] tobramycin-dexamethasone 1 drp OPHTHALMIC (EYE) Q6H PRN 10/17/19 09/15/20 History diclofenac sodium 75 mg PO BID 11/09/19 09/15/20 History labetalol 100 mg PO BID 11/09/19 09/15/20 History metformin [Glucophage XR] 750 mg PO QAM 11/09/19 09/15/20 History vitamin B complex 1 tab PO QPM 11/09/19 09/15/20 History acetaminophen 1,000 mg PO Q8H PRN #60 tab 11/14/19 09/15/20 Rx furosemide [Lasix] 20 mg PO QAM #0 tab 11/14/19 09/15/20 Rx 3-in-1 Commode #1 ea 04/29/20 09/08/20 Rx Wheeled Walker #1 ea 04/29/20 09/08/20 Rx walker #1 ea 04/29/20 09/08/20 Rx hydromorphone [Dilaudid] 2 mg PO Q6H PRN #30 tab 05/23/20 09/15/20 Rx venlafaxine 25 mg tablet 25 mg PO QAM 07/15/20 09/15/20 History bupropion HCl 150 mg PO QAM 08/21/20 09/15/20 History cholecalciferol (vitamin D3) 25 mcg PO QAM 08/21/20 09/15/20 History [Vitamin D3] escitalopram oxalate 20 mg PO QAM 08/21/20 09/15/20 History hydromorphone 2 mg tablet 2 mg PO Q6H PRN #30 tab 09/16/20 Rx amlodipine 5 mg PO DAILY 09/17/20 09/17/20 History Past Med/Surg History Medical History Alcohol abuse Recently seen in ED for intoxication, 07/2020. Anemia Anxiety Barretts esophagus Chronic back pain Depression Diabetes mellitus type 2, controlled NIDDM Gastroparesis GERD (gastroesophageal reflux disease) controlled Hyperlipidemia Hypertension Markedly elevated at PAT appt. Seen by PCP same-day for eval and Amlodipine added to regimen. Migraine HX MTHFR gene mutation Nocturnal hypoxia 4L O2 HS Osteoarthritis Osteoporosis Peripheral neuropathy Pulmonary embolism B/L (2002)- suspected due to OCPs but also diagnosed with MTHFR mutation/previously on anticoagulation (since discontinued) Sleep apnea BIPAP with O2 4L HS (nocturnal hypoxia) Torn rotator cuff right s/p fall (10/2019) Vocal cord paralysis planning surgery in september 2020 at [facility] History of ankle surgery LEFT LIGAMENT REPAIR History of breast biopsy History of cholecystectomy History of colonoscopy History of difficult intubation S/P Left humerus ORIF and distal radius fracture: 11/10/19: Elective glidescope secondary to decreased access to HOB/type of bed used. grade 1 view with glidescope #3 ETT #7 x1 attempt/atraumatic History of dilatation and curettage ABLATION History of esophagogastroduodenoscopy (EGD) EGD: 08/23/18: MAC sedation History of laryngoscopy w/ Rt vocal fold injections - 01/08/2020 [facility] History of open reduction and internal fixation (ORIF) procedure LEFT HUMERUS/WRIST History of right hip replacement (~04/2020) History of tooth extraction Hx of colonoscopy Hx of esophagogastroduodenoscopy Family History Mother Family hx colonic polyps Aunt Family history of diabetes mellitus Social History Smoking Status: Never smoker Second Hand Exposure: No; Hx Alcohol Use: Yes Alcohol type: wine Hx Substance Use: Yes Last Used Substance: Days (ago) Last Used Substance Other:: medical marijuanna -- will bring in card to copy Substance Use Type Other:: MEDICAL MARIJUANA-VAPES HS/TOPICAL PRN-WILL BRING CARD AM DOS Preferred Language: Nepalese Communication Ability: Effective [employer]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 Beliefs That Will Affect Care: None marital status: Single Current Living Situation: Spouse Current Living Situation Comment: [facility] Feels Safe at Home: Yes Assistive Devices: Glasses Review of Systems Review of Systems: All systems reviewed & are unremarkable except as noted in HPI & below Physical Exam Constitutional: WD/WN, vitals as above Eyes: PERRL, conjunctivae normal, anicteric sclerae ENMT: external ear and nose normal, oropharynx normal Neck: trachea midline, no thyromegaly Respiratory: normal respiratory effort Cardiovascular: RRR, no murmur, no edema Gastrointestinal (Abdomen): normal bowel sounds, soft, nontender, no hepatosplenomegaly Musculoskeletal: Physical examination of the right shoulder reveals decreased range of motion and significant weakness. There is tenderness palpation along the anterior glenohumeral joint line. The right upper extremity is neurovascularly intact. Psychiatric: A+Ox3, euthymic affect Results & Data Results & Data ([facility]) Diagnostic Findings Radiographs of the right shoulder show some signs of osteoarthritis with blunting of the greater tuberosity and some superior migration of the humeral head on the glenoid. PG Care Time/CCT Total # of Minutes Spent Total Time Spent with Patient: Total time spent is greater than 50% in coordination of care (as documented) at patient's floor/unit and/or counseling patient: Coding Level of Care Code None Diagnoses Rotator cuff tear, right M75.101
--- NOTE | 2020-09-26 10:36 | History & Physical Bridge Note ---
Date of Service September 26, 2020 History & Physical Bridge Note I have examined the patient, reviewed the History & Physical and in the interval since the performance of the History & Physical I have noted the following changes of clinical significance: no changes noted
[~2020-09-26 11:10] MED LIST changes: -ATROPINE SULFATE 0.1 MG/ML 10ML SYR IV PRN; -CEFAZOLIN 2000MG 2,000 MG/15 ML SYR IV SCH; -LABETALOL HCL IV 5 MG/ML 20ML IV PRN; -LIDOCAINE HCL 2% 2 ML VIAL/AMP(20MG/ML) INFIL ONE; +LR 500ML BOLUS IV SCH; -LR 500ML BOLUS, THEN 15ML/HR IV SCH; -MEPERIDINE HCL 25 MG/ML CARP/VIAL IV PRN; -MIDAZOLAM HCL 1 MG/ML 2ML VIAL ONE; -ONDANSETRON INJ 2 MG/ML 2 ML VIAL IV PRN; -ONDANSETRON INJ 2 MG/ML 2 ML VIAL ONE; -PHENYLEPHRINE 100MCG/ML 5ML SYR IV PRN; -PROPOFOL IV EMULSION 10 MG/ML 20 ML VIAL IV ONE; -TRANEXAMIC ACID / 0.7% NACL 1,000 MG/100 ML BAG IV SCH; +TRANEXAMIC ACID 1,000 MG **IV Intra-op IV SCH; +ceFAZolin 2000MG 2,000 MG/15 ML SYR IV SCH; +dexAMETHasone 4 MG TAB PO SCH; -ePHEDrine sulfate 50 MG/ML AMP IV PRN; -fentaNYL citrate 100 MCG/2 ML VIAL IV PRN; -fentaNYL citrate 100 MCG/2 ML VIAL ONE
[2020-09-26] MEDS ORDERED: MIDAZOLAM HCL 1 MG/ML 2ML VIAL ONE (12:28)
[2020-09-26] MEDS ORDERED: DEXAMETHASONE SOD INJ 4 MG/ML VIAL ONE (12:28)
[2020-09-26] MEDS ORDERED: fentaNYL citrate 100 MCG/2 ML VIAL ONE (12:28)
[2020-09-26] MEDS ORDERED: ONDANSETRON INJ 2 MG/ML 2 ML VIAL ONE (12:28)
[2020-09-26] MEDS ORDERED: ROCURONIUM BROMIDE 10 MG/ML 5 ML VIAL IV ONE (12:28)
[2020-09-26] MEDS ORDERED: LIDOCAINE HCL 2% 2 ML VIAL/AMP(20MG/ML) INFIL ONE (12:28)
[2020-09-26] MEDS ORDERED: PROPOFOL IV EMULSION 10 MG/ML 20 ML VIAL IV ONE (12:28)
[2020-09-26] MEDS ORDERED: ATROPINE SULFATE 0.1 MG/ML 10ML SYR IV PRN (12:54)
[2020-09-26] MEDS ORDERED: ePHEDrine sulfate 50 MG/ML AMP IV PRN (12:54)
[2020-09-26] MEDS ORDERED: PROMETHAZINE HCL 12.5 MG in SODIUM CHLORIDE 0.9% 50 ML IV PRN (12:54)
[2020-09-26] MEDS ORDERED: METOCLOPRAMIDE HCL INJ 5 MG/ML 2 ML VIAL IV PRN ×2 (12:54→15:55)
[2020-09-26] MEDS ORDERED: fentaNYL citrate 100 MCG/2 ML VIAL IV PRN (12:54)
[2020-09-26] MEDS ORDERED: HYDROmorphone INJ 2 MG/ML SYR/VIAL IV PRN (12:54)
[2020-09-26] MEDS ORDERED: ONDANSETRON INJ 2 MG/ML 2 ML VIAL IV PRN ×2 (12:54→15:55)
[2020-09-26] MEDS ORDERED: ROPIVACAINE 0.5% 5 MG/ML 30 ML VIAL ONE (12:58)
[2020-09-26] MEDS ORDERED: ORTHO JOINT ANESTHETIC ONE (12:59)
[2020-09-26] MEDS ORDERED: NEOSTIGMINE METHYLSULFATE 5 MG/5 ML SYR ONE (14:38)
[2020-09-26] MEDS ORDERED: GLYCOPYRROLATE 0.2 MG/ML VIAL ONE (14:38)
--- NOTE | 2020-09-26 14:42 | Operative Report ---
PG Post Operative Report Pre & Post Diagnosis Operation Date: 09/26/20 13:10 Pre-Op Diagnosis: Rotator cuff arthropathy right shoulder with disease of the long head of the biceps tendon Post-Op Diagnosis: Rotator cuff arthropathy right shoulder with disease of the long head of the biceps tendon I identified the patient and participated in the time-out.: Yes Procedure Operation Date: 09/26/20 13:10 Actual Procedures p Right Reverse Total Shoulder Arthroplasty with open biceps tenodesis as a distinct and separate procedure (modifier 59) (Right) - Vineet Vieira DO Surgeon Vineet Vieira DO Labels Molder Vineet Flanagan PAC Estimated Blood Loss 200 Findings Consistent with Post-Op Diagnosis Specimens Right humeral head Complications none Disposition Disposition: Recovery Room Indications Marybeth is a pleasant 64-year-old female who is been doing with chronic increasing right shoulder pain. MRI showed a large chronic retracted rotator cuff tear. After failing extensive conservative treatment, she elected proceed with a right reverse shoulder arthroplasty. Description of Procedure A CPT code modifier 59: The long head of the biceps tendon was enlarged and inflamed consistent with tendinopathy. A tenodesis was opted. This was a separate and distinct portion of the procedure. For these reasons, a CPT code modifier 59 will be added to this case. Implants used: I used a [employer]omet Comprehensive reverse total shoulder arthroplasty system with a size 9 press fit micro humeral stem, a +6 humeral tray and a standard humeral bearing, a 25 mm small augmented baseplate with a 6.5 mm central screw and superior and inferior locking screws, and a size 36 mm eccentric glenosphere. Marybeth arrived at [facility] for the above procedure. She was seen in the preoperative holding area and the operative extremity was identified and signed. She was given a preoperative antibiotic, TXA, and an interscalene nerve block. She was taken back to the operating room, laid on table in supine position, and put under general anesthesia. She was then put into the beachchair position. The shoulder was then prepped and draped in sterile fashion. A timeout was done and the patient and the operative extremity was properly identified. A deltopectoral approach was used. Dissection was taken down through the fascia and the deltoid was retracted laterally and the conjoined tendon was retracted medially. The anterior shoulder was exposed. The biceps groove was opened up and the biceps tendon was examined extensively. The biceps tendon demonstrated enlargement and inflammatory changes consistent with longstanding inflammation in the context of osteoarthritis and cuff arthropathy. The long head of the biceps tendon was then tenodesed to the upper border of the pectoralis major. This was a separate and distinct portion of the procedure. The subscapularis was then directly released off the lesser tuberosity with a peel technique. The inferior capsule was released and the humeral head was dislocated. A canal finding reamer was sent down the center of the humeral canal. Sequential reaming up to a size 9 reamer was done. Off that reamer, a proximal humeral resection guide was placed. The proximal humerus was resected at 135 of inclination and 25 of retroversion. Osteophytes were then removed and the glenoid was exposed. Time was spent doing a complete capsular and labral release. The glenoid guide was then placed in the inferior aspect of the glenoid. A 3.2 mm Steinmann pin was then placed into the glenoid vault at 10 of inclination. The glenoid baseplate was then reamed. The final size 25 mm small augment baseplate was then impacted in the place. A 6.5 mm central screw was then placed followed by superior and inferior locking screws. A 36 mm eccentric glenosphere was then impacted into place. Surrounding soft tissues were then injected with 100 cc an orthopedic pain control cocktail. The proximal humerus was then exposed. Sequential broaching of the humerus up to a size 9 broach was done. Off that broach a +6 humeral tray was trialed. The shoulder was then reduced, brought through a full range of motion, and felt to be stable. The shoulder was then dislocated and the broach was removed. The final size 9 micro press-fit humeral stem was then impacted into place. A standard humeral bearing was then snapped onto a +6 humeral tray. The humeral tray was then impacted onto the humeral stem. The shoulder was once again reduced, brought through a full range of motion, and felt to be stable. The subscapularis was then tenodesed back to the lesser tuberosity with transosseous FiberWire sutures and side to side sutures with the arm in 45 of external rotation. A dilute betadyne lavage was then done for 3 minutes. The joint was then irrigated with normal saline solution. Hemostasis was obtained. The interval was closed with 2-0 Vicryl suture. The skin was then closed with 2-0 Vicryl and danny. A Silverlon dressing was placed and the arm was rested in a regular arm sling. She was then extubated and transferred to a hospital bed. She taken to the postanesthesia care unit in stable condition. She tolerated the procedure well. Vineet Flanagan PA-C, was present for the entire procedure. He was critical for patient positioning, prepping, draping, retraction exposure, wound closure and application of sterile dressing. I attest to the content of the Intraoperative Record and any orders documented therein. Any exceptions are noted below.
--- NOTE | 2020-09-26 15:27 | Anesthesiology Progress Note ---
Date of Service September 26, 2020 Anesthesia Post Procedure Vital Signs Vital Signs: Temp Pulse Pulse Resp BP Pulse Ox 09/26/20 15:21 74 20 141/77 H 95 09/26/20 15:10 76 18 143/76 H 95 09/26/20 15:03 36.5 C 79 16 147/80 H 95 09/26/20 11:35 37.1 C 77 20 146/83 H 94 Transfer of Care Handoff Completed per policy Notes Mental Status: alert / awake / arousable and participated in evaluation Patient Amnestic to Procedure: Yes Nausea / Vomiting: adequately controlled Pain: adequately controlled Airway Patency, RR, SpO2: stable & adequate BP & HR: stable & adequate Hydration State: stable & adequate Anesthetic Complications: no major complications apparent
[2020-09-26] MEDS ORDERED: NALOXONE HCL 0.4 MG/1 ML VIAL/CARP IV PRN (15:55)
[2020-09-26] MEDS ORDERED: bisacodyL 10 MG SUPP PR PRN (15:55)
[2020-09-26] MEDS ORDERED: diazePAM 2 MG TABLET PO PRN (15:55)
[2020-09-26] MEDS ORDERED: TOBRAMYCIN/DEXAMETHASONE OPH SUSP 2.5 ML BTL OP PRN (15:55)
[2020-09-26] MEDS ORDERED: MAGNESIUM HYDROXIDE SUSP 30 ML UDC PO PRN (15:55)
[2020-09-26] MEDS ORDERED: NON-FORMULARY MEDICATION (Clobetasol 0.05 % Cream) TOP PRN (15:55)
[2020-09-26] MEDS ORDERED: HYDROmorphone INJ 0.5 MG/0.5 ML SYR IV PRN (15:55)
[2020-09-26] MEDS ORDERED: oxyCODONE HCL IR 5 MG TAB (IMMEDIATE RELEASE) PO PRN (15:55)
[2020-09-26] MEDS ORDERED: FLUTICASONE PROPIONATE NA SPR 16 GM BTL PRN (15:55)
--- NOTE | 2020-09-26 15:56 | XRay Report ---
XR shoulder RT min 2V routine HISTORY: 64 years-old Female Post shoulder surgery right shoulder total joint arthroplasty COMPARISON: Chest radiograph 08/21/2020 TECHNIQUE: 2 views of the right shoulder FINDINGS: Reverse right shoulder total joint arthroplasty demonstrates satisfactory alignment. No acute fractur e or unexpected opaque foreign body. Expected postsurgical soft tissue swelling and deep tissue air w ith overlying skin danny. Moderate degeneration of the AC joint. IMPRESSION: Reverse right shoulder total joint arthroplasty with expected postoperative changes. ACT 112: Negative or not required by law. The above report was generated using voice recognition software. It may contain grammatical, syntax o r spelling errors. Electronically signed by: Osei Webber M.D. 09/26/2020 3:55 PM
[2020-09-26] MEDS: SODIUM CHLORIDE 0.9% 1000ML 1,000 ML IV SCH (17:18)
[2020-09-26] MEDS: KETOROLAC 30 MG/ML VIAL IV SCH ×2 (17:19→21:56)
[2020-09-26] MEDS ORDERED: ATORVASTATIN 20 MG TAB PO SCH (21:00)
[2020-09-26] MEDS ORDERED: DULoxetine HCL 30 MG CAP PO SCH (21:00)
[2020-09-26] MEDS ORDERED: SENNA 8.6 MG TAB PO SCH (21:00)
[2020-09-26] MEDS ORDERED: PANTOprazole 40 MG TAB PO SCH (21:00)
[2020-09-26] MEDS ORDERED: VITAMIN B COMPLEX TAB PO SCH (21:00)
[2020-09-26] MEDS: DOCUSATE SODIUM 100 MG CAP PO SCH (21:19)
[2020-09-26] MEDS: GABAPENTIN 400 MG CAP PO SCH (21:20)
[2020-09-26] MEDS: LABETALOL HCL 100 MG TAB PO SCH (21:20)
[2020-09-26] MEDS: ACETAMINOPHEN 500 MG TAB PO SCH (21:56)
[2020-09-26] MEDS: ceFAZolin 2000MG 2,000 MG/15 ML SYR IV SCH (21:56)
[2020-09-27] MEDS: KETOROLAC 30 MG/ML VIAL IV SCH ×2 (03:26→08:51)
[2020-09-27] MEDS: SODIUM CHLORIDE 0.9% 1000ML 1,000 ML IV SCH (03:26)
[2020-09-27 06:20] LABS: Basophils # (auto) 0.01 K/uL (0-0.2); Basophils % (auto) 0.1 %; Hematocrit (blood only) 39.2 % (37-47); Hemoglobin 12.7 g/dL (12.0-16.0); Immature Granulocytes # (auto) 0.02 K/uL (0.00-0.02); Immature Granulocytes % (auto) 0.3 %; Lymphocytes # (auto) 0.55 K/uL (1.2-3.4); Lymphocytes % (auto) 7.1 %; Mean Corpuscular Hemoglobin 31.5 pg (25-34); Mean Corpuscular Hgb Conc 32.4 g/dL (32-36); Mean Corpuscular Volume 97.3 fL (80-100); Mean Platelet Volume 10.3 fL (7.4-10.4); Monocytes # (auto) 0.42 K/uL (0.11-0.59); Monocytes % (auto) 5.4 %; Neutrophils % (auto) 87.1 %; Platelet Count 185 K/uL (130-400); Red Blood Count 4.03 M/uL (4.2-5.4)
[2020-09-27] MEDS: ceFAZolin 2000MG 2,000 MG/15 ML SYR IV SCH (06:32)
[2020-09-27] MEDS: ACETAMINOPHEN 500 MG TAB PO SCH (06:32)
[2020-09-27 06:54] LABS: Calcium 8.6 mg/dl (8.5-10.1); Creatinine Clr Calc Pharmacy 94.8 ml/min; Est GFR (African American) 107.7; Est GFR (Non-African American) 92.9; Potassium 4.4 mmol/L (3.5-5.1)
--- NOTE | 2020-09-27 08:31 | Orthopedic Progress Note ---
Date of Service September 27, 2020 Assessment & Plan (1) Status post reverse arthroplasty of right shoulder: Overall she is doing fairly well. She is not having much pain in the right shoulder. She will be seen by physical therapy today for ambulation and range of motion exercises. She will be discharged home on Dilaudid for pain control. She can follow-up with orthopedics in 2 weeks. Present on Admission?: Yes Admission and Anticipated Discharge Date Admission Date: September 26, 2020 Sarkis Rueda was seen and examined at bedside this morning. Overall she is doing fairly well. She not any much pain in the right shoulder. She was able to get some sleep last night. She has no complaints. Physical Exam Physical Exam: On physical examination of the right shoulder, the dressing is clean and dry. Her radial, median, and ulnar nerves are checked intact at her wrist. Her axillary nerve was not checked yet. She is wearing her sling as instructed. Results & Data ([facility]) Vital Signs (Past 12 Hours) Vital Signs Temp Pulse Resp BP Pulse Ox 09/27/20 05:42 36.3 C L 66 16 161/80 H 97 09/27/20 03:21 36.4 C L 72 16 153/81 H 94 09/27/20 00:17 36.4 C L 67 16 160/84 H 95 09/26/20 21:00 36.4 C L 71 17 131/75 93 Laboratory Results H & H 09/27/20 Range/Units 05:31 Hgb 12.7 (12.0-16.0) g/dL Hct 39.2 (37-47) % Diagnostic Findings Postoperative x-rays of the right shoulder show the prosthesis to be in anatomic alignment without any evidence of fracture, dislocation, or loosening. PG Care Time/CCT Total # of Minutes Spent Total Time Spent with Patient: Total time spent is greater than 50% in coordination of care (as documented) at patient's floor/unit and/or counseling p atient: Coding Level of Care Code None Diagnoses Status post reverse arthroplasty of right shoulder Z96.611
--- NOTE | 2020-09-27 08:32 | Discharge Summary ---
Date of Service September 27, 2020 Admission HPI Per Admitting Provider Marybeth is a pleasant 64-year-old female whose been dealing with chronic right shoulder pain. She has had constant pain in the shoulder but is been weaker recently. I do have an MRI which shows a chronic retracted rotator cuff tear. She recently underwent a hip replacement and has done well with that. After failing extensive conservative treatment with the right shoulder, she has elected to proceed with a right reverse shoulder arthroplasty. Principal Diagnosis Right reverse shoulder Discharge Data Allergies Allergy/AdvReac Type Severity Reaction Status Date / Time adhesive Allergy Intermediate WELTS WITH Verified 09/26/20 11:34 TAPE-PAPER TAPE OKAY codeine Allergy Intermediate ITCHING Verified 09/26/20 11:34 AND VOMITING erythromycin base Allergy Intermediate METAL Verified 09/26/20 11:34 TASTE IN MOUTH, VOMITING hydrocodone Allergy Intermediate ITCHING Verified 09/26/20 11:34 AND VOMITING nickel Allergy Intermediate SWELLING Verified 09/26/20 11:34 AND ITCHING tramadol Allergy Mild ITCHING Verified 09/26/20 11:34 SOMETIMES morphine AdvReac Intermediate ITCHING, Verified 09/26/20 11:34 VOMITING Penicillins AdvReac Intermediate HEART Verified 09/26/20 11:34 RACING oxycodone AdvReac Mild ITCH, N&V Verified 09/26/20 11:34 Consultations 09/26/20 15:55 Consult Case Management - Discharge Planning Routine Procedures Performed Operation Date: 09/26/20 13:10 Actual Procedures p Right Reverse Total Shoulder Arthroplasty(Right) - Vineet Vieira DO Ordered Studies 09/26/20 05:00 US - OR guided needle placemen Routine Hospital Course (1) Status post reverse arthroplasty of right shoulder: On September [facility], [facility] shoulder arthroplasty without complication. She had a general anesthetic and a right interscalene nerve block. Postoperatively she was placed in a sling and transferred to the general orthopedic floors. Her hospital course was uneventful. On postop day #1 her H&H was stable and her pain was well controlled. She was able to participate well with physical therapy doing ambulation and range of motion exercises. She was then discharged home. She will follow-up with orthopedics in 2 weeks. Total Time Total Time Spent Total Time Spent (In Minutes): 20 Discharge Plan Discharge Items Patient Disposition: Home - Home Health Services Reason For Visit: Right Shoulder Degenerative Joint Disease Discharge Diagnosis: Right reverse shoulder replacement Activity: As commented below Non-emergency contact: Surgeon Call non-emergency contact if: your wound has increased redness and your wound has increased drainage Follow-up/Referrals: Facundo Dorantes DO [Primary Care Provider] - Diet: Regular Addtl Attending Provider Instructions: Activity and Therapy Recommendations: * If you are using [facility] then therapy will be provided at your home until they feel you have accomplished all of your goals. * If you are using [facility] then Physical Therapy will be provided until they feel you are ready to start Outpatient Physical Therapy. * If you are not using home therapy then Outpatient Physical Therapy should st art about 3-5 days from your day of surgery. Therapy will last about 8-12 weeks * Wear your sling for 3 weeks, unless otherwise instructed. You may remove your sling to shower and to dress, but otherwise, you should be in your sling at all times, including while sleeping * The shoulder replacement is very stable and you can use your hand while in the sling * You were shown a series of exercises in the hospital. Do these exercises daily including the exercises you were shown in physical therapy. Medications: * Narcotic You will likely be sent home from the hospital with a prescription for the narcotic pain medication that worked best throughout your stay. * Other medications may be prescribed for specific circumstances. If you have any questions, please call the office at . * Resume previous home medications unless otherwise instructed Dressing Care: Leave the Silverlon dressing in place for 7 days. After 7 days you may remove the dressing. If the incision is not draining then you may leave the danny open to air. If there is a little bit of drainage or if the danny are getting stuck on your clothing then cover the incision with a dry dressing. The danny will be removed at your 2 week follow-up appointment. Showering: You may shower with the Silverlon dressing in place. Do not let the shower spray hit the dressing directly. Pat the Silverlon dressing dry. If the dressing becomes wet underneath, then simply remove the dressing. Keep the incision dry until you are 7 days out from the day of surgery. After 7 days you may remove the Silverlon dressing and shower with the danny exposed. Let soapy water run over the danny and pat them dry. Do not scrub or soak the incision. Things To Watch For: * Drainage from the incision site that occurs more than one week after your surgery. * Increased redness at the incision site. * Fever above 102 degrees Fahrenheit. * Unusual chest pain or shortness of breath. * Call [facility] at with any of the above problems Follow-Up Visit: Follow-up with Dr. Vieira's PA (Vineet Flanagan) 2-3 weeks after your day of surgery. He will remove your danny and answer any questions. If you have any additional questions or concerns, Dr Vieira is usually in the office at the same time and will be available An appointment was probably scheduled when you signed-up for surgery in the office. If you have any questions call More detailed instructions as well as Frequently Asked Questions were provided in a folder by our office when you signed-up for surgery. Please review these instructions when you get home. If you have any further questions or concerns, please feel free to call the office at [phone] Pending Studies at Discharge: No Stand-Alone Forms: [facility], Smoking Cessation Medications and DC Order Prescriptions: Continued (DME) 3[facility]1 [facility] See Rx Instructions .ROUTE .MEDSUPPLY Qty: 1 RF: 0 (DME) Wheeled Walker [facility] See Rx Instructions .ROUTE .MEDSUPPLY Qty: 1 RF: 0 (DME) walker [facility] See Rx Instructions .ROUTE .MEDSUPPLY Qty: 1 RF: 0 venlafaxine 25 mg tablet 25 mg PO QAM RF: 0 atorvastatin 20 mg Tablet 20 mg PO HS RF: 0 diazepam [Valium] 2 mg Tablet 2 mg PO Q6 PRN (Reason: Anxiety) RF: 0 gabapentin [Neurontin] 300 mg Capsule 1,200 mg PO TID RF: 0 lisinopril 40 mg Tablet 40 mg PO QAM RF: 0 omeprazole magnesium [Prilosec OTC] 20 mg Tablet,Delayed Release (Dr/Ec) 20 mg PO QPM RF: 0 duloxetine 30 mg Capsule,Delayed Release(Dr/Ec) 30 mg PO HS RF: 0 clobetasol 0.05 % Cream 1 applic TOPICAL DAILY PRN (Reason: Rash) RF: 0 fluticasone propionate [Flonase Allergy Relief] 50 mcg/actuation [place],Suspension 2 spray INTRANASAL DAILY PRN (Reason: Congestion) RF: 0 tobramycin-dexamethasone 0.3-0.05 % Drops,Suspension 1 drp OPHTHALMIC (EYE) Q6H PRN (Reason: Eye Irritation) RF: 0 diclofenac sodium 75 mg tablet,delayed release (DR/EC) 75 mg PO BID RF: 0 vitamin B complex Tablet 1 tab PO QPM RF: 0 labetalol 100 mg tablet 150 mg PO BID RF: 0 metformin [Glucophage XR] 750 mg tablet extended release 24 hr 750 mg PO QAM RF: 0 furosemide [Lasix] 20 mg Tablet 20 mg PO QAM Qty: 0 RF: 0 acetaminophen 500 mg tablet 1,000 mg PO Q8H PRN (Reason: fever or pain) Qty: 60 RF: 0 amlodipine 5 mg Tablet 5 mg PO DAILY RF: 0 hydromorphone [Dilaudid] 2 mg tablet 2 mg PO Q6H PRN (Reason: pain) Qty: 30 RF: 0 cholecalciferol (vitamin D3) [Vitamin D3] 25 mcg (1,000 unit) Capsule 25 mcg PO QAM RF: 0 escitalopram oxalate 20 mg tablet 20 mg PO QAM RF: 0 bupropion HCl 150 mg tablet extended release 24 hr 150 mg PO QAM RF: 0 Discharge Orders: Discharge Order (Routine); Ordered 09/27/20 Ordered By: Vineet Vieira Admission Data Admit Date/Time: 09/26/20 15:04 Attending Provider: Vineet Vieira Admit Provider: Vineet Vieira Primary Care Provider: Facundo Dorantes Coding Level of Care Code D/C Day Management <30 mins Diagnoses Status post reverse arthroplasty of right shoulder Z96.611
[2020-09-27] MEDS: DOCUSATE SODIUM 100 MG CAP PO SCH (08:43)
[2020-09-27] MEDS: GABAPENTIN 400 MG CAP PO SCH (08:45)
[2020-09-27] MEDS: LABETALOL HCL 100 MG TAB PO SCH (08:46)
[2020-09-27] MEDS ORDERED: MULTIVITAMIN TAB PO SCH (09:00)
[2020-09-27] MEDS ORDERED: amLODIPine BESYLATE 5 MG TAB PO SCH (09:00)
[2020-09-27] MEDS ORDERED: buPROPion XL 150 MG TABCR PO SCH (09:00)
[2020-09-27] MEDS ORDERED: ESCITALOPRAM OXALATE 20 MG TAB PO SCH (09:00)
[2020-09-27] MEDS ORDERED: FUROSEMIDE 20 MG TAB PO SCH (09:00)
[2020-09-27] MEDS ORDERED: VENLAFAXINE HCL 50 MG TAB PO SCH (09:00)
[2020-09-27] MEDS ORDERED: lisinopril 40 MG TAB PO SCH (09:00)
== END 2020-09-27 12:36 | disposition home or self-care (01) | DRG 483 ==
LOC: ASU 11:10 → 3E 15:04